=== PATIENT | male | born 1990 | race Caucasian/White ===

== ENCOUNTER 2020-10-14 09:31 | Emergency (ER) | payer MEDICAID, SELFPAY ==
--- NOTE | ~2020-10-14 | XR_ITS ---
EXAMINATION: XR FOREARM, RIGHT CLINICAL INFORMATION: Question foreign body COMPARISON: Right hand x-ray December 2018 TECHNIQUE: AP and lateral views of the right forearm were obtained. FINDINGS: There is a radiopaque soft tissue foreign body suggestive of a needle adjacent to the volar medial proximal shaft of the radius. Soft tissues are otherwise normal. There is an old ununited fracture of the scaphoid bone. No other fracture is seen. XR/XR forearm RT 2V IMPRESSION: Foreign body in the proximal arm adjacent to the radial shaft suggestive of a broken needle. 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
[2020-10-14 09:52] VITALS: BP 150/92; PULSE 90; RESP 16; TEMP 37.1; O2SAT 96; BMI 22.3
--- NOTE | 2020-10-14 10:04 | ED.GENADULT ---
HPI - General Adult General Chief complaint: Skin/Abscess/Foreign Body Stated complaint: cyst Time Seen by Provider: 10/14/20 09:59 Source: patient Limitations: no limitations History of Present Illness HPI narrative: Patient presents with a right forearm abscess. Patient has a longstanding history of IVDA. Patient is also on methadone. Patient unsure if he broke a needle in his arm. Positive swelling erythema and redness over the past 24-48 hours. No discharge at this time similar episodes in the past. Pain 8/10. Currently no nausea vomiting Related Data Previous Rx's Medication Instructions Recorded cephalexin 500 mg capsule 500 mg PO Q8H 10 Days #30 cap 10/14/20 doxycycline hyclate 100 mg capsule 100 mg PO BID #20 cap 10/14/20 Allergies Allergy/AdvReac Type Severity Reaction Status Date / Time No Known Allergies Allergy Unverified 10/31/19 16:56 [No Known Allergies*] Review of Systems Constitutional: Constitutional: Denies chills, Denies fatigue, Denies fever(s) and Denies headache(s) ENT: Reports as per HPI, Denies headache(s) and Denies nasal congestion Cardiovascular: Cardiovascular: Denies chest pain and Denies dyspnea Respiratory: Respiratory: Denies cough and Denies dyspnea Gastrointestinal: Gastrointestinal: Denies nausea and Denies vomiting Musculoskeletal: Musculoskeletal: Reports other (Right forearm pain) Neurologic: Denies headache(s) Endocrine: Endocrine: Denies fatigue Hematologic/Lymphatic: Hematologic/Lymphatic: Denies easy bleeding PMFSH Past Medical History Attestation statement: The following information was validated with the patient. Medical History Alcohol abuse IV drug abuse Surgical History History of tonsillectomy Social History Social History Advance Directives: No Advance Directives Information Provided: No Physical Exam Vital Signs: Vital Signs: Last Vital Signs Temp 98.7 F 10/14/20 09:52 Pulse 90 10/14/20 09:52 Resp 16 10/14/20 09:52 BP 150/92 H 10/14/20 09:52 Pulse Ox 96 10/14/20 09:52 Body Mass Index 22.3 vital signs have been reviewed as normal and appeared to be correct. Blood pressure normal. Heart rate normal. Respiration rate normal. Temperature normal. Oxygen saturation normal. Appearance: Alert. Oriented X3. No acute distress. Head: Normal external exam. Normocephalic. Atraumatic. Eyes: PERRLA. EOMI. Conjunctiva and sclera normal. Eyelids normal. ENT: Pharynx normal. Uvula midline. Moist mucous membranes. Neck: Soft full range of motion, no JVD CVS: Heart regular rate and rhythm no murmurs and rubs Respiratory: Breath sounds are clear to auscultation bilaterally. No accessory muscle use noted. Back: No CVA tenderness. Full range of motion noted. Skin: Right forearm mid positive erythematous indurated abscess present fluctuant Extremities: Positive tenderness right forearm distal pulses sensation intact. Neuro: Oriented X 3. No motor deficit. No sensory deficit. Reflexes normal. Course Course Course Narrative: Right forearm abscess Right forearm cellulitis Right forearm retained foreign body Symptoms consistent with IVDA abscess to the right forearm will get an x-ray at this time to rule out foreign body needle. Plan to do incision and drainage and placed on antibiotics Right forearm x-ray pending Positive foreign bodies seen on x-ray greater than 1 month case discussed with Dr. Rushing follow-up with surgery will be recommended Procedures Procedure Narrative Procedure Narrative: Right forearm incision drainage Right forearm cleaned with Betadine saline Sterile drape Anesthetized with 1% lidocaine Positive purulent discharge obtained with 11 blade no packing placed at this time. Wound dressed. Discharge Plan Discharge Clinical Impression: Abscess, Abscess of skin or subcutaneous tissue, Foreign body (FB) in soft tissue Patient Disposition: Home, Self-Care Instructions: Abscess (ED) Additional Instructions: Avoid IV drug use. Warm compresses 3 to 4 times a day Prescriptions: New doxycycline hyclate 100 mg capsule 100 mg PO BID Qty: 20 RF: 0 cephalexin 500 mg capsule 500 mg PO Q8H 10 Days Qty: 30 RF: 0 Referrals: Kayleigh Saini MD [Physician] - 2 days (Follow-up for right forearm foreign body)
[2020-10-14] MEDS: Lidocaine HCl 1 % 20 ML VIAL INFILTRATI (10:29)
== END 2020-10-14 10:44 | disposition home or self-care (01) ==
PROVIDERS: Emergency Provider Emergency Medicine; PCP Family Medicine
DX: L02.413 Cutaneous abscess of right upper limb (principal); M79.5 Residual foreign body in soft tissue; F19.10 Other psychoactive substance abuse, uncomplicated; F11.20 Opioid dependence, uncomplicated
CPT/HCPCS: 10060; 73090; 99283; 99284

== ENCOUNTER → 2020-10-15 11:21 | Outpatient (BNVA) | payer MEDICAID, SELFPAY | PROVIDERS: PCP Family Medicine; Visit Provider Surgery | DX: M79.5 Residual foreign body in soft tissue (principal) | CPT/HCPCS: 99202 ==

== ENCOUNTER 2020-10-28 09:01 | Day surgery (SDC) | payer MEDICAID, SELFPAY ==
[2020-10-23 13:44] VITALS: BMI 19.6
[2020-10-23 13:47] VITALS: BMI 19.6
--- NOTE | 2020-10-27 09:36 | HO.ANESPROP2 ---
Documented by User: Denise Camargo NP 10/27/20 09:36 HPI - Anesthesia Eval Consult details Narrative: 30yo M for Right Forearm Foreign Body Removal IVDA/Methadone daily PMFSH Active Problems Active Problems: All Active Problems (Updated 10/15/20 @ 11:48 by Aric Timmons MD) Foreign body (FB) in soft tissue (Acute) Past Medical History Medical History Alcohol abuse COVID-19 vaccine series completed IV drug abuse Surgical History Surgical History (Updated 10/28/20 @ 10:53 by Karina Brand MD) History of tonsillectomy Hx of tooth extraction Social History Social History (Updated 10/28/20 @ 11:11 by Karina Brand MD) Household Members Other:: mother Are you a primary critical care unit manager to a significant other at home: No Do you presently have visiting nurse or other home services: No Alcohol intake: current Patient Tobacco Use Status: Current everyday Tobacco user Tobacco use type: Cigarette Cigarettes Per Day: 10 Years Smoked: 13 Smoked in Last 30 Days: Yes Use of substances other than those prescribed or required for medical reasons: Yes Substance Use Type Other:: currently taking methadone Are you DNR?: No Advance Directives: No Advance Directives Information Provided: No Advance Directives on File: No Recently lost weight without trying: No Eating poorly because of decreased appetite: No Nutrition Risks: No Nutritional Risk Meds Allergies Allergy/AdvReac Type Severity Reaction Status Date / Time No Known Allergies Allergy Unverified 10/31/19 16:56 [No Known Allergies*] Exam Exam Date and Time: October 27, 2020 0936 Height,Weight and Vital Signs: Height 5 ft 11 in Weight 64 kg Assessment and Plan Assessment Anesthesia Assessment: Chart Reviewed Documented by User: Karina Brand MD 10/28/20 11:12 PMFSH Past Medical History Medical History Alcohol abuse COVID-19 vaccine series completed IV drug abuse Family History Family history of problems with anesthesia: No Surgical History Surgical History (Updated 10/28/20 @ 10:53 by Karina Brand MD) History of tonsillectomy Hx of tooth extraction History of Problems with Anesthesia: No Social History Social History (Updated 10/28/20 @ 11:11 by Karina Brand MD) Household Members Other:: mother Are you a primary critical care unit manager to a significant other at home: No Do you presently have visiting nurse or other home services: No Alcohol intake: current Patient Tobacco Use Status: Current everyday Tobacco user Tobacco use type: Cigarette Cigarettes Per Day: 10 Years Smoked: 13 Smoked in Last 30 Days: Yes Use of substances other than those prescribed or required for medical reasons: Yes Substance Use Type Other:: currently taking methadone Are you DNR?: No Advance Directives: No Advance Directives Information Provided: No Advance Directives on File: No Recently lost weight without trying: No Eating poorly because of decreased appetite: No Nutrition Risks: No Nutritional Risk Meds Allergies Allergy/AdvReac Type Severity Reaction Status Date / Time No Known Allergies Allergy Unverified 10/31/19 16:56 [No Known Allergies*] Exam Height,Weight and Vital Signs: Height 5 ft 11 in Weight 64 kg Vital Signs Temp Pulse Resp BP Pulse Ox 10/28/20 09:29 97.0 F 77 18 123/86 95 Airway Mallampati Class: II TM Dist: >3cm Neck ROM: Full Loose/Missing/Broken Teeth: Yes (Edentulous) Heart: RRR Lungs: Occasional wheezes bilaterally Assessment and Plan Assessment Anesthesia Assessment: Anesthesia Plan Discussed Final Anesthetic Review Family History of Problems with Anesthesia: No History of Problems with Anesthesia: No NPO: Yes ASA Class: II Final Preanesthetic Review: No Changes in Pt Med Stat, Meds/Allgs Chart Reviewed, Consent Obtained/Reviewed and Anes Risks/Benef Reviewed Patient Risk: Intermediate Procedure Risk: Low Assessment/Block/Sedation in SS: Assess/Block/Sedation-SS Anesthetic Plan Anesthetic Plan: GA Disposition: Standard PACU
--- NOTE | ~2020-10-28 | FL_ITS ---
EXAMINATION: XR FLUOROSCOPY WITH IMAGES CLINICAL INFORMATION: Foreign body removal. COMPARISON: Right forearm x-ray 10/14/2020. TECHNIQUE: Fluoroscopy performed by Dr. Timmons. Fluoroscopy time: 88 seconds DAP: [id number] Images: 4 FINDINGS: 2 views demonstrate a broken needle on surgical sponge. 2 views of the right forearm demonstrate a superficial soft tissue foreign body. FL/FL guidance in OR IMPRESSION: Fluoroscopy guidance for foreign body removal.
[2020-10-28 09:29] VITALS: BP 123/86; PULSE 77; RESP 18; TEMP 36.1; O2SAT 95
[2020-10-28] MEDS: Lactated Ringers 1,000 ML 100 ML IVCONT (09:31)
--- NOTE | 2020-10-28 11:54 | W.PM.OPN ---
Operative Note Operative Note Date of Service: 10/28/20 Narrative: Preoperative diagnosis: Foreign body right forearm Postoperative diagnosis: Same Procedure: Removal of foreign body right forearm with fluoroscopy Surgeon: Aric Timmons MD Workers Compensation Consultant: No physician Anesthesia: General LMA Indications for procedure: 30-year-old male patient with history of IV drug abuse found to have a foreign body in the right forearm consistent with a tuberculin needle. He presents today for removal the foreign body using fluoroscopy guidance. Operative findings: Foreign body right forearm consistent with tuberculin needle. Specimen: Foreign body right forearm Estimated blood loss: 2 cc Complications: None Procedure details: Patient was brought to the OR and placed in a supine position. After administering general anesthesia the patient's right arm and draped in a sterile fashion. A surgical time-out was called the consent confirmed. Betadine boots were in place and preoperative antibiotics were provided. Local anesthesia consisting of 0.5% Sensorcaine was then infiltrated in the right forearm directly over the needle which was localized using fluoroscopy. A longitudinal incision was then made with a scalpel measuring approximately 2 cm. This carried out through subcutaneous tissue using electrocautery. A hemostat was then used to grasp the foreign body again directed by fluoroscopy. Tuberculin needle was then removed and sent to pathology for further examination. Repeat fluoroscopy of the arm revealed no further foreign body. Skin was then closed using interrupted 4-0 nylon sutures. Sterile dressings consisting of 2 x 2 gauze and Tegaderm were then applied. Patient tolerated the procedure well. He was transferred to PACU in stable condition.
--- NOTE | 2020-10-28 12:00 | MHC.SHP ---
Pre-Procedural Eval Section A Date of Service: 10/28/20 The patient is an INPATIENT: No Changes since office visit: Yes Patient answered all questions; No Cold of Flu in the past 2 weeks, No New Medical Problems and No Changes in Medication The History & Physical has been completed within 30 days and I have reviewed it.: Yes Section B Chief Complaint: Foreign body in soft tissue Allergies: Allergies Allergy/AdvReac Type Severity Reaction Status Date / Time No Known Allergies Allergy Unverified 10/31/19 16:56 [No Known Allergies*] Plan Diagnosis/Plan: Unchanged I have reviewed the history and physical and performed a pertinent physical examination on my patient. No changes have occurred unless specified.
[2020-10-28 12:03] VITALS: BP 119/69; PULSE 50; RESP 10; TEMP 36.8; O2SAT 98
[2020-10-28 12:08] VITALS: BP 119/67; PULSE 47; RESP 17; O2SAT 97
[2020-10-28 12:20] VITALS: BP 117/71; PULSE 47; RESP 20; O2SAT 97
[2020-10-28 12:33] VITALS: BP 123/76; PULSE 60; RESP 16; TEMP 36.8; O2SAT 96
== END 2020-10-28 13:45 | disposition home or self-care (01) ==
PROVIDERS: PCP Family Medicine; Visit Provider Surgery
PROC: (CPT 10120; principal; 2020-10-28 10:50)
DX: M79.5 Residual foreign body in soft tissue (principal); Z18.10 Retained metal fragments, unspecified; F11.10 Opioid abuse, uncomplicated; F10.10 Alcohol abuse, uncomplicated; F17.210 Nicotine dependence, cigarettes, uncomplicated
CPT/HCPCS: 10120; 88300; J0690; J1885; J2250; J2405; J3010

== ENCOUNTER → 2020-11-06 11:05 | Outpatient (BNVA) | payer MEDICAID, SELFPAY | PROVIDERS: PCP Family Medicine; Referring Provider Family Medicine; Visit Provider Surgery | DX: Z48.817 Encounter for surgical aftercare following surgery on the skin and subcutaneous tissue (principal); F19.10 Other psychoactive substance abuse, uncomplicated; Z87.2 Personal history of diseases of the skin and subcutaneous tissue | CPT/HCPCS: 99212 ==

== ENCOUNTER 2020-11-15 10:21 | Emergency (ER) | payer MEDICAID, SELFPAY ==
--- NOTE | ~2020-11-15 | CT_ITS ---
EXAMINATION: CT HEAD WITHOUT CONTRAST CLINICAL INFORMATION: New onset seizure. COMPARISON: None TECHNIQUE: Contiguous axial imaging was performed from the skull base to vertex without intravenous administration of contrast. Coronal and sagittal reformatted images were obtained. This CT examination was performed using dose optimization techniques as appropriate, variously including the following: *Automated exposure control *Adjustment of mA and/or kV according to patient size (this includes techniques or standardized protocols for targeted exams where dose is matched to indication/reason for exam; i.e. extremities or head) *Use of iterative reconstruction technique DLP: 929 mGy-cm FINDINGS: There is no evidence of acute intracranial hemorrhage or territorial infarction. No abnormal mass effect or midline shift is seen. Gaitan to white matter differentiation is well preserved. No extra-axial fluid collections are identified. The ventricles are normal in size. There is no abnormal attenuation within the brain parenchyma. The osseous structures and soft tissues are normal. The mastoid air cells and visualized portions of the paranasal sinuses are well aerated. CT/CT head/brain wo con IMPRESSION: No acute intracranial pathology.
[2020-11-15 10:39] VITALS: BP 100/60; BP 130/87; PULSE 106; PULSE 120; RESP 16; TEMP 35.9; O2SAT 96; O2SAT 97; BMI 22.3
[2020-11-15 11:36] LABS: MANUAL DIFF FLAG NO
[2020-11-15 11:37] LABS: Basophils Percent Auto 0.4 % (0-2); Eosinophils Percent Auto 0.2 % (0-4); Hematocrit 41.8 % (42-52); Hemoglobin 14.3 g/dl (14.0-18.0); Imm Gran Abs Auto 0.01 X10*3/uL (0.00-0.03); Imm Gran Pct Auto 0.2 % (0.0-0.4); Lymphocytes Absolute Auto 0.8 X10*3/uL (1.2-4.9); Lymphocytes Percent Auto 15.4 % (20-40); Mean Corpuscular HGB Conc 34.2 g/dl (31.0-36.0); Mean Corpuscular Hemoglobin 30.8 pg (27.0-33.0); Mean Corpuscular Volume 89.9 fL (80-98); Mean Platelet Volume 10.7 fL (9.4-12.4); Monocytes Absolute Auto 0.4 X10*3/uL (0.1-1.2); Monocytes Percent Auto 6.8 % (2-11); Neutrophils Absolute Auto 4.1 X10*3/uL (2.0-8.3); Platelet Count 169 X10*3/uL (160-400); Red Blood Count 4.65 X10*6/uL (4.60-5.80); Red Cell Distribution Width 11.6 % (11.0-16.0); White Blood Count 5.3 X10*3/uL (4.8-10.8)
--- NOTE | 2020-11-15 11:40 | ED_ITS ---
HPI - Seizure General Chief Complaint: Seizure Stated Complaint: seizure Time Seen by Provider: 11/15/20 10:47 Source: patient Mode of arrival: EMS Limitations: no limitations History of Present Illness HPI Narrative: Patient history of substance abuse clean for some time on methadone 95 mg daily drinks alcohol and use marijuana last drink was 16:00 went to methadone clinic to get his methadone dose , in the clinic waiting area patient had a generalized tonic-clonic seizure lasted for few minutes patient had the last dose about that on on 11/13 has not used any drugs last 3 - 4 days was not able to sleep last night not on any Wellbutrin or tramadol no head injury no other injuries no recent head trauma or headache no fever or chills. Patient never had any seizures in the past Related Data Previous Rx's Medication Instructions Recorded cephalexin 500 mg capsule 500 mg PO Q8H 10 Days #30 cap 10/14/20 doxycycline hyclate 100 mg capsule 100 mg PO BID #20 cap 10/14/20 Allergies Allergy/AdvReac Type Severity Reaction Status Date / Time No Known Allergies Allergy Unverified 10/31/19 16:56 [No Known Allergies*] Review of Systems Review of Systems: Yes all other systems are reviewed and are negative PMFSH Past Medical History Medical History Alcohol abuse COVID-19 vaccine series completed IV drug abuse Surgical History History of tonsillectomy Hx of tooth extraction Social History Social History Household Members Other:: mother Are you a primary director of health care marketing to a significant other at home: No Do you presently have visiting nurse or other home services: No Alcohol intake: current Patient Tobacco Use Status: Current everyday Tobacco user Tobacco use type: Cigarette Cigarettes Per Day: 10 Years Smoked: 13 Advance Directives: No Advance Directives Information Provided: No Physical Exam Vital Signs: Vital Signs: Last Vital Signs Temp 96.7 F L 11/15/20 10:39 Pulse 106 H 11/15/20 10:39 Resp 16 11/15/20 10:39 BP 130/87 11/15/20 10:39 Pulse Ox 96 11/15/20 10:39 Body Mass Index 22.3 Appearance: Alert. Oriented X3. No acute distress. Eyes: PERRLA, No Nystagmus ENT: Pharynx normal. Oral Mucosa moist edentulous Neck: Normal inspection. Neck supple. CVS: Normal heart rate and rhythm. Pulses normal. Respiratory: No respiratory distress. Equal air entry bilateral, no wheezing/rales/rhonchi Abdomen: Soft and nontender. Bowel sounds are present, no mass palpable, no CVA tenderness Skin: Skin warm and dry. Normal skin color. Normal skin turgor. IVDA arias Extremities: No lower extremity edema. No calf tenderness Neuro: Oriented X 3. No motor deficit. No sensory deficit.No cerebellar signs , cranial nerves II-XII intact MDM - Seizure Medical Records Attestation: I reviewed the patient's medical records. Medical records narrative: Patient new onset seizure etiology not very clear possible substance abuse patient denies any history of alcohol withdrawal seizures. At this time patient workup is negative CT scan is negative advised to follow with neurologist patient eloped from the ER without discharge papers Lab Data Attestation: I reviewed the patient's lab results. Result diagrams: 11/15/20 11:30 11/15/20 11:30 Labs: Lab Results 11/15/20 11/15/20 11/15/20 Range/Units 11:30 11:30 11:30 WBC 5.3 (4.8-10.8) X10*3/uL RBC 4.65 (4.60-5.80) X10*6/uL Hgb 14.3 (14.0-18.0) g/dl Hct 41.8 L (42-52) % MCV 89.9 (80-98) fL MCH 30.8 (27.0-33.0) pg MCHC 34.2 (31.0-36.0) g/dl RDW 11.6 (11.0-16.0) % Plt Count 169 (160-400) X10*3/uL MPV 10.7 (9.4-12.4) fL Immature Gran % (Auto) 0.2 (0.0-0.4) % Neut % (Auto) 77.0 H (45-73) % Lymph % (Auto) 15.4 L (20-40) % [place] % (Auto) 6.8 (2-11) % Eos % (Auto) 0.2 (0-4) % Baso % (Auto) 0.4 (0-2) % Lymph # (Auto) 0.8 L (1.2-4.9) X10*3/uL [place] # (Auto) 0.4 (0.1-1.2) X10*3/uL Eos # (Auto) 0.0 (0.0-0.4) X10*3/uL Baso # (Auto) 0.0 (0.0-0.2) X10*3/uL Abs Immat Gran (auto) 0.01 (0.00-0.03) X10*3/uL Absolute Neuts (auto) 4.1 (2.0-8.3) X10*3/uL Absolute Nucleated RBC 0.000 (0.0-0.012) X10*3/uL Nucleated RBC % (auto) 0.0 (0.0-0.2) /100WBC Sodium 138 (135-145) mmol/L Potassium 4.0 (3.3-5.1) mmol/L Chloride 102 (96-108) mmol/L Carbon Dioxide 22 (22-29) mmol/L Anion Gap 18 (12-20) BUN 15 (9-16) mg/dL Creatinine 0.74 (0.5-1.4) mg/dL Estim Creat Clear Calc 148.4 Estimated GFR > 60 Random Glucose 129 H (60-115) mg/dL Calcium 10.1 (8.4-10.2) mg/dL Magnesium 2.1 (1.6-2.6) mg/dL Total Bilirubin 1.2 H (0.0-1.0) mg/dL AST 155 H (5-37) U/L ALT 176 H (0-40) U/L Alkaline Phosphatase 102 (39-117) U/L Total Protein 8.1 H (6.5-8.0) g/dL Albumin 4.8 (3.5-5.0) g/dL Urine Opiates Screen (Not Detect) Urine Fentanyl Screen (Not Detect) Ur Barbiturates Screen (Not Detect) Ur Phencyclidine Scrn (Not Detect) Ur Amphetamines Screen (Not Detect) U Benzodiazepines Scrn (Not Detect) Urine Cocaine Screen (Not Detect) U Marijuana (THC) Screen (Not Detect) Ethyl Alcohol < 10 mg/dL COVID-19 (ESA) (Negative) COVID-19 Clin Com 11/15/20 11/15/20 Range/Units 11:30 11:31 WBC (4.8-10.8) X10*3/uL RBC (4.60-5.80) X10*6/uL Hgb (14.0-18.0) g/dl Hct (42-52) % MCV (80-98) fL MCH (27.0-33.0) pg MCHC (31.0-36.0) g/dl RDW (11.0-16.0) % Plt Count (160-400) X10*3/uL MPV (9.4-12.4) fL Immature Gran % (Auto) (0.0-0.4) % Neut % (Auto) (45-73) % Lymph % (Auto) (20-40) % [place] % (Auto) (2-11) % Eos % (Auto) (0-4) % Baso % (Auto) (0-2) % Lymph # (Auto) (1.2-4.9) X10*3/uL [place] # (Auto) (0.1-1.2) X10*3/uL Eos # (Auto) (0.0-0.4) X10*3/uL Baso # (Auto) (0.0-0.2) X10*3/uL Abs Immat Gran (auto) (0.00-0.03) X10*3/uL Absolute Neuts (auto) (2.0-8.3) X10*3/uL Absolute Nucleated RBC (0.0-0.012) X10*3/uL Nucleated RBC % (auto) (0.0-0.2) /100WBC Sodium (135-145) mmol/L Potassium (3.3-5.1) mmol/L Chloride (96-108) mmol/L Carbon Dioxide (22-29) mmol/L Anion Gap (12-20) BUN (9-16) mg/dL Creatinine (0.5-1.4) mg/dL Estim Creat Clear Calc Estimated GFR Random Glucose (60-115) mg/dL Calcium (8.4-10.2) mg/dL Magnesium (1.6-2.6) mg/dL Total Bilirubin (0.0-1.0) mg/dL AST (5-37) U/L ALT (0-40) U/L Alkaline Phosphatase (39-117) U/L Total Protein (6.5-8.0) g/dL Albumin (3.5-5.0) g/dL Urine Opiates Screen Not Detected (Not Detect) Urine Fentanyl Screen POSITIVE H (Not Detect) Ur Barbiturates Screen Not Detected (Not Detect) Ur Phencyclidine Scrn Not Detected (Not Detect) Ur Amphetamines Screen Not Detected (Not Detect) U Benzodiazepines Scrn Not Detected (Not Detect) Urine Cocaine Screen POSITIVE H (Not Detect) U Marijuana (THC) Screen Not Detected (Not Detect) Ethyl Alcohol mg/dL COVID-19 (SEA) Negative (Negative) COVID-19 Clin Com See Note Discharge Plan Discharge Clinical Impression: Generalized seizure Patient Disposition: Home, Self-Care Instructions: New-Onset Seizure in Adults (ED) Additional Instructions: Stop using alcohol Follow-up with neurologist for further evaluation Prescriptions: No Action doxycycline hyclate 100 mg capsule 100 mg PO BID Qty: 20 RF: 0 cephalexin 500 mg capsule 500 mg PO Q8H 10 Days Qty: 30 RF: 0 Referrals: Jaimee Allred MD [Physician] - 1 week Discharge Date/Time: 11/15/20 13:37
[2020-11-15 11:52] LABS: Amphetamine Screen Urine Not Detected (Not Detect); Barbiturates, Urine Not Detected (Not Detect); Benzodiazepines Screen Urine Not Detected (Not Detect); Cannabinoid Screen Urine Not Detected (Not Detect); Cocaine Screen Urine POSITIVE (Not Detect); Fentanyl, urine POSITIVE (Not Detect); Opiate Screen Urine Not Detected (Not Detect); Phencyclidine Screen Urine Not Detected (Not Detect)
[2020-11-15 11:53] LABS: COVID-19 Test Negative (Negative); IDNOW Serial# 9DD0AD1C
[2020-11-15 11:56] LABS: Ethanol < 10 mg/dL
[2020-11-15 12:02] LABS: Alanine Aminotransferase 176 U/L (0-40); Albumin Level 4.8 g/dL (3.5-5.0); Alkaline Phosphatase 102 U/L (39-117); Anion Gap 18 (12-20); Aspartate Amino Transferase 155 U/L (5-37); Bilirubin Total 1.2 mg/dL (0.0-1.0); Blood Urea Nitrogen 15 mg/dL (9-16); Calcium 10.1 mg/dL (8.4-10.2); Carbon Dioxide 22 mmol/L (22-29); Chloride 102 mmol/L (96-108); Creatinine Clr Calc Pharmacy 148.4; Estimated Glomerular Filt Rate > 60; Glucose Random 129 mg/dL (60-115); Magnesium 2.1 mg/dL (1.6-2.6); Sodium 138 mmol/L (135-145); Total Protein 8.1 g/dL (6.5-8.0)
--- NOTE | 2020-11-15 13:00 | PC.NURSE ---
pt is not at bedside, md aware..
== END 2020-11-15 13:37 | disposition home or self-care (01) ==
PROVIDERS: Emergency Provider Internal Medicine
DX: R56.9 Unspecified convulsions (principal); F17.210 Nicotine dependence, cigarettes, uncomplicated; Z20.822 Contact with and (suspected) exposure to COVID-19; Z79.899 Other long term (current) drug therapy; Z71.6 Tobacco abuse counseling
CPT/HCPCS: 36415; 70450; 80053; 80307; 82077; 83735; 85025; 87635; 99283; 99284

== ENCOUNTER 2021-03-13 16:39 | Emergency (ER) | payer MEDICAID, SELFPAY ==
[2021-03-13 16:49] VITALS: BMI 23.8
[2021-03-13 16:52] VITALS: BP 139/98; PULSE 100; RESP 18; O2SAT 98
[2021-03-13 17:04] VITALS: BP 134/89; PULSE 97; RESP 22; O2SAT 96
[2021-03-13 17:33] LABS: Basophils Percent Auto 0.5 % (0-2); Eosinophils Absolute Auto 0.2 X10*3/uL (0.0-0.4); Eosinophils Percent Auto 3.8 % (0-4); Hematocrit 42.4 % (42.0-52.0); Hemoglobin 13.4 g/dl (14.0-18.0); Imm Gran Abs Auto 0.02 X10*3/uL (0.00-0.03); Imm Gran Pct Auto 0.3 % (0.0-0.4); Lymphocytes Absolute Auto 2.7 X10*3/uL (1.2-4.9); Lymphocytes Percent Auto 45.8 % (20-40); MANUAL DIFF FLAG NO; Mean Corpuscular HGB Conc 31.6 g/dl (31.0-36.0); Mean Corpuscular Hemoglobin 28.1 pg (27.0-33.0); Mean Corpuscular Volume 88.9 fL (80.0-98.0); Mean Platelet Volume 11.2 fL (9.4-12.4); Monocytes Absolute Auto 0.5 X10*3/uL (0.1-1.2); Monocytes Percent Auto 8.5 % (2-11); Neutrophils Absolute Auto 2.4 x10*3/uL (2.0-8.3); Neutrophils Percent Auto 41.1 % (45-73); Platelet Count 160 X10*3/uL (160-400); Red Blood Count 4.77 X10*6/uL (4.60-5.80); Red Cell Distribution Width 12.8 % (11.0-16.0); White Blood Count 5.8 X10*3/uL (4.8-10.8)
[2021-03-13] MEDS: Lidocaine HCl 2% PF/Epi 1:200 20 ML VIAL INFILTRATI (17:36)
[2021-03-13 17:39] LABS: Prothrombin Time 11.2 SEC (9.9-13.0)
--- NOTE | 2021-03-13 17:41 | PC.NURSE ---
Pt had stitches placed by PA with this RN present, pt tolerated well. Pt remains calm and cooperative with staff. 2 IVs remain intact. Pt blood drawn by lab due to being difficult stick. Pt seen by PD. Pt vitals remain stable.
[2021-03-13 17:42] LABS: Partial Thromboplastin Time 31.6 SEC (24.1-38.0)
[2021-03-13 17:52] VITALS: BP 120/80; PULSE 85; RESP 18; TEMP 36.9; O2SAT 96
[2021-03-13 17:52] LABS: Alanine Aminotransferase 62 U/L (0-40); Albumin Level 3.9 g/dL (3.5-5.0); Alkaline Phosphatase 112 U/L (39-117); Anion Gap 16 (12-20); Aspartate Amino Transferase 59 U/L (5-37); Bilirubin Total 0.3 mg/dL (0.0-1.0); Blood Urea Nitrogen 12 mg/dL (9-16); Calcium 9.3 mg/dL (8.4-10.2); Carbon Dioxide 23 mmol/L (22-29); Chloride 107 mmol/L (96-108); Creatinine Clr Calc Pharmacy 155.6; Estimated Glomerular Filt Rate > 60; Glucose Random 100 mg/dL (60-115); Potassium 3.8 mmol/L (3.3-5.1); Sodium 142 mmol/L (135-145); Total Protein 6.7 g/dL (6.5-8.0)
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
[2021-03-13] MEDS: Diphth,Pertus(ACell),Tet Adult 0.5 ML SYRINGE IM (18:18)
== END 2021-03-13 18:58 | disposition home or self-care (01) ==
PROVIDERS: Emergency Provider Emergency Medicine Emergency Medical Services
DX: S71.111A Laceration without foreign body, right thigh, initial encounter (principal); X99.1XXA Assault by knife, initial encounter; F19.10 Other psychoactive substance abuse, uncomplicated; F17.200 Nicotine dependence, unspecified, uncomplicated; Y93.9 Activity, unspecified; Y92.9 Unspecified place or not applicable; Y99.9 Unspecified external cause status
CPT/HCPCS: 12032; 36415; 80053; 85025; 85610; 85730; 90471; 90715; 99283; 99284

== ENCOUNTER 2021-03-29 16:21 | Emergency (ER) | payer MEDICAID, SELFPAY ==
[2021-03-29 16:41] VITALS: BP 155/98; PULSE 93; RESP 18; TEMP 36.7; O2SAT 99; BMI 21.5
--- NOTE | 2021-03-29 18:56 | ED.PSYCH ---
HPI - Psych General Chief Complaint: Psychiatric Symptoms Stated Complaint: crisis and seizures vomiting Time Seen by Provider: 03/29/21 18:56 Source: patient Mode of arrival: ambulatory Limitations: no limitations History of Present Illness HPI Narrative: Patient alcoholic with history of substance abuse been to detox last year,for last 2 months been drinking heavy, stress at home his father in December. Drinks vodka unable to eat anything for last 2-3 days been vomiting multiple times requesting to go to detox denies any significant abdominal pain also feel depressed Related Data Allergies Allergy/AdvReac Type Severity Reaction Status Date / Time No Known Allergies Allergy Verified 03/29/21 19:01 [No Known Allergies*] Review of Systems Review of Systems: Yes all other systems are reviewed and are negative [facility] Past Medical History Medical History Alcohol abuse COVID-19 vaccine series completed IV drug abuse Surgical History History of tonsillectomy Hx of tooth extraction Social History Social History Household Members Other:: mother Are you a primary foster care social worker to a significant other at home: No Do you presently have visiting nurse or other home services: No Alcohol intake: current Alcohol intake frequency: 3 or more drinks per day Alcohol type: hard liquor Patient Tobacco Use Status: Never used Tobacco Tobacco use type: Cigarette Cigarettes Per Day: 10 Years Smoked: 13 Use of substances other than those prescribed or required for medical reasons: Yes Substance Use Type: Heroin Substance Use Frequency: Chronic Longstanding Last Used Substance: Unknown Advance Directives: No Advance Directives Information Provided: Yes Physical Exam Vital Signs: Vital Signs: Last Vital Signs Temp 98.7 F 03/30/21 00:45 Pulse 85 03/30/21 00:45 Resp 12 03/30/21 00:45 BP 121/69 03/30/21 00:45 Pulse Ox 93 03/30/21 00:45 BMI result Body Mass Index 21.5 Appearance: Alert. Oriented X3. No acute distress. Anxious ETOH+ Eyes: No pallor/ icterus ENT: Pharynx normal. Oral Mucosa moist Neck: Normal inspection. Neck supple. CVS: Normal heart rate and rhythm. Pulses normal. Respiratory: No respiratory distress. Equal air entry bilateral, no wheezing/rales/rhonchi Abdomen: Soft and nontender. Bowel sounds are present, no mass palpable, no CVA tenderness Skin: Skin warm and dry. Normal skin color. Normal skin turgor. Extremities: No lower extremity edema. No calf tenderness, infected abrasion left calf area Neuro: Oriented X 3. No motor deficit. No sensory deficit.No cerebellar signs , cranial nerves II-XII intact MDM - Psych MDM Narrative Medical decision making narrative: Patient's history of depression alcohol use no suicidal ideation at this time patient will get crisis evaluation as pt significant depression with alcoholism Lab Data Attestation: I reviewed the patient's lab results. Result diagrams: 03/29/21 19:21 03/29/21 19:21 Labs: Lab Results 03/29/21 03/29/21 03/29/21 Range/Units 19:21 19:21 19:21 WBC 5.3 (4.8-10.8) X10*3/uL RBC 4.73 (4.60-5.80) X10*6/uL Hgb 13.0 L (14.0-18.0) g/dl Hct 40.9 L (42.0-52.0) % MCV 86.5 (80.0-98.0) fL MCH 27.5 (27.0-33.0) pg MCHC 31.8 (31.0-36.0) g/dl RDW 13.2 (11.0-16.0) % Plt Count 167 (160-400) X10*3/uL MPV 10.0 (9.4-12.4) fL Immature Gran % (Auto) 0.2 (0.0-0.4) % Neut % (Auto) 56.1 (45-73) % Lymph % (Auto) 34.1 (20-40) % [place] % (Auto) 9.0 (2-11) % Eos % (Auto) 0.2 (0-4) % Baso % (Auto) 0.4 (0-2) % Lymph # (Auto) 1.8 (1.2-4.9) X10*3/uL [place] # (Auto) 0.5 (0.1-1.2) X10*3/uL Eos # (Auto) 0.0 (0.0-0.4) X10*3/uL Baso # (Auto) 0.0 (0.0-0.2) X10*3/uL Abs Immat Gran (auto) 0.01 (0.00-0.03) X10*3/uL Absolute Neuts (auto) 3.0 (2.0-8.3) x10*3/uL Absolute Nucleated RBC 0.000 (0.0-0.012) X10*3/uL Nucleated RBC % (auto) 0.0 (0.0-0.2) /100WBC Sodium 143 (135-145) mmol/L Potassium 4.1 (3.3-5.1) mmol/L Chloride 99 (96-108) mmol/L Carbon Dioxide 32 H (22-29) mmol/L Anion Gap 16 (12-20) BUN 7 L (9-16) mg/dL Creatinine 0.67 (0.5-1.4) mg/dL Estim Creat Clear Calc 153.7 Estimated GFR > 60 Random Glucose 102 (60-115) mg/dL Calcium 10.4 H D (8.4-10.2) mg/dL Magnesium 2.3 (1.6-2.6) mg/dL Total Bilirubin 0.6 (0.0-1.0) mg/dL AST 73 H (5-37) U/L ALT 49 H (0-40) U/L Alkaline Phosphatase 152 H D (39-117) U/L Total Protein 8.5 H D (6.5-8.0) g/dL Albumin 4.9 D (3.5-5.0) g/dL Lipase 27 (8-78) U/L Urine Color Urine Appearance Urine pH (5.0-8.0) Ur Specific [place] (1.005-1.025) Urine Protein (NEG-TRACE) MG/DL Urine Glucose (UA) (NEG) MG/DL Urine Ketones (NEG) MG/DL Urine Blood (NEG) Urine Nitrite (NEG) Ur Leukocyte Esterase (NEG) Ethyl Alcohol mg/dL COVID-19 (ESA) Negative (Negative) COVID-19 Clin Com See Note 03/29/21 03/29/21 Range/Units 19:21 21:09 WBC (4.8-10.8) X10*3/uL RBC (4.60-5.80) X10*6/uL Hgb (14.0-18.0) g/dl Hct (42.0-52.0) % MCV (80.0-98.0) fL MCH (27.0-33.0) pg MCHC (31.0-36.0) g/dl RDW (11.0-16.0) % Plt Count (160-400) X10*3/uL MPV (9.4-12.4) fL Immature Gran % (Auto) (0.0-0.4) % Neut % (Auto) (45-73) % Lymph % (Auto) (20-40) % [place] % (Auto) (2-11) % Eos % (Auto) (0-4) % Baso % (Auto) (0-2) % Lymph # (Auto) (1.2-4.9) X10*3/uL [place] # (Auto) (0.1-1.2) X10*3/uL Eos # (Auto) (0.0-0.4) X10*3/uL Baso # (Auto) (0.0-0.2) X10*3/uL Abs Immat Gran (auto) (0.00-0.03) X10*3/uL Absolute Neuts (auto) (2.0-8.3) x10*3/uL Absolute Nucleated RBC (0.0-0.012) X10*3/uL Nucleated RBC % (auto) (0.0-0.2) /100WBC Sodium (135-145) mmol/L Potassium (3.3-5.1) mmol/L Chloride (96-108) mmol/L Carbon Dioxide (22-29) mmol/L Anion Gap (12-20) BUN (9-16) mg/dL Creatinine (0.5-1.4) mg/dL Estim Creat Clear Calc Estimated GFR Random Glucose (60-115) mg/dL Calcium (8.4-10.2) mg/dL Magnesium (1.6-2.6) mg/dL Total Bilirubin (0.0-1.0) mg/dL AST (5-37) U/L ALT (0-40) U/L Alkaline Phosphatase (39-117) U/L Total Protein (6.5-8.0) g/dL Albumin (3.5-5.0) g/dL Lipase (8-78) U/L Urine Color YELLOW Urine Appearance CLEAR Urine pH 6.5 (5.0-8.0) Ur Specific [place] 1.010 (1.005-1.025) Urine Protein NEG (NEG-TRACE) MG/DL Urine Glucose (UA) NEG (NEG) MG/DL Urine Ketones NEG (NEG) MG/DL Urine Blood NEG (NEG) Urine Nitrite NEG (NEG) Ur Leukocyte Esterase NEG (NEG) Ethyl Alcohol 405 H* mg/dL COVID-19 (ESA) (Negative) COVID-19 Clin Com Discharge Plan Discharge Clinical Impression: Depression, Alcohol abuse
[2021-03-29 19:03] VITALS: BP 155/98; PULSE 93; RESP 15; TEMP 36.7; O2SAT 99
[2021-03-29] MEDS: 0.9 % Sodium Chloride 1,000 ML 999 ML IV ×2 (19:24→21:04)
[2021-03-29] MEDS: LORazepam 2 MG/ML VIAL 1 MG IVPUSH (19:33)
[2021-03-29] MEDS: Famotidine/PF 20 MG/2 ML VIAL IVPUSH (19:34)
[2021-03-29] MEDS: ondansetron HCL 4 MG/2 ML VIAL IVPUSH (19:34)
[2021-03-29] MEDS: Folic Acid 1 MG TABLET PO (19:34)
[2021-03-29] MEDS: Thiamine HCL 100 MG TABLET PO (19:34)
[2021-03-29 19:37] LABS: MANUAL DIFF FLAG NO
[2021-03-29 19:39] LABS: Basophils Percent Auto 0.4 % (0-2); Eosinophils Percent Auto 0.2 % (0-4); Hematocrit 40.9 % (42.0-52.0); Imm Gran Abs Auto 0.01 X10*3/uL (0.00-0.03); Imm Gran Pct Auto 0.2 % (0.0-0.4); Lymphocytes Absolute Auto 1.8 X10*3/uL (1.2-4.9); Lymphocytes Percent Auto 34.1 % (20-40); Mean Corpuscular HGB Conc 31.8 g/dl (31.0-36.0); Mean Corpuscular Hemoglobin 27.5 pg (27.0-33.0); Mean Corpuscular Volume 86.5 fL (80.0-98.0); Monocytes Absolute Auto 0.5 X10*3/uL (0.1-1.2); Neutrophils Percent Auto 56.1 % (45-73); Platelet Count 167 X10*3/uL (160-400); Red Blood Count 4.73 X10*6/uL (4.60-5.80); Red Cell Distribution Width 13.2 % (11.0-16.0); White Blood Count 5.3 X10*3/uL (4.8-10.8)
[2021-03-29 19:52] LABS: Ethanol 405 mg/dL
[2021-03-29 19:55] LABS: Alanine Aminotransferase 49 U/L (0-40); Albumin Level 4.9 g/dL (3.5-5.0); Alkaline Phosphatase 152 U/L (39-117); Anion Gap 16 (12-20); Aspartate Amino Transferase 73 U/L (5-37); Bilirubin Total 0.6 mg/dL (0.0-1.0); Blood Urea Nitrogen 7 mg/dL (9-16); Calcium 10.4 mg/dL (8.4-10.2); Carbon Dioxide 32 mmol/L (22-29); Chloride 99 mmol/L (96-108); Creatinine Clr Calc Pharmacy 153.7; Estimated Glomerular Filt Rate > 60; Glucose Random 102 mg/dL (60-115); Lipase 27 U/L (8-78); Magnesium 2.3 mg/dL (1.6-2.6); Potassium 4.1 mmol/L (3.3-5.1); Sodium 143 mmol/L (135-145); Total Protein 8.5 g/dL (6.5-8.0)
[2021-03-29 20:00] VITALS: BP 114/72; PULSE 82; RESP 15; TEMP 36.7; O2SAT 92
[2021-03-29 20:10] LABS: COVID-19 Test Negative (Negative); IDNOW Serial# 9DD0AD1C
[2021-03-29] MEDS: cephALEXin 500 MG CAPSULE PO (20:33)
--- NOTE | 2021-03-29 20:54 | MHC.RECOVSUP ---
? Reason for consult:Recovery Support o Current location:[facility] o Identified substance use concern:Heroin,ETOH - Withdrawal - Seeking ATS (detox) - Support ? Intervention: o ATS bed search started/completed/in process o MAT started or to be started o Community resources provided o Harm reduction discussion ? Plan: o Bed search in progress to o Follow up tomorrow o Patient awaiting crisis evaluation o Patient to follow up with [facility] after discharge ? Additional information:Pt. seeking detox. Referred patient to [facility].
[2021-03-29 21:20] LABS: Appearance Urine CLEAR; Color Urine YELLOW; Glucose Urine UA NEG (NEG); Leukocyte Esterase Urine NEG (NEG); Nitrite Urine NEG (NEG); PH 6.5 (5.0-8.0); Urine Blood NEG (NEG); Urine Ketones NEG (NEG); Urine Protein NEG (NEG-TRACE)
[2021-03-29 22:00] VITALS: RESP 15; O2SAT 92
[2021-03-30 00:45] VITALS: BP 121/69; PULSE 85; RESP 12; TEMP 37.1; O2SAT 93
[2021-03-30 02:10] VITALS: BP 119/83; PULSE 87; RESP 14; TEMP 36.9; O2SAT 92
[2021-03-30 04:21] VITALS: BP 128/70; PULSE 74; RESP 12; TEMP 36.9; O2SAT 92
[2021-03-30 06:45] VITALS: BP 137/82; PULSE 77; RESP 12; TEMP 36.9; O2SAT 94
--- NOTE | 2021-03-30 06:50 | PC.NURSE ---
Patient slept all night without issues. No signs of withdrawel as of yet
--- NOTE | 2021-03-30 07:28 | MHC.CARE ---
Smart sheet submitted at [id number]
--- NOTE | 2021-03-30 07:35 | PC.NURSE ---
pt is refusing etox bed/placement, dr. fernandez at bedside, pt awar of plan of care.
[2021-03-30] MEDS: Acetaminophen 325 MG TABLET 650 MG PO (08:33)
[2021-03-30] MEDS: LORazepam 1 MG TABLET 2 MG PO (08:33)
[2021-03-30] MEDS: cephALEXin 500 MG CAPSULE PO (08:34)
== END 2021-03-30 08:53 | disposition home or self-care (01) ==
PROVIDERS: Emergency Provider Internal Medicine
DX: F10.20 Alcohol dependence, uncomplicated (principal); Y90.8 Blood alcohol level of 240 mg/100 ml or more; F32.A Depression, unspecified; Z20.822 Contact with and (suspected) exposure to COVID-19; S80.812A Abrasion, left lower leg, initial encounter; X58.XXXA Exposure to other specified factors, initial encounter; F41.9 Anxiety disorder, unspecified; F19.10 Other psychoactive substance abuse, uncomplicated; F17.200 Nicotine dependence, unspecified, uncomplicated; Y93.9 Activity, unspecified; Y92.9 Unspecified place or not applicable; Y99.9 Unspecified external cause status
CPT/HCPCS: 36415; 80053; 81003; 82077; 83690; 83735; 85025; 87635; 96361; 96374; 96375; 96376; 99285; J2060; J2405

== ENCOUNTER 2021-03-30 19:11 | Emergency (ER) | payer MEDICAID, SELFPAY ==
--- NOTE | ~2021-03-30 | CT_ITS ---
EXAMINATION: NONCONTRAST HEAD CT NONCONTRAST MAXILLOFACIAL CT INDICATION INFORMATION: Facial injury. COMPARISON: CT head dated from 11/15/2020. TECHNIQUE: Separate noncontrast CT examinations of the head and maxillofacial bones were performed. Coronal and sagittal images were created for each examination at the technologist workstation. This CT examination was performed using dose optimization techniques as appropriate, variously including the following: *Automated exposure control *Adjustment of mA and/or kV according to patient size (this includes techniques or standardized protocols for targeted exams where dose is matched to indication/reason for exam; i.e. extremities or head) *Use of iterative reconstruction technique DLP: 317 mGy-cm FINDINGS: Head: Comminuted and depressed by approximately 1 cm right frontoparietal skull fracture. There is no evidence of acute territorial infarction or intracranial hemorrhage. No abnormal mass effect or midline shift is seen. Gaitan to white matter differentiation is well preserved. No extra-axial collections. No hydrocephalus. No significant volume loss. There is no abnormal attenuation within the brain parenchyma. No acute soft tissue abnormality. The mastoid air cells are well aerated. Maxillofacial: No acute maxillofacial fractures are seen. The frontal, maxillary, ethmoid, and sphenoid sinuses are well aerated. The nasal septum is deviated to the right. The mandibular heads are well-seated in the condylar fossa. The orbits demonstrate a normal appearance bilaterally. The globes are intact, and there are no suspicious findings to suggest retrobulbar hemorrhage. There is an odontoid fracture with approximately [address]/CT facial bones wo con IMPRESSION: Age indeterminate comminuted and depressed right frontoparietal skull fracture. This is however new since 11/15/2020. Also age indeterminate odontoid fracture. No priors are available for comparison. No acute intracranial hemorrhage or edematous territorial infarction. No acute maxillofacial fractures. This critical result was discussed with Dr. Nila Roman at 03/30/2021 8:57 PM and it was ascertained that the content and urgency of the report was understood at the time of direct communication.
--- NOTE | ~2021-03-30 | XR_ITS ---
EXAMINATION: XR HAND, RIGHT CLINICAL INFORMATION: Injury. COMPARISON: Radiograph of the right hand dated from 12/18/2018. TECHNIQUE: PA, lateral, and oblique views of the right hand. FINDINGS: Postsurgical changes in the scaphoid with an obliquely oriented cannulated screw traversing a fracture that demonstrates nonunion. There is subtle lucency surrounding the screw in the proximal pole of the scaphoid. No acute fractures or malalignment. No unexpected radiopaque foreign bodies or subcutaneous air. XR/XR hand RT 2V IMPRESSION: Nonspecific subtle lucency surrounding the proximal aspect of the scaphoid screw which could be related with hardware loosening/malfunction. Chronic scaphoid fracture with nonunion. No new fractures.
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
[2021-03-30 19:29] VITALS: BP 140/96; PULSE 94; O2SAT 100
[2021-03-30 19:33] VITALS: BP 148/102; PULSE 74; RESP 18; TEMP 36.6; O2SAT 95; BMI 22.4
[2021-03-30 20:31] LABS: COVID-19 Test Negative (Negative)
[2021-03-30 20:41] LABS: Ethanol 357 mg/dL
[2021-03-30] MEDS: LORazepam 1 MG TABLET 2 MG PO (21:26)
[2021-03-30 23:22] LABS: Amphetamine Screen Urine Not Detected (Not Detect); Barbiturates, Urine Not Detected (Not Detect); Benzodiazepines Screen Urine Not Detected (Not Detect); Cannabinoid Screen Urine Not Detected (Not Detect); Cocaine Screen Urine Not Detected (Not Detect); Fentanyl, urine POSITIVE (Not Detect); Opiate Screen Urine POSITIVE (Not Detect); Phencyclidine Screen Urine Not Detected (Not Detect)
[2021-03-31 00:43] VITALS: BP 113/75; PULSE 89; RESP 17; TEMP 37.2; O2SAT 95
--- NOTE | 2021-03-31 05:52 | PC.NURSE ---
Patient slept through the night , no distress observed/reported, asymptomatic of withdrawal at this time, behavior appropriate, patient will be evaluated by manager recovery to find detox bed as requested by the patient, VSS, will continue to monitor.
--- NOTE | 2021-03-31 07:32 | PC.NURSE ---
patient appears to remain asleep at present, respirations are even and unlabored patient appears in no distress
--- NOTE | 2021-03-31 07:33 | PC.NURSE ---
late entry: mother had called in and inquired to patient status. patient mom states hes at risk to hurt himself mother informed that client will be offered swervices when interviewed this am.
--- NOTE | 2021-03-31 10:22 | MHC.RECOVSUP ---
? Reason for consult:Recovery Support o Current location: [facility] o Identified substance use concern:heroin - Withdrawal - Seeking ATS (detox) - Support ? Intervention: o ATS bed search started/completed/in process o Community resources provided o Harm reduction discussion ? Plan: o Patient to follow up with [facility] after discharge ? Additional information: Patient refuses detox, patient has a plan to go to [facility] and receive his methadone dose.
== END 2021-03-31 11:08 | disposition home or self-care (01) ==
PROVIDERS: Emergency Provider Emergency Medicine
DX: F10.129 Alcohol abuse with intoxication, unspecified (principal); S69.91XA Unspecified injury of right wrist, hand and finger(s), initial encounter; G44.309 Post-traumatic headache, unspecified, not intractable; F17.210 Nicotine dependence, cigarettes, uncomplicated; M54.2 Cervicalgia; Y90.8 Blood alcohol level of 240 mg/100 ml or more; W01.0XXA Fall on same level from slipping, tripping and stumbling without subsequent striking against object, initial encounter; Y93.9 Activity, unspecified; Y92.9 Unspecified place or not applicable; Y99.9 Unspecified external cause status; Z20.822 Contact with and (suspected) exposure to COVID-19; Z71.6 Tobacco abuse counseling; Z79.899 Other long term (current) drug therapy
CPT/HCPCS: 36415; 70450; 70486; 73120; 80307; 82077; 87635; 99284

== ENCOUNTER 2022-03-17 09:52 | Emergency (ER) | payer OTHER, SELFPAY ==
[2022-03-17 10:57] VITALS: BP 143/89; PULSE 85; RESP 18; TEMP 36.6; O2SAT 97; BMI 27.8
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
== END 2022-03-17 11:20 | disposition home or self-care (01) ==
PROVIDERS: Emergency Provider Emergency Medicine; PCP Family Medicine
DX: L03.113 Cellulitis of right upper limb (principal); M79.601 Pain in right arm; F11.20 Opioid dependence, uncomplicated; F10.10 Alcohol abuse, uncomplicated; F19.10 Other psychoactive substance abuse, uncomplicated; F17.210 Nicotine dependence, cigarettes, uncomplicated
CPT/HCPCS: 99282; 99283

== ENCOUNTER 2023-04-17 08:49 | Emergency (ER) | payer OTHER, SELFPAY ==
[2023-04-17 09:10] VITALS: BP 146/92; PULSE 77; RESP 19; TEMP 36.6; O2SAT 98; BMI 27.3
[2023-04-17 09:48] LABS: MANUAL DIFF FLAG NO
[2023-04-17 09:51] LABS: Basophils Percent Auto 0.1 % (0-2); Hematocrit 45.2 % (42.0-52.0); Hemoglobin 14.5 g/dl (14.0-18.0); Imm Gran Abs Auto 0.03 X10*3/uL (0.00-0.03); Imm Gran Pct Auto 0.4 % (0.0-0.4); Lymphocytes Absolute Auto 2.3 X10*3/uL (1.2-4.9); Lymphocytes Percent Auto 27.6 % (20-40); Mean Corpuscular HGB Conc 32.1 g/dl (31.0-36.0); Mean Corpuscular Hemoglobin 27.7 pg (27.0-33.0); Mean Corpuscular Volume 86.3 fL (80.0-98.0); Mean Platelet Volume 10.3 fL (9.4-12.4); Monocytes Absolute Auto 0.5 X10*3/uL (0.1-1.2); Monocytes Percent Auto 6.3 % (2-11); Neutrophils Absolute Auto 5.5 x10*3/uL (2.0-8.3); Neutrophils Percent Auto 65.6 % (45-73); Platelet Count 222 X10*3/uL (160-400); Red Blood Count 5.24 X10*6/uL (4.60-5.80); Red Cell Distribution Width 12.4 % (11.0-16.0); White Blood Count 8.3 X10*3/uL (4.8-10.8)
[2023-04-17 10:04] LABS: Anion Gap 11 (12-20); Blood Urea Nitrogen 11 mg/dL (9-16); Calcium 10.4 mg/dL (8.4-10.2); Carbon Dioxide 30 mmol/L (22-29); Chloride 104 mmol/L (96-108); Creatinine Clr Calc Pharmacy 132.3; Estimated Glomerular Filt Rate > 60; Glucose Random 103 mg/dL (60-115); Potassium 4.6 mmol/L (3.3-5.1); Sodium 140 mmol/L (135-145)
[2023-04-17 10:14] LABS: Appearance Urine Clear; Color Urine Yellow; Glucose Urine UA Negative (Negative); Leukocyte Esterase Urine Negative (Negative); Nitrite Urine Negative (Negative); PH 6.5 (5.0-9.0); Urine Blood Negative (Negative); Urine Ketones Trace mg/dL (Negative); Urine Protein Negative (Neg-Trace)
[2023-04-17 10:19] LABS: Bacteria Urine None Seen (None Seen); Hyaline Casts Urine 0-2 /LPF (0-2); RBC Urine 0-2 /HPF (0-2); Squamous Epithelial Cell Urine 0-2 /HPF (0-2); WBC Urine 0-5 /HPF (0-5)
--- NOTE | 2023-04-17 10:30 | ED_ITS ---
HPI - Wound/Laceration General Chief Complaint: Wound/Laceration Stated Complaint: Swollen hands Time Seen by Provider: 04/17/23 09:35 Source: patient and family Mode of arrival: ambulatory Limitations: no limitations History of Present Illness HPI narrative: 32-year-old male with a past medical history of IV drug abuse presents to the emergency department, mother, for concerns for nonhealing wounds and swelling of bilateral hands. He reports he injected fentanyl and cocaine into his right forearm and left hand roughly 1 week ago. He denies any noted fevers, chills, lymphangitis. Related Data Home Medications Medication Instructions Recorded Confirmed albuterol sulfate 90 mcg/actuation 2 puff inhalation QID PRN wheezing 06/07/22 06/07/22 aerosol inhaler (Ventolin HFA) clonidine HCl 0.1 mg tablet 0.1 mg PO TID 06/07/22 06/07/22 hydroxyzine HCl 50 mg tablet 50 mg PO BID PRN anxiety 06/07/22 06/07/22 mirtazapine 30 mg tablet 30 mg PO BEDTIME 06/07/22 06/07/22 omeprazole 20 mg tablet,delayed 20 mg PO DAILY 06/07/22 06/07/22 release prazosin 1 mg capsule 1 mg PO BEDTIME 06/07/22 06/07/22 Previous Rx's Medication Instructions Recorded cephalexin 500 mg capsule 500 mg PO BID #20 caps 06/07/22 cephalexin 500 mg tablet 500 mg PO QID 7 days #28 tabs 04/17/23 Allergies Allergy/AdvReac Type Severity Reaction Status Date / Time No Known Allergies Allergy Verified 04/17/23 09:10 [No Known Allergies*] Review of Systems 2 Review of Systems: Yes all other systems are reviewed and are negative [facility] Past Medical History Medical History Alcohol abuse COVID-19 vaccine series completed IV drug abuse Surgical History History of tonsillectomy Hx of tooth extraction Social History Social History Household Members Other:: mother Are you a primary farm or ranch animal caretaker to a significant other at home: No Do you presently have visiting nurse or other home services: No Alcohol intake: current Alcohol intake frequency: 3 or more drinks per day Alcohol type: hard liquor Patient Tobacco Use Status: Never used Tobacco Tobacco use type: Cigarette Cigarettes Per Day: 10 Years Smoked: 13 Substance Use Type: Heroin Advance Directives: No Physical Exam 2 Vital Signs: Vital Signs: Last Vital Signs Temp 98 F 04/17/23 09:10 Pulse 77 04/17/23 09:10 Resp 19 04/17/23 09:10 BP 146/92 H 04/17/23 09:10 Pulse Ox 98 04/17/23 09:10 O2 Del Method Room Air 04/17/23 09:10 BMI result Body Mass Index 27.3 Nursing notes and vital signs reviewed. GENERAL APPEARANCE: A&0 x 4, generally well appearing, no acute distress HENMT: Normal to inspection, atraumatic, face symmetrical. Normal external ears, nose, and oropharynx clear. EYE: PERRLA, EOM intact, structures appear normal NECK: Supple without stiffness or restricted ROM. HEART: Normal rate and regular rhythm, normal S1/S2, no M/R/G LUNGS: LS CTA, moving air well. Able to speak in complete sentences. No crackles, wheezes, or rhonchi auscultated BACK: No CVAT, no obvious deformity EXTREMITIES: Moving all extremities without difficulty. Edema bilateral lower arms. 1.5 cm erythema with swelling and centrally located 8 mm wound. NEUROLOGICAL: Alert and oriented, moving all 4 extremities with equal strength. CN not formally tested but appearing grossly intact. Observed to ambulate with normal gait. Cognition normal SKIN: Warm and dry without any lesions, rash, or visible sores Medications Administered Discontinued Medications Generic Name Dose Route Start Last Admin Trade Name Freq PRN Reason Stop Dose Admin Cephalexin HCl 500 mg 04/17/23 10:15 04/17/23 10:48 Cephalexin 500 Mg Capsule PO 04/17/23 10:16 500 mg ONCE ONE Administration Medical Decision Making Medical Decision Making MDM Narrative: Old records reviewed for previous imaging, lab studies, ECGs, and notes. Patient was assessed the emergency department with no acute distress or toxicity noted. Blood work showing no evidence of leukocytosis, anemia, organ dysfunction, or electrolyte imbalance. Urinalysis unremarkable with no signs of urinary tract infection. Plan for 7 day course of cephalexin, 4 times a day, with 1st dose given here in the emergency department. Patient reports that he is on the list at to detox facilities including [facility] in [place] and plans to continue searching for a detox bed. He declined speaking with substance abuse counselor here [facility]. Patient is safe for discharge at this time with plan for [id number] Tylenol and/or NSAID such as ibuprofen or naproxen for fever/discomfort with dosing as per packaging. HPI, PE, diagnostics, and plan discussed with patient and family with no unanswered questions at this time. Strict return precautions given to return to the emergency department with new, worsening, or concerning emergent symptoms. Recommended to follow-up with there primary care provider in 24-48 hours for further treatment and management. Differential Diagnosis Differential Diagnoses: The differential diagnosis associated with the presentation includes But not limited to abscess, ulcer, cellulitis, sepsis, malignancy Lab Data MDM Lab Attestation statement: I reviewed the patient's lab results. 04/17/23 09:38 04/17/23 09:38 Labs: Lab Results 04/17/23 04/17/23 Range/Units 09:38 10:01 WBC 8.3 (4.8-10.8) X10*3/uL RBC 5.24 (4.60-5.80) X10*6/uL Hgb 14.5 (14.0-18.0) g/dl Hct 45.2 (42.0-52.0) % MCV 86.3 (80.0-98.0) fL MCH 27.7 (27.0-33.0) pg MCHC 32.1 (31.0-36.0) g/dl RDW 12.4 (11.0-16.0) % Plt Count 222 D (160-400) X10*3/uL MPV 10.3 (9.4-12.4) fL Immature Gran % (Auto) 0.4 (0.0-0.4) % Neut % (Auto) 65.6 (45-73) % Lymph % (Auto) 27.6 (20-40) % [place] % (Auto) 6.3 (2-11) % Eos % (Auto) 0.0 (0-4) % Baso % (Auto) 0.1 (0-2) % Lymph # (Auto) 2.3 (1.2-4.9) X10*3/uL [place] # (Auto) 0.5 (0.1-1.2) X10*3/uL Eos # (Auto) 0.0 (0.0-0.4) X10*3/uL Baso # (Auto) 0.0 (0.0-0.2) X10*3/uL Abs Immat Gran (auto) 0.03 (0.00-0.03) X10*3/uL Absolute Neuts (auto) 5.5 (2.0-8.3) x10*3/uL Absolute Nucleated RBC 0.000 (0.0-0.012) X10*3/uL Nucleated RBC % (auto) 0.0 (0.0-0.2) /100WBC Sodium 140 (135-145) mmol/L Potassium 4.6 (3.3-5.1) mmol/L Chloride 104 (96-108) mmol/L Carbon Dioxide 30 H (22-29) mmol/L Anion Gap 11 L (12-20) BUN 11 (9-16) mg/dL Creatinine 0.82 (0.5-1.4) mg/dL Estim Creat Clear Calc 132.3 Estimated GFR > 60 Random Glucose 103 (60-115) mg/dL Calcium 10.4 H (8.4-10.2) mg/dL Urine Color Yellow Urine Appearance Clear Urine pH 6.5 (5.0-9.0) Ur Specific [place] 1.020 (1.005-1.025) Urine Protein Negative (Neg-Trace) mg/dL Urine Glucose (UA) Negative (Negative) mg/dL Urine Ketones Trace (Negative) mg/dL Urine Blood Negative (Negative) Urine Nitrite Negative (Negative) Ur Leukocyte Esterase Negative (Negative) Urine RBC 0-2 (0-2) /HPF Urine WBC 0-5 (0-5) /HPF Ur Squamous Epith Cells 0-2 (0-2) /HPF Urine Bacteria None Seen (None Seen) Hyaline Casts 0-2 (0-2) /LPF Independent Historian Clinical information obtained from an independent historian. History obtained from or confirmed by: Parent External Record Review External record reviewed: Inpatient record, Outpatient record and Prior outpatient labs Discharge Plan Discharge Clinical Impression: IV drug abuse, Cellulitis Patient Disposition: Home, Self-Care Instructions: Cellulitis (ED), Polysubstance Abuse (ED), Warm Compress or Soak (ED) Prescriptions: New cephalexin 500 mg tablet 500 mg PO QID 7 Days Qty: 28 0RF No Action omeprazole 20 mg tablet,delayed release (DR/EC) 20 mg PO DAILY mirtazapine 30 mg tablet 30 mg PO BEDTIME clonidine HCl 0.1 mg tablet 0.1 mg PO TID hydroxyzine HCl 50 mg tablet 50 mg PO BID PRN (Reason: anxiety) prazosin 1 mg capsule 1 mg PO BEDTIME albuterol sulfate [Ventolin HFA] 90 mcg/actuation HFA aerosol inhaler 2 puff inhalation QID PRN (Reason: wheezing) cephalexin 500 mg capsule 500 mg PO BID Qty: 20 0RF Referrals: Arturo Jon MD [Primary Care Provider] - Print Language: Comoran
[2023-04-17] MEDS: cephALEXin 500 MG CAPSULE PO (10:48)
== END 2023-04-17 11:29 | disposition home or self-care (01) ==
PROVIDERS: Nurse Practitioner Family; Physician Assistant Medical; Emergency Provider Emergency Medicine; PCP Family Medicine
DX: L03.114 Cellulitis of left upper limb (principal); L03.113 Cellulitis of right upper limb; F11.10 Opioid abuse, uncomplicated; F14.10 Cocaine abuse, uncomplicated
CPT/HCPCS: 36415; 80048; 81001; 85025; 99282; 99283

== ENCOUNTER 2023-07-14 23:14 | Emergency (ER) | payer OTHER, SELFPAY ==
--- NOTE | ~2023-07-14 | XR_ITS ---
EXAMINATION: XR FINGER, LEFT CLINICAL INFORMATION: Fifth digit deformity. COMPARISON: None available. TECHNIQUE: 3 radiographs of the left fifth digit. FINDINGS: There is dislocation of the middle phalanx of the fifth digit in relation to the proximal phalanx. There is no convincing associated fracture. Remaining osseous structures are normal in appearance. XR/XR finger LT min 2V IMPRESSION: There is dislocation of the middle phalanx of the fifth digit in relation to the proximal phalanx. There is no convincing associated fracture.
[2023-07-14 23:29] VITALS: BP 135/87; PULSE 98; RESP 18; TEMP 36.8; O2SAT 95; BMI 26.3
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
[2023-07-15 01:11] VITALS: BP 132/80; PULSE 96; RESP 17; TEMP 36.8; O2SAT 98
--- NOTE | 2023-07-15 01:12 | PC.NURSE ---
left fifth digit manually reduced per Dr. Mcmullen and joao taped per EDTA.
== END 2023-07-15 01:12 | disposition home or self-care (01) ==
PROVIDERS: Emergency Provider Emergency Medicine Emergency Medical Services; PCP Family Medicine
DX: S63.287A Dislocation of proximal interphalangeal joint of left little finger, initial encounter (principal); Y04.8XXA Assault by other bodily force, initial encounter; Y93.9 Activity, unspecified; Y92.9 Unspecified place or not applicable; Y99.9 Unspecified external cause status
CPT/HCPCS: 26770; 73140; 99284

== ENCOUNTER 2023-07-21 09:49 | Inpatient (IN) | payer OTHER, SELFPAY ==
--- NOTE | ~2023-07-21 | XR_ITS ---
EXAMINATION: XR WRIST, RIGHT CLINICAL INFORMATION: Pain and swelling. Fall COMPARISON: Previous x-ray June 2023 TECHNIQUE: PA, lateral, and oblique views of the right wrist. FINDINGS: No acute fracture or dislocation. There is screw fixation of scaphoid fracture. This appears unchanged with question of partial nonunion and lucency surrounding the proximal portion of the screw. There are degenerative changes at the scapholunate and radiocarpal joint. Joint spaces are otherwise normal. Soft tissues are normal. XR/XR wrist RT min 3V IMPRESSION: No acute fracture or dislocation. Screw fixation of the scaphoid bone with question of partial nonunion of the fracture and lucency surrounding the proximal portion of the screw questionable for loosening..
[2023-07-21 10:24] VITALS: BP 118/69; PULSE 68; RESP 18; TEMP 36.5; O2SAT 98; BMI 27.2
[2023-07-21 11:56] VITALS: BP 115/80; PULSE 70; TEMP 36.5; O2SAT 98
--- NOTE | 2023-07-21 12:09 | ED.EXTPRO ---
HPI - Extremity Problem General Chief complaint: Extremity Problem Stated complaint: wrist inj Time Seen by Provider: 07/21/23 12:20 Source: patient, RN notes reviewed and old records reviewed Mode of arrival: ambulatory Limitations: no limitations History of Present Illness ED Provider: ANIKET OSPINA PA-C HPI Narrative: 32-year-old [id number] male with past medical history significant for IV drug use, ETOH abuse presents to the ED today for evaluation of right hand/wrist pain/swelling x24 hours. Admits pain is worsening and has noticed redness to his hand that is now extending up his right arm. He reports decreased range of motion of the wrist. He does admit to injecting fentanyl and cocaine into the right hand 2 days ago. Denies drug use or etoh consumption today. Admits to drinking alcohol yesterday and can not recall if he fell onto his right hand. Reports taking 2 doses of an old amoxicillin prescription prior to arrival in ED. Denies fever, chills, nausea or vomiting. Related Data Home Medications ?Medication ?Instructions ?Recorded ?Confirmed clonidine HCl 0.1 mg tablet 0.1 mg PO TID 06/07/22 07/21/23 hydroxyzine HCl 50 mg tablet 50 mg PO BID anxiety 06/07/22 07/21/23 omeprazole 20 mg tablet,delayed 20 mg PO DAILY PRN Heartburn 06/07/22 07/21/23 release prazosin 1 mg capsule 1 mg PO BEDTIME 06/07/22 07/21/23 mirtazapine 45 mg tablet 45 mg PO BEDTIME 07/21/23 07/21/23 Allergies Allergy/AdvReac Type Severity Reaction Status Date / Time No Known Allergies Allergy Verified 07/21/23 10:26 [No Known Allergies*] Review of Systems Review of Systems: Constitutional: No fever, chills, fatigue, night sweats, weight changes ENT/Mouth: No ear pain, hearing loss, nasal congestion, sinus pain, rhinorrhea, sore throat Eyes: No eye pain, swelling, redness, vision changes, discharge Cardio: No chest pain, palpitations, ROJO, orthopnea, peripheral edema Pulm: No SOB, cough, sputum, wheezing, dyspnea, hemoptysis GI: No nausea, vomiting, hematemesis, abdominal pain, diarrhea, constipation, hematochezia, melena : No irregular bleeding, dysuria, frequency, urgency, hesitancy, hematuria, flank pain, urinary flow changes, urinary incontinence or retention MSK: No back pain, neck pain, joint pain, myalgias, +right hand/wrist pain/swelling Skin: No lesions, rashes Neuro: No weakness, numbness, paresthesias, LOC, dizziness, headache Psych: No anxiety/panic, depression, SI/HI, AH/VH All other systems reviewed and are negative. [facility] Past Medical History Attestation statement: The following information was validated with the patient. Source: old records reviewed and nursing notes reviewed Medical History COVID-19 vaccine series completed IV drug abuse Alcohol abuse Surgical History Hx of tooth extraction History of tonsillectomy Social History Social History Household Members Other:: mother Are you a primary human services care specialist to a significant other at home: No Do you presently have visiting nurse or other home services: No Alcohol intake: current Alcohol intake frequency: 3 or more drinks per day Alcohol type: hard liquor Patient Tobacco Use Status: Never used Tobacco Tobacco use type: Cigarette Cigarettes Per Day: 10 Years Smoked: 13 Substance Use Type: Heroin Advance Directives: No Physical Exam Vital Signs: Vital Signs: Last Vital Signs Temp 97.3 F 07/21/23 16:00 Pulse 58 07/21/23 16:00 Resp 18 07/21/23 10:24 BP 120/65 07/21/23 16:00 Pulse Ox 96 07/21/23 16:00 O2 Del Method Room Air 07/21/23 16:00 BMI result Body Mass Index 27.2 Vital signs stable, afebrile Const: General: cooperative, comfortable and no acute distress Orientation/consciousness: patient oriented x3 Limitations: no limitations HEENT: Head: Yes normal to inspection, Yes No palpable skull fracture present, Yes normocephalic and Yes atraumatic Eyes: General: appearance normal, both eyes and all related structures Neck: Neck: Yes normal visual inspection, Yes full ROM, Yes no lymphadenopathy and Yes no meningeal signs Resp: Effort & Inspection: normal respiratory effort and able to speak in complete sentences Auscultation: clear to auscultation bilaterally Cardio: Rate: regular rate Rhythm: regular rhythm GI: Inspection: Yes normal to inspection Palpation (GI): Soft to palpation and nontender Back/Spine/Pelvis: Other: No midline spinous tenderness or step off deformity. No paraspinal muscle tenderness. Skin: Other: + see below Neuro: General: patient oriented x3, gait normal and no meningeal signs Extrem: Other: + refer to photos below + noted erythema and swelling to right hand/wrist, predominantly along tendon sheaths. Slight streaking noted to radial aspect of wrist extending into forearm. Diffusely tender to palpation without palpable deformity. Able to move all digits however unable to form a closed fist. Limited ROM noted to right wrist. 2+ radial and ulnar pulse intact. Course Course Course Narrative: 1315-- Discussed xray findings with ortho RUDY Chandra who states there is no acute orthopedic intervention warranted at this time. I do feel patient meets admission criteria for tenosynovitis requiring IV antibiotic therapy. I reached out to hospitalist RUDY Reza who will consider patient for admission pending lab work. > IV vanco and zosyn ordered 1443-- labs without leukocytosis or left shift. Slightly anemic with H&H 13.8/40.5. Chemistry without acute electrolyte abnormality requiring intervention. Elevated AST/ALT, chronic when compared to priors. Likely secondary to chronic alcohol abuse. CRP elevated to 7.29. ESR WNL. lactic wnl. No concern for sepsis at this time. > I was informed by RN that patient may be in alcohol withdrawal. CIWA noted to be 8. Patient reports that he is a daily drinker. He last consumed alcohol at 2:00 a.m. yesterday morning. He reports history of alcohol withdrawal seizures. Phenobarbital protocol ordered. > patient to be admitted to medicine. Lamar Reza to put in admission orders. Medications Administered Generic Name Dose Route Start Last Admin Trade Name Freq PRN Reason Stop Dose Admin Enoxaparin Sodium 40 mg 07/21/23 14:45 07/21/23 15:12 Enoxaparin Sodium 40 Mg/0.4 Ml Syringe SUBCUT Not Given Q24H [facility] Morphine Sulfate 2 mg 07/21/23 14:42 07/21/23 16:18 Morphine Sulfate 4 Mg/Ml Cartridge IVPUSH 2 mg Q3H PRN Administration Pain, Severe (Pain Scale 7-10) Protocol Sodium Chloride 3 ml 07/21/23 16:00 07/21/23 17:56 0.9 % Sodium Chloride Flush 3 Ml Syringe IVFLUSH Not Given QSHIFT ROSIE Discontinued Medications Generic Name Dose Route Start Last Admin Trade Name Ezio PRN Reason Stop Dose Admin Vancomycin HCl 2,000 mg in 500 mls @ 250 mls/hr 07/21/23 12:43 07/21/23 14:55 Vancomycin/Ns IV 07/21/23 14:42 250 mls/hr ONCE ONE Administration Piperacillin Sod/Tazobactam 50 mls @ 100 mls/hr 07/21/23 12:43 07/21/23 14:55 Sod 3.375 gm/ Sodium Chloride IV 07/21/23 13:12 Infused ONCE ONE Infusion Ondansetron HCl 4 mg 07/21/23 12:33 07/21/23 14:00 Ondansetron Hcl 4 Mg/2 Ml Vial IVPUSH 07/21/23 12:34 4 mg ONCE ONE Administration Phenobarbital Sodium 345 mg 07/21/23 15:00 07/21/23 15:31 Phenobarbital Sodium 130 Mg/Ml Im Once IM 07/21/23 15:01 345 mg ONCE ONE Administration Protocol Medical Decision Making Medical Decision Making MDM Narrative: 32-year-old [id number]-juinpwyc male with past medical history significant for IV drug use, ETOH abuse presents to the ED today for evaluation of right hand/wrist pain/swelling x24 hours. Vital signs stable. Afebrile. He is nontoxic-appearing and in no acute distress. On exam, noted erythema and swelling to right hand/wrist, predominantly along tendon sheaths. Slight streaking noted to radial aspect of wrist extending into forearm. Diffusely tender to palpation without palpable deformity. Able to move all digits however unable to form a closed fist. Limited ROM noted to right wrist. 2+ radial and ulnar pulse intact. Differential diagnosis includes fracture, dislocation, cellulitis, tenosynovitis, osteomyelitis. Unlikely neurovascular compromise, threat to limb, compartment syndrome. Plan for imaging, pain control, labs, re-evaluation. Differential Diagnosis Differential Diagnoses: The differential diagnosis associated with the presentation includes as above. Admission/Observation Consideration of admission/observation: Escalation of care including admission/observation considered Patient to be admitted to medicine for IV antibiotics. Consult Healthcare Provider Management of the patient was discussed with: Hospitalist (RUDY Alfredo) and Raw Stock Machine Feeder (Palma Chandra) Lab Data MDM Lab Attestation statement: I reviewed the patient's lab results. as above. 07/21/23 13:42 07/21/23 13:42 Labs: Lab Results 07/21/23 Range/Units 13:42 WBC 6.0 (4.8-10.8) X10*3/uL RBC 4.86 (4.60-5.80) X10*6/uL Hgb 13.8 L (14.0-18.0) g/dl Hct 41.5 L (42.0-52.0) % MCV 85.4 (80.0-98.0) fL MCH 28.4 (27.0-33.0) pg MCHC 33.3 (31.0-36.0) g/dl RDW 12.7 (11.0-16.0) % Plt Count 145 L D (160-400) X10*3/uL MPV 10.7 (9.4-12.4) fL Immature Gran % (Auto) 0.3 (0.0-0.4) % Neut % (Auto) 53.7 (45-73) % Lymph % (Auto) 32.6 (20-40) % [place] % (Auto) 11.6 H (2-11) % Eos % (Auto) 1.3 (0-4) % Baso % (Auto) 0.5 (0-2) % Lymph # (Auto) 2.0 (1.2-4.9) X10*3/uL [place] # (Auto) 0.7 (0.1-1.2) X10*3/uL Eos # (Auto) 0.1 (0.0-0.4) X10*3/uL Baso # (Auto) 0.0 (0.0-0.2) X10*3/uL Abs Immat Gran (auto) 0.02 (0.00-0.03) X10*3/uL Absolute Neuts (auto) 3.2 (2.0-8.3) x10*3/uL Absolute Nucleated RBC 0.000 (0.0-0.012) X10*3/uL Nucleated RBC % (auto) 0.0 (0.0-0.2) /100WBC Smear Tech's Comments VERIFIED ESR 14 (0-15) MM/HR Sodium 140 (135-145) mmol/L Potassium 4.0 (3.3-5.1) mmol/L Chloride 102 (96-108) mmol/L Carbon Dioxide 31 H (22-29) mmol/L Anion Gap 11 L (12-20) BUN 9 (9-16) mg/dL Creatinine 0.65 (0.5-1.4) mg/dL Estim Creat Clear Calc 166.9 Estimated GFR > 60 Random Glucose 88 (60-115) mg/dL Lactic Acid 0.9 (0.5-2.0) mmol/L Calcium 9.9 (8.4-10.2) mg/dL Magnesium 1.8 (1.6-2.6) mg/dL Total Bilirubin 0.5 (0.0-1.0) mg/dL AST 57 H (5-37) U/L ALT 86 H (0-40) U/L Alkaline Phosphatase 78 (39-117) U/L C-Reactive Protein 7.29 H (< or = 0.50) mg/dL Total Protein 7.3 (6.5-8.0) g/dL Albumin 4.2 (3.5-5.0) g/dL Lipase 15 (8-78) U/L Independent Interpretation I performed an independent interpretation of an: Plain X-Ray Interpretation: XR right wrist without acute fracture, agree with radiologist's interpretation. Radiology Impression Discussion of test interpretation with radiology: I have reviewed the radiologist's reading. Radiologist Impression: EXAMINATION: XR WRIST, RIGHT CLINICAL INFORMATION: Pain and swelling. Fall COMPARISON: Previous x-ray June 2023 TECHNIQUE: PA, lateral, and oblique views of the right wrist. FINDINGS: No acute fracture or dislocation. There is screw fixation of scaphoid fracture. This appears unchanged with question of partial nonunion and lucency surrounding the proximal portion of the screw. There are degenerative changes at the scapholunate and radiocarpal joint. Joint spaces are otherwise normal. Soft tissues are normal. XR/XR wrist RT min 3V IMPRESSION: No acute fracture or dislocation. Screw fixation of the scaphoid bone with question of partial nonunion of the fracture and lucency surrounding the proximal portion of the screw questionable for loosening.. External Record Review External record reviewed: Inpatient record, Office record, Outpatient record, Prior outpatient labs, Prior outpatient radiology, Primary care record and Outside ED record Prescription Management I considered prescription management with: Pain Medication and Antibiotic Chronic Conditions Patient?s care impacted by: Other (IVDU, etoh abuse) Social Determinants Patient?s care significantly limited by Social Determinants of Health including: Alcoholism and drug addiction in family and Other Social Determinant of Health Critical Care Time Critical Care Time Critical Care Time: Yes Total Critical Care Time: 40 Attestation: phenobarb protocol with frequent re-eval, IV vanc/zosyn, consultation with hospitalist Discharge Plan Discharge Clinical Impression: Tenosynovitis, IV drug abuse, Alcohol abuse, Alcohol withdrawal Patient Disposition: Admitted As Inpatient
[2023-07-21 13:56] LABS: Basophils Percent Auto 0.5 % (0-2); Eosinophils Absolute Auto 0.1 X10*3/uL (0.0-0.4); Eosinophils Percent Auto 1.3 % (0-4); Hematocrit 41.5 % (42.0-52.0); Hemoglobin 13.8 g/dl (14.0-18.0); Imm Gran Abs Auto 0.02 X10*3/uL (0.00-0.03); Imm Gran Pct Auto 0.3 % (0.0-0.4); Lymphocytes Percent Auto 32.6 % (20-40); MANUAL DIFF FLAG SCAN; Mean Corpuscular HGB Conc 33.3 g/dl (31.0-36.0); Mean Corpuscular Hemoglobin 28.4 pg (27.0-33.0); Mean Corpuscular Volume 85.4 fL (80.0-98.0); Monocytes Absolute Auto 0.7 X10*3/uL (0.1-1.2); Monocytes Percent Auto 11.6 % (2-11); Neutrophils Absolute Auto 3.2 x10*3/uL (2.0-8.3); Neutrophils Percent Auto 53.7 % (45-73); Red Blood Count 4.86 X10*6/uL (4.60-5.80); Red Cell Distribution Width 12.7 % (11.0-16.0); SCAN SMEAR FLAG 1
[2023-07-21 14:00] VITALS: BP 110/72; PULSE 67; TEMP 36.8; O2SAT 95
[2023-07-21] MEDS: ondansetron HCL 4 MG/2 ML VIAL IVPUSH (14:00)
[2023-07-21] MEDS: Piperacillin Sodium/Tazobactam 3.375 GM in 0.9 % Sodium Chloride 50 ML IV ×2 (14:03→20:49)
[2023-07-21 14:06] LABS: Lactic Acid 0.9 mmol/L (0.5-2.0)
[2023-07-21 14:10] LABS: Alanine Aminotransferase 86 U/L (0-40); Albumin Level 4.2 g/dL (3.5-5.0); Alkaline Phosphatase 78 U/L (39-117); Anion Gap 11 (12-20); Aspartate Amino Transferase 57 U/L (5-37); Bilirubin Total 0.5 mg/dL (0.0-1.0); Blood Urea Nitrogen 9 mg/dL (9-16); C Reactive Protein 7.29 mg/dL (< or = 0.50); Calcium 9.9 mg/dL (8.4-10.2); Carbon Dioxide 31 mmol/L (22-29); Chloride 102 mmol/L (96-108); Creatinine Clr Calc Pharmacy 166.9; Estimated Glomerular Filt Rate > 60; Glucose Random 88 mg/dL (60-115); Lipase 15 U/L (8-78); Magnesium 1.8 mg/dL (1.6-2.6); Sodium 140 mmol/L (135-145); Total Protein 7.3 g/dL (6.5-8.0)
[2023-07-21 14:23] LABS: Mean Platelet Volume 10.7 fL (9.4-12.4); Platelet Count 145 X10*3/uL (160-400); SLIDE REVIEW VERIFIED
[2023-07-21 14:42] LABS: Erythrocyte Sedimentation Rate 14 MM/HR (0-15)
--- NOTE | 2023-07-21 14:53 | PM.IMHP ---
History of Present Illness Date of Service: 07/21/23 Attending physician on admission: Leon Luu Chief Complaint: right hand pain and swelling This is a 32-year-old male with history of IV drug abuse who presents to the emergency department with pain, redness, swelling of his right hand. He states that this began Monday evening and has progressively worsened since onset. He denies any associated fever or chills. The symptoms started after injecting cocaine and heroin into his right hand. In the emergency department he was afebrile, with no leukocytosis. X-ray showed screw fixation of the scaphoid bone with question of partial nonunion of the fracture and lucency surrounding the proximal portion of the screw questionable for loosening. He was treated with broad-spectrum antibiotics for cellulitis in the setting of IV drug use. He will be admitted for further management of right hand cellulitis. Review of Systems Review of Systems: Yes all other systems are reviewed and are negative Constitutional: Constitutional: Denies chills and Denies fever(s) [facility] Medical History COVID-19 vaccine series completed IV drug abuse Alcohol abuse Surgical History Hx of tooth extraction History of tonsillectomy Social History Household Members Other:: mother Are you a primary home care and home health aides teacher to a significant other at home: No Do you presently have visiting nurse or other home services: No Alcohol intake: current Alcohol intake frequency: 3 or more drinks per day Alcohol type: hard liquor Patient Tobacco Use Status: Never used Tobacco Tobacco use type: Cigarette Cigarettes Per Day: 10 Years Smoked: 13 Substance Use Type: Heroin Advance Directives: No Meds Allergies Allergy/AdvReac Type Severity Reaction Status Date / Time No Known Allergies Allergy Verified 07/21/23 10:26 [No Known Allergies*] Active Medications: Current Medications Pharmacy Consult (Consult Rx Etoh Phenob Im/Po) 1 each MISCELLANE ONCE PRN; Protocol PRN Reason: Consult order Home Medications ?Medication ?Instructions ?Recorded ?Confirmed ?Last Taken ?Type clonidine HCl 0.1 mg tablet 0.1 mg PO TID 06/07/22 07/21/23 07/21/23 History hydroxyzine HCl 50 mg tablet 50 mg PO BID anxiety 06/07/22 07/21/23 07/21/23 History omeprazole 20 mg tablet,delayed 20 mg PO DAILY PRN Heartburn 06/07/22 07/21/23 Unknown History release prazosin 1 mg capsule 1 mg PO BEDTIME 06/07/22 07/21/23 Unknown History mirtazapine 45 mg tablet 45 mg PO BEDTIME 07/21/23 07/21/23 Unknown History Physical Exam Vital Signs and Narrative: Vital Signs: Last Vital Signs Temp 98.3 F 07/21/23 14:00 Pulse 67 07/21/23 14:00 Resp 18 07/21/23 10:24 BP 110/72 07/21/23 14:00 Pulse Ox 95 07/21/23 14:00 O2 Del Method Room Air 07/21/23 14:00 BMI result Body Mass Index 27.2 Const: General: comfortable, alert and awake Nutritional Appearance: average body habitus Orientation/consciousness: patient oriented x3 Resp: Effort & Inspection: normal respiratory effort, able to speak in complete sentences, no respiratory distress and no use of accessory muscles Cardio: Rate: regular rate GI: Inspection: No distended Palpation (GI): Soft to palpation Skin: Other: Right hand/forearm, swelling, tender, with erythema, track arias. No area of fluctuance to suggest abscess. Decreased range of motion at wrist. Able to extend fingers, unable to flex fully Neuro: General: patient oriented x3 Extrem: General: Yes no pedal edema Results Labs 07/21/23 13:42 07/21/23 13:42 Labs: Laboratory Results - last 24 hr 07/21/23 13:42 MCV 85.4 MCH 28.4 MCHC 33.3 RDW 12.7 Plt Count 145 L D MPV 10.7 Immature Gran % (Auto) 0.3 Neut % (Auto) 53.7 Lymph % (Auto) 32.6 [place] % (Auto) 11.6 H Eos % (Auto) 1.3 Baso % (Auto) 0.5 Lymph # (Auto) 2.0 [place] # (Auto) 0.7 Eos # (Auto) 0.1 Baso # (Auto) 0.0 Abs Immat Gran (auto) 0.02 Absolute Neuts (auto) 3.2 Absolute Nucleated RBC 0.000 Nucleated RBC % (auto) 0.0 Smear Tech's Comments VERIFIED ESR 14 Anion Gap 11 L Estim Creat Clear Calc 166.9 Estimated GFR > 60 Random Glucose 88 Lactic Acid 0.9 Calcium 9.9 Magnesium 1.8 Total Bilirubin 0.5 AST 57 H ALT 86 H Alkaline Phosphatase 78 C-Reactive Protein 7.29 H Total Protein 7.3 Albumin 4.2 Lipase 15 Imaging Radiologist's Impressions: Impressions Wrist X-Ray 07/21/23 10:43 IMPRESSION: No acute fracture or dislocation. Screw fixation of the scaphoid bone with question of partial nonunion of the fracture and lucency surrounding the proximal portion of the screw questionable for loosening.. Assessment and Plan (1) Cellulitis of hand, right: Status: Acute Plan This is a 32-year-old male with history of alcohol abuse, polysubstance abuse who presents to the emergency department with 2 day history of increasing redness, pain, swelling of his right hand in the setting of injecting IV drugs Right hand/arm cellulitis Related to underlying IVDU No evidence of sepsis Orthopedic consult given decreased range of motion and previous surgery with hardware in place IV vancomycin, Zosyn Blood cultures pending Symptomatic support for pain Alcohol dependence with high risk for withdrawal Phenobarbital protocol started in the emergency department supplementation with thiamine, folic acid Addiction medicine consultation Polysubstance use Addiction medicine consultation as above will screen for hepatitis, HIV Tobacco dependence smoking cessation advised NRT Anxiety, depression, PTSD Continue baseline medications Thrombocytopenia Possibly due to underlying alcohol use versus acute infection Follow CBC Elevated LFTs Appears chronic May be due to chronic alcohol use Screening for hepatitis as above DVT prophylaxis Lovenox Code status-full code Patient requires 2 midnight stay in the hospital for management of cellulitis involving the right hand and forearm requiring IV antibiotics and specialist consultation Quality Stroke Does the patient have a stroke diagnosis?: No VTE Prior VTE?: No VTE Risk Level:: Medical - moderate - high VTE Device Contraindication: N/A - Device Ordered VTE Drug Contraindication: N/A - Med Ordered
[2023-07-21] MEDS: vancomycin/NS 2,000 MG/500 ML PLAST..BAG 250 MG IV (14:55)
--- NOTE | 2023-07-21 15:09 | PHA.MEDREC ---
Pharmacy Consult ? Medication Reconciliation Pharmacy has completed the medication reconciliation. spoke with patient to confirm medications, he was a good historian and knew all of his medications. Took clonidine and hydroxyzine morning doses today.
--- NOTE | 2023-07-21 15:10 | P.CONOP_ITS ---
History of Present Illness HPI Consult date: 07/21/23 Chief complaint: left hand cellulitis, IVDU Narrative: Mr. Rascon is a 32 yo male who is [id number]. He has a past medical history significant for IV drug use, ETOH abuse presents to the ED today for evaluation of right hand/wrist pain/swelling x24 hours. Admits pain is worsening and has noticed redness to his hand that is now extending up his right arm. He reports decreased range of motion of the wrist. He does admit to injecting fentanyl and cocaine into the right hand 2 days ago. He was admitted to the medicine service for IV abx. Orthopedics was consulted after x-rays were obtained and the paient was found to have orthopedic hardware in the scaphoid. He reports this was done roughly 4-5 years ago in [place]. There is evidence of hardware loosening but the patient reports that he has not had any pain in the area since surgery and hispain is located from the proximal forearm distally currently. Review of Systems 2 Review of Systems: Yes all other systems are reviewed and are negative [facility] Past Medical History Medical History COVID-19 vaccine series completed IV drug abuse Alcohol abuse Surgical History Surgical History Hx of tooth extraction History of tonsillectomy Social History Social History Household Members Other:: mother Are you a primary managed care provider to a significant other at home: No Do you presently have visiting nurse or other home services: No Alcohol intake: current Alcohol intake frequency: 3 or more drinks per day Alcohol type: hard liquor Patient Tobacco Use Status: Never used Tobacco Tobacco use type: Cigarette Cigarettes Per Day: 10 Years Smoked: 13 Substance Use Type: Heroin Advance Directives: No Meds Allergies Allergy/AdvReac Type Severity Reaction Status Date / Time No Known Allergies Allergy Verified 07/21/23 10:26 [No Known Allergies*] Active Medications: Current Medications Acetaminophen (Acetaminophen 325 Mg Tablet) 650 mg PO Q6H PRN PRN Reason: Pain, Mild (Pain Scale 1-3) Docusate Sodium (Docusate Sodium 100 Mg Capsule) 100 mg PO BID [facility] Enoxaparin Sodium (Enoxaparin Sodium 40 Mg/0.4 Ml Syringe) 40 mg SUBCUT Q24H [facility] Piperacillin Sod/Tazobactam (Sod 3.375 gm/ Sodium Chloride) 50 mls @ 100 mls/hr IV Q6H [facility] Melatonin (Melatonin 3 Mg Tablet) 6 mg PO BEDTIME PRN PRN Reason: Insomnia Morphine Sulfate (Morphine Sulfate 4 Mg/Ml Cartridge) 2 mg IVPUSH Q3H PRN; Protocol PRN Reason: Pain, Severe (Pain Scale 7-10) Oxycodone HCl (Oxycodone Hcl Immed Release 5 Mg Tablet) 5 mg PO Q6H PRN PRN Reason: Pain, Moderate(Pain Scale 4-6) Pharmacy Consult (Consult Rx Etoh Phenob Im/Po) 1 each MISCELLANE ONCE PRN; Protocol PRN Reason: Consult order Pharmacy Consult (Consult Rx Vancomycin Dosing) 1 each MISCELLANE DAILY PRN PRN Reason: Consult order Phenobarbital (Phenobarbital 30 Mg Tablet) 60 mg PO BID [facility]; Protocol Stop: 07/23/23 21:01 Phenobarbital (Phenobarbital 30 Mg Tablet) 30 mg PO BID [facility]; Protocol Stop: 07/25/23 21:01 Phenobarbital (Phenobarbital 30 Mg Tablet) 30 mg PO DAILY [facility]; Protocol Stop: 07/27/23 09:01 Phenobarbital Sodium (Phenobarbital Sodium 130 Mg/Ml Vial Im Q3hx2) 255 mg IM Q3H [facility]; Protocol Stop: 07/21/23 21:01 Senna (Sennosides 8.6 Mg Tablet) 17.2 mg PO BEDTIME PRN PRN Reason: Constipation Sodium Chloride (0.9 % Sodium Chloride Flush 3 Ml Syringe) 3 ml IVFLUSH QSHIFT [facility] Home Medications ?Medication ?Instructions ?Recorded ?Confirmed ?Last Taken ?Type clonidine HCl 0.1 mg tablet 0.1 mg PO TID 06/07/22 07/21/23 07/21/23 History hydroxyzine HCl 50 mg tablet 50 mg PO BID anxiety 06/07/22 07/21/23 07/21/23 History omeprazole 20 mg tablet,delayed 20 mg PO DAILY PRN Heartburn 06/07/22 07/21/23 Unknown History release prazosin 1 mg capsule 1 mg PO BEDTIME 06/07/22 07/21/23 Unknown History mirtazapine 45 mg tablet 45 mg PO BEDTIME 07/21/23 07/21/23 Unknown History Physical Exam 2 Vital Signs: Vital Signs: Last Vital Signs Temp 98.3 F 07/21/23 14:00 Pulse 67 07/21/23 14:00 Resp 18 07/21/23 10:24 BP 110/72 07/21/23 14:00 Pulse Ox 95 07/21/23 14:00 O2 Del Method Room Air 07/21/23 14:00 BMI result Body Mass Index 27.2 Const: General: cooperative, healthy appearing and no acute distress Resp: Effort & Inspection: normal respiratory effort and able to speak in complete sentences Cardio: Rate: regular rate Peripheral pulses: Peripheral pulses 2+ throughout GI: Palpation (GI): Soft to palpation Skin: Lesions: no lesions Rashes: no rashes Extrem: Other: Right upper extremity has visible arias from IVDA. There is diffuse erythema and extreme tenderness to palpation over these areas. Able to flex and extend all digits. He is lacking about 4cm from making a closed fist. No tenderness over the flexor tendons. No areas of fluctuation or abscess formation. Sensation intact. Capillary refill is brisk. Results Labs 07/21/23 13:42 07/21/23 13:42 Labs: Abnormal lab results 07/21/23 Range/Units 13:42 Hgb 13.8 L (14.0-18.0) g/dl Hct 41.5 L (42.0-52.0) % Plt Count 145 L D (160-400) X10*3/uL [place] % (Auto) 11.6 H (2-11) % Carbon Dioxide 31 H (22-29) mmol/L Anion Gap 11 L (12-20) AST 57 H (5-37) U/L ALT 86 H (0-40) U/L C-Reactive Protein 7.29 H (< or = 0.50) mg/dL H & H 07/21/23 Range/Units 13:42 Hgb 13.8 L (14.0-18.0) g/dl Hct 41.5 L (42.0-52.0) % All other labs normal. Assessment and Plan (1) IV drug abuse: Status: Acute (2) Cellulitis of hand, right: Status: Acute X-rays obtained in the ED reveal no acute fracture or dislocation. There is scaphoid orthopedic hardware lucency suspicious for loosening. However, patient reports no pain prior to this admission and his current pain is diffuse. No evidence of flexor tenosynovitis Continue IV abx, it is unclear how long the patient is willing to stay for treatment No evidence of abscess formation at this time No acute orthopedic intervention is needed at this time Procedures Date of Service Date of Service: 07/21/23
[2023-07-21] MEDS: PHENobarbitaL sodium 130 MG/ML IM ONCE 345 MG IM (15:31)
[2023-07-21 16:00] VITALS: BP 120/65; PULSE 58; TEMP 36.3; O2SAT 96
[2023-07-21] MEDS: Morphine Sulfate 4 MG/ML CARTRIDGE 2 MG IVPUSH (16:18)
--- NOTE | 2023-07-21 16:56 | PHA.PROG ---
Admission Date/Time: July 21, 2023 14:42 Indication: skin Weight in k kg Adjusted body weight in K.2 kg Serum Creatinine - Last 168 Hours 07/21/23 13:42 Creatinine 0.65 Estimated CrCl and GFR - Last 168 Hours 07/21/23 13:42 Estim Creat Clear Calc 166.9 Estimated GFR > 60 Vancomycin Loading Dose: 2,000 mg Current Vancomycin Dosing Regimen: 1,250 mg Q12H Vancomycin Monitoring using AUC goal of 400 - 600 range with trough as surrogate marker: 463 mg/L and predicted trough 13.6 mg/L Date and Time for next Vancomycin Level to be drawn: 07/22 @ 1300 Pharmacist Comments on Vancomycin Plan: Vancomycin dosing will take advantage of [employer] as a clinical decision support tool that uses Bayesian modeling to calculate individual patient's pharmacokinetic parameters and forecast the patient's drug concentration time course with the target goal AUC 24 range of 400 - 600 mg/L/hr.
[2023-07-21] MEDS: cloNIDine HCL 0.1 MG TABLET PO (18:53)
[2023-07-21] MEDS: oxyCODONE HCl Immed Release 5 MG TABLET PO (18:54)
[2023-07-21] MEDS: Acetaminophen 325 MG TABLET 650 MG PO (18:54)
[2023-07-21] MEDS: PHENobarbitaL sodium 130 MG/ML VIAL IM Q3Hx2 215 MG IM ×2 (18:56→20:49)
[2023-07-21] MEDS: Nicotine 21 MG PATCH.TD24 TRANSDERMA (19:01)
[2023-07-21 20:00] VITALS: BP 100/64; PULSE 59; TEMP 36.3; O2SAT 96
[2023-07-21] MEDS: hydrOXYzine HCL 50 MG TABLET PO (20:48)
[2023-07-21] MEDS: Mirtazapine 15 MG TABLET 45 MG PO (20:48)
[2023-07-21] MEDS: Docusate Sodium 100 MG CAPSULE PO (20:49)
[2023-07-21] MEDS: Prazosin HCL 1 MG CAPSULE PO (20:49)
[2023-07-21 20:54] LABS: Amphetamine Screen Urine Not Detected (Not Detect); Barbiturates, Urine Not Detected (Not Detect); Benzodiazepines Screen Urine POSITIVE (Not Detect); Buprenorphine Scr Not Detected (Not Detect); Cannabinoid Screen Urine POSITIVE (Not Detect); Cocaine Screen Urine POSITIVE (Not Detect); Methadone Screen, Urine Positive (Not Detect); Opiate Screen Urine POSITIVE (Not Detect); Oxycodone Screen Urine Not Detected (Not Detect); Phencyclidine Screen Urine Not Detected (Not Detect)
[2023-07-21 21:04] LABS: Fentanyl, urine POSITIVE (Not Detect)
[2023-07-21 22:12] VITALS: BP 118/69; PULSE 59; TEMP 36.2; O2SAT 92
[2023-07-22] VITALS (14 sets, daily range): BP systolic 108–131; BP diastolic 54–82; PULSE 56–70; RESP 16–20; TEMP 35.9–36.9; O2SAT 94–98; BMI 28.4
[2023-07-22] MEDS: Piperacillin Sodium/Tazobactam 3.375 GM in 0.9 % Sodium Chloride 50 ML IV ×4 (02:29→19:56)
[2023-07-22] MEDS: 0.9 % Sodium Chloride Flush 3 ML SYRINGE IVFLUSH ×3 (02:30→15:50)
[2023-07-22] MEDS: vancomycin HCL 1,250 MG in 0.9 % Sodium Chloride 250 ML 166.67 MG IV ×2 (03:09→15:41)
--- NOTE | 2023-07-22 03:21 | PC.NURSE ---
pt is sleeping at this time, no sign of distress.
[2023-07-22 03:40] LABS: HBc Num1 0.17 S/CO (0.00-0.79); HBsAGNum1 0.29 S/CO (0.00-0.99); HIV Num 1 10.97 S/CO (0.00-0.99); Hepatitis B Core Antibody Nonreactive (Nonreactive); Hepatitis B Surface Antigen Negative (Negative); ~Hepatitis B Surface Antibody REACTIVE (Nonreactive); ~Hepatitis C Antibody Reactive (Nonreactive)
[2023-07-22 04:59] LABS: HIV AB/AG Nonreactive (Nonreactive); HIV Num 2 0.04 S/CO; HIV Num 3 0.05 S/CO
[2023-07-22] MEDS: Morphine Sulfate 4 MG/ML CARTRIDGE 2 MG IVPUSH ×5 (05:20→22:54)
[2023-07-22 06:30] LABS: Basophils Percent Auto 0.2 % (0-2); Eosinophils Absolute Auto 0.1 X10*3/uL (0.0-0.4); Eosinophils Percent Auto 1.1 % (0-4); Hematocrit 38.4 % (42.0-52.0); Hemoglobin 12.7 g/dl (14.0-18.0); Imm Gran Abs Auto 0.01 X10*3/uL (0.00-0.03); Imm Gran Pct Auto 0.2 % (0.0-0.4); Lymphocytes Percent Auto 41.5 % (20-40); MANUAL DIFF FLAG SCAN; Mean Corpuscular HGB Conc 33.1 g/dl (31.0-36.0); Mean Corpuscular Hemoglobin 28.3 pg (27.0-33.0); Mean Corpuscular Volume 85.7 fL (80.0-98.0); Mean Platelet Volume 11.5 fL (9.4-12.4); Monocytes Absolute Auto 0.4 X10*3/uL (0.1-1.2); Monocytes Percent Auto 8.3 % (2-11); Neutrophils Absolute Auto 2.3 x10*3/uL (2.0-8.3); Neutrophils Percent Auto 48.7 % (45-73); Platelet Count 115 X10*3/uL (160-400); Red Blood Count 4.48 X10*6/uL (4.60-5.80); Red Cell Distribution Width 12.5 % (11.0-16.0); SCAN SMEAR FLAG 1; White Blood Count 4.7 X10*3/uL (4.8-10.8)
[2023-07-22 06:48] LABS: Anion Gap 13 (12-20); Blood Urea Nitrogen 6 mg/dL (9-16); Calcium 9.3 mg/dL (8.4-10.2); Carbon Dioxide 24 mmol/L (22-29); Chloride 105 mmol/L (96-108); Creatinine Clr Calc Pharmacy 157.2; Estimated Glomerular Filt Rate > 60; Glucose Random 153 mg/dL (60-115); Potassium 3.5 mmol/L (3.3-5.1); Sodium 138 mmol/L (135-145)
[2023-07-22 07:22] LABS: SLIDE REVIEW VERIFIED
--- NOTE | 2023-07-22 07:28 | HE.PHANOTE ---
RE VANCO RENAL INDICES WNL, CONTINUE CURRENT DOSE. NEXT TROUGH SCHEDULED FOR 07/22 @1300 BLAKE
--- NOTE | 2023-07-22 09:25 | HO.PM.IMPN ---
Subjective Subjective Date of Service: 07/22/23 Interval History: seen and examined this AM reports on going hand pain reports minor improvement in his ROM Physical Exam Vital Signs: Vital Signs: Last Vital Signs Temp 98.5 F 07/22/23 06:34 Pulse 64 07/22/23 06:34 Resp 16 07/22/23 06:34 BP 108/54 L 07/22/23 06:34 Pulse Ox 95 07/22/23 06:34 O2 Del Method Room Air 07/22/23 06:34 BMI result Body Mass Index 28.4 Const: Other: General - no acute distress, appears comfortable Cardiovascular - regular rate and rhythm, S1-S2 Lungs - normal respiratory effort, clear to auscultation bilaterally, no wheezing Abdomen - soft, nontender, no rebound or guarding Extremities - R with tenderness and swelling, improving ROM at wrist and hand Neuro - awake and alert, no focal deficits Objective Data Active Medications Acetaminophen (Acetaminophen 325 Mg Tablet) 650 mg PO Q6H PRN PRN Reason: Pain, Mild (Pain Scale 1-3) Last Admin: 07/21/23 18:54 Dose: 650 mg Documented By: ZOË Clonidine HCl (Clonidine Hcl 0.1 Mg Tablet) 0.1 mg PO TID [facility]; Protocol Last Admin: 07/21/23 18:53 Dose: 0.1 mg Documented By: ZOË Docusate Sodium (Docusate Sodium 100 Mg Capsule) 100 mg PO BID [facility] Last Admin: 07/21/23 20:49 Dose: 100 mg Documented By: BREE Enoxaparin Sodium (Enoxaparin Sodium 40 Mg/0.4 Ml Syringe) 40 mg SUBCUT Q24H [facility] Last Admin: 07/21/23 15:12 Dose: Not Given Documented By: ZOË Non-Admin Reason: Patient Condition Contraindication Folic Acid (Folic Acid 1 Mg Tablet) 1 mg PO DAILY [facility] Hydroxyzine HCl (Hydroxyzine Hcl 50 Mg Tablet) 50 mg PO BID [facility] Last Admin: 07/21/23 20:48 Dose: 50 mg Documented By: BREE Piperacillin Sod/Tazobactam (Sod 3.375 gm/ Sodium Chloride) 50 mls @ 100 mls/hr IV Q6H [facility] Last Infusion: 07/22/23 03:10 Dose: Infused Documented By: RAMILA Vancomycin HCl 1,250 mg/ (Sodium Chloride) 250 mls @ 166.667 mls/hr IV Q12H [facility]IE Last Infusion: 07/22/23 05:20 Dose: Infused Documented By: SELENE Melatonin (Melatonin 3 Mg Tablet) 6 mg PO BEDTIME PRN PRN Reason: Insomnia Mirtazapine (Mirtazapine 15 Mg Tablet) 45 mg PO BEDTIME [facility] Last Admin: 07/21/23 20:48 Dose: 45 mg Documented By: BREE Morphine Sulfate (Morphine Sulfate 4 Mg/Ml Cartridge) 2 mg IVPUSH Q3H PRN; Protocol PRN Reason: Pain, Severe (Pain Scale 7-10) Last Admin: 07/22/23 05:20 Dose: 2 mg Documented By: SELENE Nicotine (Nicotine 21 Mg Patch.Td24) 21 mg TRANSDERMA DAILY [facility] Last Admin: 07/21/23 19:01 Dose: 21 mg Documented By: ZOË Omeprazole (Omeprazole 20 Mg Capsule.Dr) 20 mg PO DAILY PRN PRN Reason: Heartburn Oxycodone HCl (Oxycodone Hcl Immed Release 5 Mg Tablet) 5 mg PO Q6H PRN PRN Reason: Pain, Moderate(Pain Scale 4-6) Last Admin: 07/21/23 18:54 Dose: 5 mg Documented By: ZOË Pharmacy Consult (Consult Rx Etoh Phenob Im/Po) 1 each MISCELLANE ONCE PRN; Protocol PRN Reason: Consult order Pharmacy Consult (Consult Rx Vancomycin Dosing) 1 each MISCELLANE DAILY PRN PRN Reason: Consult order Phenobarbital (Phenobarbital 30 Mg Tablet) 60 mg PO BID [facility]; Protocol Stop: 07/23/23 21:01 Phenobarbital (Phenobarbital 30 Mg Tablet) 30 mg PO BID [facility]; Protocol Stop: 07/25/23 21:01 Phenobarbital (Phenobarbital 30 Mg Tablet) 30 mg PO DAILY [facility]; Protocol Stop: 07/27/23 09:01 Prazosin HCl (Prazosin Hcl 1 Mg Capsule) 1 mg PO BEDTIME [facility]; Protocol Last Admin: 07/21/23 20:49 Dose: 1 mg Documented By: BREE Senna (Sennosides 8.6 Mg Tablet) 17.2 mg PO BEDTIME PRN PRN Reason: Constipation Sodium Chloride (0.9 % Sodium Chloride Flush 3 Ml Syringe) 3 ml IVFLUSH QSHIFT [facility] Last Admin: 07/22/23 02:30 Dose: 3 ml Documented By: MAGGIE Thiamine HCl (Thiamine Hcl 100 Mg Tablet) 100 mg PO DAILY [facility] Labs 07/22/23 05:39 07/22/23 05:39 Labs: Laboratory Results - last 24 hr 07/21/23 07/21/23 07/21/23 13:42 17:35 20:13 MCV 85.4 MCH 28.4 MCHC 33.3 RDW 12.7 Plt Count 145 L D MPV 10.7 Immature Gran % (Auto) 0.3 Neut % (Auto) 53.7 Lymph % (Auto) 32.6 [place] % (Auto) 11.6 H Eos % (Auto) 1.3 Baso % (Auto) 0.5 Lymph # (Auto) 2.0 Richardson # (Auto) 0.7 Eos # (Auto) 0.1 Baso # (Auto) 0.0 Abs Immat Gran (auto) 0.02 Absolute Neuts (auto) 3.2 Absolute Nucleated RBC 0.000 Nucleated RBC % (auto) 0.0 Smear Tech's Comments VERIFIED ESR 14 Anion Gap 11 L Estim Creat Clear Calc 166.9 Estimated GFR > 60 Random Glucose 88 Lactic Acid 0.9 Calcium 9.9 Magnesium 1.8 Total Bilirubin 0.5 AST 57 H ALT 86 H Alkaline Phosphatase 78 C-Reactive Protein 7.29 H Total Protein 7.3 Albumin 4.2 Lipase 15 Urine Opiates Screen POSITIVE H Ur Buprenorphine Scrn Not Detected Ur Oxycodone Screen Not Detected Urine Methadone Screen Positive H Urine Fentanyl Screen POSITIVE H Ur Barbiturates Screen Not Detected Ur Phencyclidine Scrn Not Detected Ur Amphetamines Screen Not Detected U Benzodiazepines Scrn POSITIVE H Urine Cocaine Screen POSITIVE H U Marijuana (THC) Screen POSITIVE H Hep Bs Antigen Negative Hep Bs Antibody REACTIVE Hep B Core Total Ab Nonreactive Hepatitis C Ab (EIA) Reactive H HIV 1&2 Ab/P24 Ag 4thGn Nonreactive 07/22/23 05:39 MCV 85.7 MCH 28.3 MCHC 33.1 RDW 12.5 Plt Count 115 L MPV 11.5 Immature Gran % (Auto) 0.2 Neut % (Auto) 48.7 Lymph % (Auto) 41.5 H Richardson % (Auto) 8.3 Eos % (Auto) 1.1 Baso % (Auto) 0.2 Lymph # (Auto) 2.0 [place] # (Auto) 0.4 Eos # (Auto) 0.1 Baso # (Auto) 0.0 Abs Immat Gran (auto) 0.01 Absolute Neuts (auto) 2.3 Absolute Nucleated RBC 0.000 Nucleated RBC % (auto) 0.0 Smear Tech's Comments VERIFIED ESR Anion Gap 13 Estim Creat Clear Calc 157.2 Estimated GFR > 60 Random Glucose 153 H Lactic Acid Calcium 9.3 D Magnesium Total Bilirubin AST ALT Alkaline Phosphatase C-Reactive Protein Total Protein Albumin Lipase Urine Opiates Screen Ur Buprenorphine Scrn Ur Oxycodone Screen Urine Methadone Screen Urine Fentanyl Screen Ur Barbiturates Screen Ur Phencyclidine Scrn Ur Amphetamines Screen U Benzodiazepines Scrn Urine Cocaine Screen U Marijuana (THC) Screen Hep Bs Antigen Hep Bs Antibody Hep B Core Total Ab Hepatitis C Ab (EIA) HIV 1&2 Ab/P24 Ag 4thGn Assessment and Plan (1) Cellulitis of hand, right: Status: Acute (2) Alcohol withdrawal: Status: Acute Plan This is a 32-year-old male with history of alcohol abuse, polysubstance abuse who presents to the emergency department with 2 day history of increasing redness, pain, swelling of his right hand in the setting of injecting IV drugs Right hand/arm cellulitis Related to underlying IVDU No evidence of sepsis seen by ortho -- no indication for intervention IV vancomycin, Zosyn Blood cultures pending Symptomatic support for pain Alcohol dependence with high risk for withdrawal phenobarb per protocol supplementation with thiamine, folic acid Addiction medicine consultation Polysubstance use Addiction medicine consultation as above methadone once dose verified Tobacco dependence smoking cessation advised NRT Anxiety, depression, PTSD Continue baseline medications Thrombocytopenia Possibly due to underlying alcohol use versus acute infection Follow CBC Elevated LFTs hep C positive, will need outpatient f/u DVT prophylaxis Lovenox Code status-full code Quality Stroke Does the patient have a stroke diagnosis?: No VTE Prior VTE?: No VTE Risk Level:: Medical - moderate - high VTE Device Contraindication: N/A - Device Ordered VTE Drug Contraindication: N/A - Med Ordered
[2023-07-22] MEDS: PHENobarbitaL 30 MG TABLET 60 MG PO ×2 (09:48→20:35)
[2023-07-22] MEDS: Folic Acid 1 MG TABLET PO (09:49)
[2023-07-22] MEDS: cloNIDine HCL 0.1 MG TABLET PO ×3 (09:50→20:33)
[2023-07-22] MEDS: Docusate Sodium 100 MG CAPSULE PO ×2 (09:50→20:35)
[2023-07-22] MEDS: Thiamine HCL 100 MG TABLET PO (09:51)
[2023-07-22] MEDS: Nicotine 21 MG PATCH.TD24 TRANSDERMA (09:52)
[2023-07-22] MEDS: hydrOXYzine HCL 50 MG TABLET PO ×2 (09:52→20:35)
--- NOTE | 2023-07-22 11:01 | HE.PHANOTE ---
RE METHADONE PT GETTING 210 MG METHADONE FROM [facility] IN [place], LAST DOSE 07/21/23
[2023-07-22] MEDS: methADONE HCl 20 MG/2 ML ORAL.CONC 210 MG PO (12:04)
[2023-07-22] MEDS: Acetaminophen 325 MG TABLET 650 MG PO (12:05)
[2023-07-22] MEDS: Prazosin HCL 1 MG CAPSULE PO (20:34)
[2023-07-22] MEDS: Mirtazapine 15 MG TABLET 45 MG PO (20:34)
[2023-07-23] MEDS: oxyCODONE HCl Immed Release 5 MG TABLET PO ×2 (01:44→21:27)
[2023-07-23] MEDS: Piperacillin Sodium/Tazobactam 3.375 GM in 0.9 % Sodium Chloride 50 ML IV ×4 (01:44→22:20)
[2023-07-23] MEDS: vancomycin HCL 1,250 MG in 0.9 % Sodium Chloride 250 ML 166.67 MG IV (02:42)
[2023-07-23 02:47] VITALS: RESP 18
[2023-07-23] MEDS: Morphine Sulfate 4 MG/ML CARTRIDGE 2 MG IVPUSH ×5 (02:47→22:20)
[2023-07-23 03:31] VITALS: BP 116/75; PULSE 60; RESP 18; TEMP 36.6; O2SAT 96
[2023-07-23 07:19] VITALS: BP 118/71; PULSE 60; RESP 16; TEMP 36.4; O2SAT 96
[2023-07-23 07:42] LABS: Hemoglobin 13.9 g/dl (14.0-18.0); Mean Corpuscular HGB Conc 33.9 g/dl (31.0-36.0); Mean Corpuscular Hemoglobin 28.7 pg (27.0-33.0); Mean Corpuscular Volume 84.7 fL (80.0-98.0); Mean Platelet Volume 11.1 fL (9.4-12.4); Platelet Count 143 X10*3/uL (160-400); Red Blood Count 4.84 X10*6/uL (4.60-5.80); Red Cell Distribution Width 12.3 % (11.0-16.0); White Blood Count 5.9 X10*3/uL (4.8-10.8)
[2023-07-23] MEDS: 0.9 % Sodium Chloride Flush 3 ML SYRINGE IVFLUSH ×2 (07:51→15:48)
[2023-07-23] MEDS: PHENobarbitaL 30 MG TABLET 60 MG PO ×2 (07:52→20:07)
[2023-07-23] MEDS: cloNIDine HCL 0.1 MG TABLET PO ×3 (07:53→20:08)
[2023-07-23] MEDS: hydrOXYzine HCL 50 MG TABLET PO ×2 (07:53→20:08)
[2023-07-23] MEDS: Docusate Sodium 100 MG CAPSULE PO ×2 (07:54→20:08)
[2023-07-23 08:01] LABS: Anion Gap 10 (12-20); Blood Urea Nitrogen 6 mg/dL (9-16); Calcium 9.6 mg/dL (8.4-10.2); Carbon Dioxide 26 mmol/L (22-29); Chloride 104 mmol/L (96-108); Creatinine Clr Calc Pharmacy 182.2; Estimated Glomerular Filt Rate > 60; Glucose Random 113 mg/dL (60-115); Potassium 3.9 mmol/L (3.3-5.1); Sodium 136 mmol/L (135-145)
[2023-07-23] MEDS: Folic Acid 1 MG TABLET PO (08:39)
[2023-07-23] MEDS: Thiamine HCL 100 MG TABLET PO (08:39)
[2023-07-23] MEDS: methADONE HCl 20 MG/2 ML ORAL.CONC 210 MG PO (08:39)
[2023-07-23 10:31] VITALS: BP 110/58; PULSE 57; RESP 17; TEMP 36.3; O2SAT 94
--- NOTE | 2023-07-23 11:38 | MHC.CM.PN ---
PT REPORTS HE LIVES WITH HIS MOTHER AND IS INDEPENDENT WITH CARE HE HAS NO DME AND NO SERVICES PT DECLINES TO COMPLETE A HCP PCP: BOB SUAREZ DCP: HOME NO SERVICES VS HOME WITH SERVICE SECRETARY INTERVENTION/RESOURCES MOTHER WILL TRANSPORT
--- NOTE | 2023-07-23 11:51 | HO.PM.IMPN ---
Subjective Subjective Date of Service: 07/23/23 Interval History: seen and examined this AM improving hand ROM and pain Review of Systems Negative except HPI/interval history. Physical Exam Vital Signs: Vital Signs: Last Vital Signs Temp 97.3 F 07/23/23 10:31 Pulse 57 07/23/23 10:31 Resp 17 07/23/23 10:31 BP 110/58 L 07/23/23 10:31 Pulse Ox 94 07/23/23 10:31 O2 Del Method Room Air 07/23/23 10:31 BMI result Body Mass Index 28.4 Const: Other: General - no acute distress, appears comfortable Cardiovascular - regular rate and rhythm, S1-S2 Lungs - normal respiratory effort, clear to auscultation bilaterally, no wheezing Abdomen - soft, nontender, no rebound or guarding Extremities - R with tenderness and swelling, improving ROM at wrist and hand, nearly able to make a fist Neuro - awake and alert, no focal deficits Objective Data Active Medications Acetaminophen (Acetaminophen 325 Mg Tablet) 650 mg PO Q6H PRN PRN Reason: Pain, Mild (Pain Scale 1-3) Last Admin: 07/22/23 12:05 Dose: 650 mg Documented By: JAYLIN Clonidine HCl (Clonidine Hcl 0.1 Mg Tablet) 0.1 mg PO TID [facility]; Protocol Last Admin: 07/23/23 07:53 Dose: 0.1 mg Documented By: JAYLIN Docusate Sodium (Docusate Sodium 100 Mg Capsule) 100 mg PO BID [facility] Last Admin: 07/23/23 07:54 Dose: 100 mg Documented By: JAYLIN Enoxaparin Sodium (Enoxaparin Sodium 40 Mg/0.4 Ml Syringe) 40 mg SUBCUT Q24H [facility] Last Admin: 07/22/23 14:47 Dose: Not Given Documented By: JAYLIN Non-Admin Reason: Patient Refused Folic Acid (Folic Acid 1 Mg Tablet) 1 mg PO DAILY [facility] Last Admin: 07/23/23 08:39 Dose: 1 mg Documented By: JAYLIN Hydroxyzine HCl (Hydroxyzine Hcl 50 Mg Tablet) 50 mg PO BID [facility] Last Admin: 07/23/23 07:53 Dose: 50 mg Documented By: JAYLIN Piperacillin Sod/Tazobactam (Sod 3.375 gm/ Sodium Chloride) 50 mls @ 100 mls/hr IV Q6H [facility] Last Infusion: 07/23/23 08:39 Dose: Infused Documented By: JAYLIN Vancomycin HCl 1,250 mg/ (Sodium Chloride) 250 mls @ 166.667 mls/hr IV Q12H [facility] Last Infusion: 07/23/23 04:38 Dose: Infused Documented By: YING Melatonin (Melatonin 3 Mg Tablet) 6 mg PO BEDTIME PRN PRN Reason: Insomnia Methadone HCl (Methadone Hcl 20 Mg/2 Ml Oral.Conc) 210 mg PO DAILY [facility] Last Admin: 07/23/23 08:39 Dose: 210 mg Documented By: JAYLIN Mirtazapine (Mirtazapine 15 Mg Tablet) 45 mg PO BEDTIME [facility] Last Admin: 07/22/23 20:34 Dose: 45 mg Documented By: YING Morphine Sulfate (Morphine Sulfate 4 Mg/Ml Cartridge) 2 mg IVPUSH Q3H PRN; Protocol PRN Reason: Pain, Severe (Pain Scale 7-10) Last Admin: 07/23/23 02:47 Dose: 2 mg Documented By: YING Nicotine (Nicotine 21 Mg Patch.Td24) 21 mg TRANSDERMA DAILY [facility] Last Admin: 07/22/23 09:52 Dose: 21 mg Documented By: JAYLIN Omeprazole (Omeprazole 20 Mg Capsule.Dr) 20 mg PO DAILY PRN PRN Reason: Heartburn Oxycodone HCl (Oxycodone Hcl Immed Release 5 Mg Tablet) 5 mg PO Q6H PRN PRN Reason: Pain, Moderate(Pain Scale 4-6) Last Admin: 07/23/23 01:44 Dose: 5 mg Documented By: YING Pharmacy Consult (Consult Rx Etoh Phenob Im/Po) 1 each MISCELLANE ONCE PRN; Protocol PRN Reason: Consult order Pharmacy Consult (Consult Rx Vancomycin Dosing) 1 each MISCELLANE DAILY PRN PRN Reason: Consult order Phenobarbital (Phenobarbital 30 Mg Tablet) 60 mg PO BID [facility]; Protocol Stop: 07/23/23 21:01 Last Admin: 07/23/23 07:52 Dose: 60 mg Documented By: JAYLIN Phenobarbital (Phenobarbital 30 Mg Tablet) 30 mg PO BID [facility]; Protocol Stop: 07/25/23 21:01 Phenobarbital (Phenobarbital 30 Mg Tablet) 30 mg PO DAILY [facility]; Protocol Stop: 07/27/23 09:01 Prazosin HCl (Prazosin Hcl 1 Mg Capsule) 1 mg PO BEDTIME [facility]; Protocol Last Admin: 07/22/23 20:34 Dose: 1 mg Documented By: YING Senna (Sennosides 8.6 Mg Tablet) 17.2 mg PO BEDTIME PRN PRN Reason: Constipation Sodium Chloride (0.9 % Sodium Chloride Flush 3 Ml Syringe) 3 ml IVFLUSH QSHIFT [facility] Last Admin: 07/23/23 07:51 Dose: 3 ml Documented By: JAYLIN Thiamine HCl (Thiamine Hcl 100 Mg Tablet) 100 mg PO DAILY [facility] Last Admin: 07/23/23 08:39 Dose: 100 mg Documented By: JAYLIN Labs 07/23/23 07:29 07/23/23 07:29 Labs: Laboratory Results - last 24 hr 07/23/23 07:29 MCV 84.7 MCH 28.7 MCHC 33.9 RDW 12.3 Plt Count 143 L MPV 11.1 Absolute Nucleated RBC 0.000 Nucleated RBC % (auto) 0.0 Anion Gap 10 L Estim Creat Clear Calc 182.2 Estimated GFR > 60 Random Glucose 113 Calcium 9.6 Microbiology Microbiology Results: Microbiology 07/21/23 13:44 Blood Culture - Preliminary Blood - Venous No growth after 24 hours. 07/21/23 13:42 Blood Culture - Preliminary Blood - Venous No growth after 24 hours. Assessment and Plan (1) Cellulitis of hand, right: Status: Acute Plan This is a 32-year-old male with history of alcohol abuse, polysubstance abuse who presents to the emergency department with 2 day history of increasing redness, pain, swelling of his right hand in the setting of injecting IV drugs Right hand/arm cellulitis Related to underlying IVDU No evidence of sepsis seen by ortho -- no indication for intervention IV vancomycin, Zosyn continues to improve, will continue abx x 24 more hours and have ortho see him tomorrow to ensure no surgical intervention needed Alcohol dependence with high risk for withdrawal phenobarb per protocol supplementation with thiamine, folic acid Addiction medicine consultation Polysubstance use methadone Tobacco dependence smoking cessation advised NRT Anxiety, depression, PTSD Continue baseline medications Thrombocytopenia Possibly due to underlying alcohol use versus acute infection Follow CBC Elevated LFTs hep C positive, will need outpatient f/u DVT prophylaxis Lovenox Code status-full code Continued reason for hospitalization: Patient with hand infection, at risk for limb loss; has improved, however sub optimally for conversion to oral medications, therefore, will need at least 24 more hours of IV treatment. Quality Stroke Does the patient have a stroke diagnosis?: No VTE Prior VTE?: No VTE Risk Level:: Medical - moderate - high VTE Device Contraindication: N/A - Device Ordered VTE Drug Contraindication: N/A - Med Ordered
[2023-07-23] MEDS: Nicotine 21 MG PATCH.TD24 TRANSDERMA (11:57)
[2023-07-23] MEDS: Acetaminophen 325 MG TABLET 650 MG PO (12:06)
[2023-07-23 13:58] LABS: Vancomycin Random 6.7 mcg/mL (15-20)
[2023-07-23 15:36] VITALS: BP 132/81; PULSE 63; RESP 18; TEMP 36; O2SAT 98
[2023-07-23] MEDS: vancomycin HCL 1,500 MG in 0.9 % Sodium Chloride 500 ML 333.33 MG IV (15:46)
[2023-07-23 19:45] VITALS: BP 132/83; PULSE 70; RESP 18; TEMP 37.3; O2SAT 100
[2023-07-23] MEDS: Mirtazapine 15 MG TABLET 45 MG PO (20:07)
[2023-07-23] MEDS: Prazosin HCL 1 MG CAPSULE PO (20:08)
[2023-07-24] VITALS: BP 112/70; PULSE 99; RESP 19; TEMP 36.6; O2SAT 96
[2023-07-24] MEDS: Morphine Sulfate 4 MG/ML CARTRIDGE 2 MG IVPUSH ×3 (02:35→11:25)
[2023-07-24] MEDS: Piperacillin Sodium/Tazobactam 3.375 GM in 0.9 % Sodium Chloride 50 ML IV ×2 (03:23→08:02)
[2023-07-24 04:00] VITALS: BP 120/75; PULSE 67; RESP 19; TEMP 36.4; O2SAT 100
[2023-07-24] MEDS: vancomycin HCL 1,500 MG in 0.9 % Sodium Chloride 500 ML 333.3 MG IV (04:24)
[2023-07-24] MEDS: oxyCODONE HCl Immed Release 5 MG TABLET PO (04:24)
[2023-07-24 07:29] LABS: Creatinine Clr Calc Pharmacy 162.2; Estimated Glomerular Filt Rate > 60
[2023-07-24 08:00] VITALS: BP 158/88; PULSE 74; RESP 20; TEMP 36.4; O2SAT 99
[2023-07-24] MEDS: 0.9 % Sodium Chloride Flush 3 ML SYRINGE IVFLUSH (08:01)
[2023-07-24] MEDS: Folic Acid 1 MG TABLET PO (08:03)
[2023-07-24] MEDS: hydrOXYzine HCL 50 MG TABLET PO (08:03)
[2023-07-24] MEDS: Thiamine HCL 100 MG TABLET PO (08:03)
[2023-07-24] MEDS: cloNIDine HCL 0.1 MG TABLET PO ×2 (08:03→12:42)
[2023-07-24] MEDS: PHENobarbitaL 30 MG TABLET PO (08:04)
[2023-07-24] MEDS: methADONE HCl 20 MG/2 ML ORAL.CONC 210 MG PO (08:05)
[2023-07-24] MEDS: Nicotine 21 MG PATCH.TD24 TRANSDERMA (08:06)
--- NOTE | 2023-07-24 10:14 | HO.ADDICTCON ---
History of Present Illness Date of Service: 07/24/2023 Chief Complaint: left hand cellulitis, IVDU Reason for Consult: ETOH and JACQUELYN Sources of Information: patient interviewed and chart reviewed HPI Narrative: Patient is a 32 year old male medically admitted with cellulitis of the hand and alcohol withdrawal. Seen in room 450. He was laying bed, awake, appropriate, however minimally responsive to interview. He is engaged in treatment for OUD -methadone 210mg QD Discussed IVDU, patient reports that he has new needles and other injection supplies. Discussed importance of cleaning the area before injecting. Patient states he was drinking alot that evening and doesn't remember if he cleaned the area before injecting or not. Attempted to discuss alcohol use, patient verbalized that he was not interested in this and that he is connected to services. Review of Systems Constitutional: Reports as per HPI and Reports no additional constitutional complaints Diagnostics Vital Signs (24Hr): Vital Signs - 24 hr 07/23/23 10:31 07/23/23 15:36 07/23/23 19:45 Temperature 97.3 F 96.8 F 99.1 F Pulse Rate 57 63 70 Respiratory Rate 17 18 18 Blood Pressure 110/58 L 132/81 132/83 Pulse Oximetry 94 98 100 Oxygen Delivery Method Room Air Room Air Room Air 07/24/23 00:00 07/24/23 04:00 07/24/23 08:00 Temperature 98 F 97.6 F 97.6 F Pulse Rate 99 67 74 Respiratory Rate 19 19 20 Blood Pressure 112/70 120/75 158/88 H Pulse Oximetry 96 100 99 Oxygen Delivery Method Room Air Room Air Room Air BMI result Body Mass Index 28.4 Labs 07/23/23 07:29 07/24/23 06:35 Labs: Laboratory Results - last 48 hr 07/23/23 07/23/23 07/24/23 07:29 13:12 06:35 WBC 5.9 RBC 4.84 Hgb 13.9 L Hct 41.0 L MCV 84.7 MCH 28.7 MCHC 33.9 RDW 12.3 Plt Count 143 L MPV 11.1 Absolute Nucleated RBC 0.000 Nucleated RBC % (auto) 0.0 Sodium 136 Potassium 3.9 Chloride 104 Carbon Dioxide 26 Anion Gap 10 L BUN 6 L Creatinine 0.65 0.73 Estim Creat Clear Calc 182.2 162.2 Estimated GFR > 60 > 60 Random Glucose 113 Calcium 9.6 Random Vancomycin 6.7 L Imaging Radiology Impressions: ITS Impressions Wrist X-Ray 07/21/23 10:43 IMPRESSION: No acute fracture or dislocation. Screw fixation of the scaphoid bone with question of partial nonunion of the fracture and lucency surrounding the proximal portion of the screw questionable for loosening.. Mental Status Exam Mental Status Exam Patient Appearance: Appropriate Level of Consciousness: Awake and Appropriate Patient Behavior: Appropriate and Guarded Mood Description: Constricted Affect Description: Constricted Medications Medications Current Medications Acetaminophen (Acetaminophen 325 Mg Tablet) 650 mg PO Q6H PRN PRN Reason: Pain, Mild (Pain Scale 1-3) Last Admin: 07/23/23 12:06 Dose: 650 mg Clonidine HCl (Clonidine Hcl 0.1 Mg Tablet) 0.1 mg PO TID [facility]; Protocol Last Admin: 07/24/23 08:03 Dose: 0.1 mg Docusate Sodium (Docusate Sodium 100 Mg Capsule) 100 mg PO BID [facility] Last Admin: 07/24/23 08:22 Dose: Not Given Enoxaparin Sodium (Enoxaparin Sodium 40 Mg/0.4 Ml Syringe) 40 mg SUBCUT Q24H [facility] Last Admin: 07/23/23 14:51 Dose: Not Given Folic Acid (Folic Acid 1 Mg Tablet) 1 mg PO DAILY [facility] Last Admin: 07/24/23 08:03 Dose: 1 mg Hydroxyzine HCl (Hydroxyzine Hcl 50 Mg Tablet) 50 mg PO BID [facility] Last Admin: 07/24/23 08:03 Dose: 50 mg Piperacillin Sod/Tazobactam (Sod 3.375 gm/ Sodium Chloride) 50 mls @ 100 mls/hr IV Q6H [facility] Last Admin: 07/24/23 08:02 Dose: 100 mls/hr Vancomycin HCl 1,500 mg/ (Sodium Chloride) 500 mls @ 333.333 mls/hr IV Q12H [facility] Last Infusion: 07/24/23 06:17 Dose: Infused Melatonin (Melatonin 3 Mg Tablet) 6 mg PO BEDTIME PRN PRN Reason: Insomnia Methadone HCl (Methadone Hcl 20 Mg/2 Ml Oral.Conc) 210 mg PO DAILY [facility] Last Admin: 07/24/23 08:05 Dose: 210 mg Mirtazapine (Mirtazapine 15 Mg Tablet) 45 mg PO BEDTIME [facility] Last Admin: 07/23/23 20:07 Dose: 45 mg Morphine Sulfate (Morphine Sulfate 4 Mg/Ml Cartridge) 2 mg IVPUSH Q3H PRN; Protocol PRN Reason: Pain, Severe (Pain Scale 7-10) Last Admin: 07/24/23 06:45 Dose: 2 mg Nicotine (Nicotine 21 Mg Patch.Td24) 21 mg TRANSDERMA DAILY [facility] Last Admin: 07/24/23 08:06 Dose: 21 mg Omeprazole (Omeprazole 20 Mg Capsule.Dr) 20 mg PO DAILY PRN PRN Reason: Heartburn Oxycodone HCl (Oxycodone Hcl Immed Release 5 Mg Tablet) 5 mg PO Q6H PRN PRN Reason: Pain, Moderate(Pain Scale 4-6) Last Admin: 07/24/23 04:24 Dose: 5 mg Pharmacy Consult (Consult Rx Etoh Phenob Im/Po) 1 each MISCELLANE ONCE PRN; Protocol PRN Reason: Consult order Pharmacy Consult (Consult Rx Vancomycin Dosing) 1 each MISCELLANE DAILY PRN PRN Reason: Consult order Phenobarbital (Phenobarbital 30 Mg Tablet) 30 mg PO BID [facility]; Protocol Stop: 07/25/23 21:01 Last Admin: 07/24/23 08:04 Dose: 30 mg Phenobarbital (Phenobarbital 30 Mg Tablet) 30 mg PO DAILY [facility]; Protocol Stop: 07/27/23 09:01 Prazosin HCl (Prazosin Hcl 1 Mg Capsule) 1 mg PO BEDTIME [facility]; Protocol Last Admin: 07/23/23 20:08 Dose: 1 mg Senna (Sennosides 8.6 Mg Tablet) 17.2 mg PO BEDTIME PRN PRN Reason: Constipation Sodium Chloride (0.9 % Sodium Chloride Flush 3 Ml Syringe) 3 ml IVFLUSH QSHIFT [facility] Last Admin: 07/24/23 08:01 Dose: 3 ml Thiamine HCl (Thiamine Hcl 100 Mg Tablet) 100 mg PO DAILY [facility] Last Admin: 07/24/23 08:03 Dose: 100 mg Allergies Allergies Allergy/AdvReac Type Severity Reaction Status Date / Time No Known Allergies Allergy Verified 07/21/23 10:26 [No Known Allergies*] Assessment & Plan Assessment & Plan (1) Opioid use disorder: Status: Acute Code(s): F11.90 - Opioid use, unspecified, uncomplicated Assessment and Plan: currently engaged in treatment -methadone . feels stable on this dose discussed safer injection techniques no further follow up indicated Total time managing care of this patient today _20___ minutes. [facility] Past Medical History Medical History COVID-19 vaccine series completed IV drug abuse Alcohol abuse Surgical History Surgical History Hx of tooth extraction History of tonsillectomy Social History Social History Household Members: Family Household Members Other:: mother Housing: House Are you a primary care transitions nurse to a significant other at home: No Do you presently have visiting nurse or other home services: No Alcohol intake: current Alcohol intake frequency: 3 or more drinks per day Alcohol type: hard liquor Patient Tobacco Use Status: Current everyday Tobacco user Tobacco use type: Cigarette Cigarettes Per Day: 10 Years Smoked: 13 e-Cigarette/Vaping Use: Never Used Second Hand Smoke Exposure: No Substance Use Type: Crack/Cocaine and IV Drugs service: No
[2023-07-24 11:46] VITALS: BP 124/73; PULSE 65; RESP 19; TEMP 36.4; O2SAT 96
--- NOTE | 2023-07-24 12:06 | PM.DS ---
DS: Providers Provider Date of Service: 07/24/23 Date of admission: 07/21/23 14:42 Primary care physician: Arturo Jon MD Consults: 07/21/23 14:47 Consult to Orthopedics Routine Consulting Provider: [facility] Orthopedic Surgeons Reason for consultation: right hand infection; IVDU; h/o surgery with hardware Has provider been notified: No 07/21/23 14:54 Addiction Medicine Routine Consulting Provider: Addiction Covering Reason for consultation: ivdu, etoh Has provider been notified: No DS: Diagnosis Discharge Diagnosis (1) Opioid use disorder: Status: Acute DS: Summary Hospital Course Hospital Course: This is a 32-year-old male with history of IV drug abuse who presents to the emergency department with pain, redness, swelling of his right hand. He states that this began Monday evening and has progressively worsened since onset. He denies any associated fever or chills. The symptoms started after injecting cocaine and heroin into his right hand. In the emergency department he was afebrile, with no leukocytosis. X-ray showed screw fixation of the scaphoid bone with question of partial nonunion of the fracture and lucency surrounding the proximal portion of the screw questionable for loosening. He was treated with broad-spectrum antibiotics for cellulitis in the setting of IV drug use. He will be admitted for further management of right hand cellulitis. 32-year-old man with a history of IV drug use treated for right hand cellulitis. No evidence of sepsis. Seen by Orthopedic surgery with no indication for intervention. Treated with IV vancomycin and Zosyn. Edema and erythema continue to improve and discharged with doxycycline for 7 days to complete a total of 10 days treatment. Patient is in agreement with this. There is no open wound or drainage noted. He was also treated for alcohol dependence. He was given oral supplementation, seen evaluated by the Addiction Medicine team and treated phenobarbital. No withdrawal symptoms noted. Polysubstance abuse. Treated with methadone. Last dose 07/24/2023 Tobacco dependence. Discussed importance of smoking cessation. Treated with nicotine replacement therapy Mental health. Continue home medications Elevated LFTs. Hep C positive. Encouraged outpatient follow-up for treatment. Time Attestation Discharge Coordination Time (in mins): 36 Quality: Safe Use of Opioids Does Pt have an Active Cancer Diagnosis on the Problem List?: No Quality: Stroke Does the patient have a stroke diagnosis?: No Physical Exam Vital Signs: Vital Signs: Last Vital Signs Temp 97.5 F 07/24/23 11:46 Pulse 65 07/24/23 11:46 Resp 19 07/24/23 11:46 BP 124/73 07/24/23 11:46 Pulse Ox 96 07/24/23 11:46 O2 Del Method Room Air 07/24/23 11:46 BMI result Body Mass Index 28.4 Appearing in no acute distress head is normocephalic atraumatic eyes pupils are PERRLA sclera is anicteric mouth throat mucous membranes are intact and moist neck is supple no lymphadenopathy, no JVD noted lung sounds are clear to auscultation heart regular rate rhythm, clear S1, S2 positive bowel sounds, abdomen is soft, nontender neuro patient is alert x3, no focal deficits DS: Data Data Completed and Pending Labs on day of discharge: Laboratory Results - last 24 hr 07/23/23 07/24/23 13:12 06:35 Creatinine 0.73 Estim Creat Clear Calc 162.2 Estimated GFR > 60 Random Vancomycin 6.7 L Preliminary micro results at discharge 07/21/23 13:44 Blood Culture - Preliminary Blood - Venous No growth after 48 hours. 07/21/23 13:42 Blood Culture - Preliminary Blood - Venous No growth after 48 hours. Discharge Plan Discharge Anticipated Discharge Date/Time: 07/24/23 12:03 Patient Disposition: Home, Self-Care Discharge Diagnosis: Right hand cellulitis Referrals: Parker Uriostegui MD [Physician] - 1 Week Arturo Jon MD [Primary Care Provider] - 1 Week Discharge Medications: New doxycycline hyclate 100 mg tablet 100 mg PO BID Qty: 14 0RF Continued mirtazapine 45 mg tablet 45 mg PO BEDTIME methadone 10 mg/mL Concentrate 210 mg PO DAILY omeprazole 20 mg tablet,delayed release (DR/EC) 20 mg PO DAILY PRN (Reason: Heartburn) clonidine HCl 0.1 mg tablet 0.1 mg PO TID Rx Instructions: in the morning, noon, at bedtime hydroxyzine HCl 50 mg tablet 50 mg PO BID Rx Instructions: in the morning and at noon prazosin 1 mg capsule 1 mg PO BEDTIME Discharge Orders: Discharge Order (Routine); Ordered 07/24/23 Ordered By: Xi Robison Diet: Advance to usual diet Activity on Discharge: As tolerated Stand Alone Forms: Patient Portal Discharge page Print Language: Lithuanian Care Plan Goals: Complete course of antibiotics for hand cellulitis Health Concerns: Right hand cellulitis Alcohol dependence Polysubstance abuse Plan of Treatment: Follow-up with orthopedic surgery as needed Take all medications as prescribed Assessment: See discharge summary
--- NOTE | 2023-07-24 12:08 | MHC.CM.PN ---
Patient has been medically cleared for dc to home today, self care.
== END 2023-07-24 13:21 | disposition home or self-care (01) | DRG 383 ==
LOC: HO.ED 14:48 → HO.EDOVER 14:59 → HO.IMC 07-22 07:29
PROVIDERS: Family Medicine; Nurse Practitioner Psychiatric/Mental Health; Physician Assistant Medical; Admitting Provider Physician Assistant Medical; Emergency Provider Emergency Medicine Emergency Medical Services; PCP Family Medicine; Visit Provider Nurse Practitioner Acute Care
DX: L03.113 Cellulitis of right upper limb (principal); D69.59 Other secondary thrombocytopenia; B19.20 Unspecified viral hepatitis C without hepatic coma; F10.239 Alcohol dependence with withdrawal, unspecified; F19.10 Other psychoactive substance abuse, uncomplicated; F11.20 Opioid dependence, uncomplicated; F17.210 Nicotine dependence, cigarettes, uncomplicated; Z71.6 Tobacco abuse counseling; F41.9 Anxiety disorder, unspecified; F32.A Depression, unspecified; F43.10 Post-traumatic stress disorder, unspecified; Z79.899 Other long term (current) drug therapy
CPT/HCPCS: 36415; 73110; 80048; 80053; 80202; 80307; 82565; 83605; 83690; 83735; 85025; 85027; 85652; 86140; 86704; 86706; 86803; 87040; 87340; 87389; 99285; J2270; J2405; J2543; J2560; J3370; J3371

== ENCOUNTER → 2023-07-21 14:42 | Outpatient (BNV) | payer OTHER, SELFPAY | PROVIDERS: Admitting Provider Physician Assistant Medical; Emergency Provider Emergency Medicine Emergency Medical Services; PCP Family Medicine; Visit Provider Family Medicine | DX: L03.113 Cellulitis of right upper limb (principal); F11.90 Opioid use, unspecified, uncomplicated | CPT/HCPCS: 99223; 99232; 99233; 99239 ==

== ENCOUNTER → 2023-07-21 14:42 | Outpatient (BNV) | payer OTHER, SELFPAY | PROVIDERS: Admitting Provider Physician Assistant Medical; Emergency Provider Emergency Medicine Emergency Medical Services; PCP Family Medicine; Visit Provider Nurse Practitioner Psychiatric/Mental Health | DX: F11.90 Opioid use, unspecified, uncomplicated (principal) | CPT/HCPCS: 99231 ==

== ENCOUNTER → 2023-07-21 14:42 | Outpatient (BNV) | payer OTHER, SELFPAY | PROVIDERS: Admitting Provider Physician Assistant Medical; Emergency Provider Emergency Medicine Emergency Medical Services; PCP Family Medicine; Visit Provider Physician Assistant | DX: L03.113 Cellulitis of right upper limb (principal); F19.10 Other psychoactive substance abuse, uncomplicated | CPT/HCPCS: 99221 ==

== ENCOUNTER 2023-08-02 14:09 | Emergency (ER) | payer OTHER, SELFPAY ==
[2023-08-02 14:11] VITALS: BP 111/78; PULSE 83; RESP 18; TEMP 36.6; O2SAT 97; BMI 26.0
--- NOTE | 2023-08-02 14:13 | ED_ITS ---
HPI - General Adult General Chief complaint: ETOH/Substance Use Stated complaint: r wrist pain Time Seen by Provider: 08/02/23 14:24 Source: patient and old records reviewed Mode of arrival: ambulatory Limitations: no limitations History of Present Illness ED Provider: JANAK ASENCIO narrative: 32 yo male here with multiple complaints 1. wants R wrist recheck though looks better from recent cellulitis and no new complaints 2. wants methadone dose after blowing 167 at clinic on breathalyzer 3. ETOH detox he has no SI/HI and admits his wrist is much better MD complaint: see above multiple complaints Onset (ago): day(s) (1) Location: right and upper extremity Radiation: non-radiation Severity: mild Relieving factors: none Exacerbating factors: none Associated symptoms: denies other symptoms Treatments prior to arrival: none Related Data Home Medications ?Medication ?Instructions ?Recorded ?Confirmed clonidine HCl 0.1 mg tablet 0.1 mg PO TID 06/07/22 07/21/23 hydroxyzine HCl 50 mg tablet 50 mg PO BID anxiety 06/07/22 07/21/23 omeprazole 20 mg tablet,delayed 20 mg PO DAILY PRN Heartburn 06/07/22 07/21/23 release prazosin 1 mg capsule 1 mg PO BEDTIME 06/07/22 07/21/23 mirtazapine 45 mg tablet 45 mg PO BEDTIME 07/21/23 07/21/23 methadone 10 mg/mL oral concentrate 210 mg PO DAILY 07/22/23 07/22/23 Previous Rx's ?Medication ?Instructions ?Recorded doxycycline hyclate 100 mg tablet 100 mg PO BID #14 tabs 07/24/23 Allergies Allergy/AdvReac Type Severity Reaction Status Date / Time No Known Allergies Allergy Verified 08/02/23 14:15 [No Known Allergies*] Review of Systems 2 Review of Systems: Constitutional : No Fever, No Chills, No Fatigue ENT/Mouth : No sore throat, No Rhinorrhea Eyes: No Eye Pain, No Swelling, No Redness Cardiovascular : No Chest Pain, No SOB, No Dyspnea on Exertion Respiratory : No Cough, No Sputum Gastrointestinal : No Nausea, No Vomiting, No Diarrhea, No abdominal Pain Genitourinary : No Dysuria, No Urinary Frequency, No Hematuria, Musculoskeletal : No joint pain, No Myalgias, No Joint Swelling Skin : No Skin Lesions, No rash Neuro : No Weakness, No Numbness, No Dizziness, no Headache Psych : No Anxiety/Panic, No Depression All other systems reviewed and are negative [facility] Past Medical History Attestation statement: The following information was validated with the patient. Source: old records reviewed Medical History Opioid use disorder Alcohol withdrawal COVID-19 vaccine series completed IV drug abuse Alcohol abuse Surgical History Hx of tooth extraction History of tonsillectomy Social History Social History Household Members: Family Household Members Other:: mother Housing: House Are you a primary critical care nurse practitioner to a significant other at home: No Do you presently have visiting nurse or other home services: No Alcohol intake: current Alcohol intake frequency: 3 or more drinks per day Alcohol type: hard liquor Patient Tobacco Use Status: Current everyday Tobacco user Tobacco use type: Cigarette Cigarettes Per Day: 10 Years Smoked: 13 e-Cigarette/Vaping Use: Never Used Second Hand Smoke Exposure: No Substance Use Type: Crack/Cocaine and IV Drugs Advance Directives: No Advance Directives Information Provided: Yes service: No Physical Exam ED Vital Signs: Vital Signs - 24 hr 08/02/23 14:11 Temperature 97.9 F Pulse Rate 83 Respiratory Rate 18 Blood Pressure 111/78 Pulse Oximetry 97 Oxygen Delivery Method Room Air BMI result Body Mass Index 26.0 Appearance: Alert. Oriented X3. No acute distress. steady gait not toxic appears clinically sober Eyes: Pupils equal, round and reactive to light. ENT: Pharynx normal. Neck: Normal inspection. Neck supple. CVS: Normal heart rate and rhythm. Pulses normal. Respiratory: No respiratory distress. Breath sounds normal. Abdomen: Soft and non-tender. Skin: Skin warm and dry. Normal skin color. Normal skin turgor. Extremities: No lower extremity edema. R wrist no swelling normal ROM NV intact Neuro: Oriented X 3. No motor deficit. No sensory deficit. Course Course Course Narrative: This is an RME done by RUDY Wright: Additional HPI, ROS, PE not included below will be deferred to primary provider. 32 year old male hx of IV da, ethanol abuse, hx of recent r wrist cellulitis presents w/ r wrist pain for over a week, he was in the hospital discharged on Monday he states with p.o. antibiotics he ran out however despite this he continues to have right wrist pain. He reports pain started after he shot up in his right wrist. Reports he failed his Breathalyzer test today and was unable to receive methadone. Plan labs, patient will go directly to a room Medical Decision Making Medical Decision Making [facility] Narrative: 32 yo male with PMH of ETOH abuse and opiate use disorder here with c/o wanting his methadone dose after positive on breathalyzer test he also wants detox - his R wrist is much improved no signs of infection. No SI/HI. No head trauma. Looks clinically sober. Will ask addiction medicine to weigh in about giving dose and helping with detox. Plan to keep for detox bed. Differential Diagnosis Differential Diagnoses: The differential diagnosis associated with the presentation includes ETOH abuse, opiate use disorder Admission/Observation Consideration of admission/observation: Escalation of care including admission/observation considered refuses detox search once he found out we were not going to dose him with methadone due to intoxication Consult Healthcare Provider Management of the patient was discussed with: Investments Manager (addiction medicine) Lab Data [facility] Lab Attestation statement: I reviewed the patient's lab results. 08/02/23 14:29 08/02/23 14:29 Labs: Lab Results 08/02/23 Range/Units 14:29 WBC 7.0 (4.8-10.8) X10*3/uL RBC 4.73 (4.60-5.80) X10*6/uL Hgb 13.4 L (14.0-18.0) g/dl Hct 40.3 L (42.0-52.0) % MCV 85.2 (80.0-98.0) fL MCH 28.3 (27.0-33.0) pg MCHC 33.3 (31.0-36.0) g/dl RDW 12.6 (11.0-16.0) % Plt Count 271 D (160-400) X10*3/uL MPV 9.8 (9.4-12.4) fL Immature Gran % (Auto) 0.1 (0.0-0.4) % Neut % (Auto) 46.8 (45-73) % Lymph % (Auto) 43.6 H (20-40) % [place] % (Auto) 7.9 (2-11) % Eos % (Auto) 1.0 (0-4) % Baso % (Auto) 0.6 (0-2) % Lymph # (Auto) 3.1 (1.2-4.9) X10*3/uL [place] # (Auto) 0.6 (0.1-1.2) X10*3/uL Eos # (Auto) 0.1 (0.0-0.4) X10*3/uL Baso # (Auto) 0.0 (0.0-0.2) X10*3/uL Abs Immat Gran (auto) 0.01 (0.00-0.03) X10*3/uL Absolute Neuts (auto) 3.3 (2.0-8.3) x10*3/uL Absolute Nucleated RBC 0.000 (0.0-0.012) X10*3/uL Nucleated RBC % (auto) 0.0 (0.0-0.2) /100WBC Smear Tech's Comments VERIFIED Sodium 141 (135-145) mmol/L Potassium 3.7 (3.3-5.1) mmol/L Chloride 108 (96-108) mmol/L Carbon Dioxide 26 (22-29) mmol/L Anion Gap 11 L (12-20) BUN 13 (9-16) mg/dL Creatinine 0.69 (0.5-1.4) mg/dL Estim Creat Clear Calc 157.2 Estimated GFR > 60 Random Glucose 103 (60-115) mg/dL Calcium 9.4 (8.4-10.2) mg/dL Total Bilirubin 0.2 (0.0-1.0) mg/dL AST 34 (5-37) U/L ALT 30 (0-40) U/L Alkaline Phosphatase 86 (39-117) U/L C-Reactive Protein 2.98 H (< or = 0.50) mg/dL Total Protein 7.6 (6.5-8.0) g/dL Albumin 4.3 (3.5-5.0) g/dL Ethyl Alcohol 262 mg/dL External Record Review External record reviewed: Inpatient record Social Determinants Patient?s care significantly limited by Social Determinants of Health including: Problems related to primary support group Discharge Plan Discharge Clinical Impression: Alcohol abuse Patient Disposition: Home, Self-Care Instructions: Abuse of Alcohol (ED) Additional Instructions: you can return tomorrow for your methadone dose continue your detox search return for any other symptoms or concerns Prescriptions: No Action mirtazapine 45 mg tablet 45 mg PO BEDTIME methadone 10 mg/mL Concentrate 210 mg PO DAILY doxycycline hyclate 100 mg tablet 100 mg PO BID Qty: 14 0RF omeprazole 20 mg tablet,delayed release (DR/EC) 20 mg PO DAILY PRN (Reason: Heartburn) clonidine HCl 0.1 mg tablet 0.1 mg PO TID Rx Instructions: in the morning, noon, at bedtime hydroxyzine HCl 50 mg tablet 50 mg PO BID Rx Instructions: in the morning and at noon prazosin 1 mg capsule 1 mg PO BEDTIME Print Language: Maori
[2023-08-02 14:36] LABS: Basophils Percent Auto 0.6 % (0-2); Eosinophils Absolute Auto 0.1 X10*3/uL (0.0-0.4); Hematocrit 40.3 % (42.0-52.0); Hemoglobin 13.4 g/dl (14.0-18.0); Imm Gran Abs Auto 0.01 X10*3/uL (0.00-0.03); Imm Gran Pct Auto 0.1 % (0.0-0.4); Lymphocytes Absolute Auto 3.1 X10*3/uL (1.2-4.9); Lymphocytes Percent Auto 43.6 % (20-40); MANUAL DIFF FLAG SCAN; Mean Corpuscular HGB Conc 33.3 g/dl (31.0-36.0); Mean Corpuscular Hemoglobin 28.3 pg (27.0-33.0); Mean Corpuscular Volume 85.2 fL (80.0-98.0); Mean Platelet Volume 9.8 fL (9.4-12.4); Monocytes Absolute Auto 0.6 X10*3/uL (0.1-1.2); Monocytes Percent Auto 7.9 % (2-11); Neutrophils Absolute Auto 3.3 x10*3/uL (2.0-8.3); Neutrophils Percent Auto 46.8 % (45-73); Platelet Count 271 X10*3/uL (160-400); Red Blood Count 4.73 X10*6/uL (4.60-5.80); Red Cell Distribution Width 12.6 % (11.0-16.0); SCAN SMEAR FLAG 1
--- NOTE | 2023-08-02 14:42 | PC.NURSE ---
Pt grace/ox4, comes in for cellulitis in both hands. Once tech was in room, pt was reporting he missed his methadone dose. When he was breathalyzed he was told he wouldn't get his methadone dose unless went to ER. Call put out to [facility] Josephine [phone], awaiting a call back.
[2023-08-02 14:47] LABS: Ethanol 262 mg/dL
[2023-08-02 14:50] LABS: Alanine Aminotransferase 30 U/L (0-40); Albumin Level 4.3 g/dL (3.5-5.0); Alkaline Phosphatase 86 U/L (39-117); Anion Gap 11 (12-20); Aspartate Amino Transferase 34 U/L (5-37); Bilirubin Total 0.2 mg/dL (0.0-1.0); Blood Urea Nitrogen 13 mg/dL (9-16); C Reactive Protein 2.98 mg/dL (< or = 0.50); Calcium 9.4 mg/dL (8.4-10.2); Carbon Dioxide 26 mmol/L (22-29); Chloride 108 mmol/L (96-108); Creatinine Clr Calc Pharmacy 157.2; Estimated Glomerular Filt Rate > 60; Glucose Random 103 mg/dL (60-115); Potassium 3.7 mmol/L (3.3-5.1); Sodium 141 mmol/L (135-145); Total Protein 7.6 g/dL (6.5-8.0)
[2023-08-02 15:07] LABS: SLIDE REVIEW VERIFIED
[2023-08-02 15:23] LABS: Amphetamine Screen Urine Not Detected (Not Detect); Barbiturates, Urine POSITIVE (Not Detect); Benzodiazepines Screen Urine Not Detected (Not Detect); Buprenorphine Scr Not Detected (Not Detect); Cannabinoid Screen Urine POSITIVE (Not Detect); Cocaine Screen Urine POSITIVE (Not Detect); Fentanyl, urine POSITIVE (Not Detect); Methadone Screen, Urine Positive (Not Detect); Opiate Screen Urine POSITIVE (Not Detect); Oxycodone Screen Urine Not Detected (Not Detect); Phencyclidine Screen Urine Not Detected (Not Detect)
[2023-08-02 15:25] VITALS: BP 0/0; PULSE 0; RESP 0; TEMP -17.7; TEMP 0; O2SAT 0
[2023-08-02 15:44] LABS: Erythrocyte Sedimentation Rate 10 MM/HR (0-15)
--- NOTE | 2023-08-02 16:05 | MHC.RECOVRN ---
Met with pt in ED13 after consult placed to Addiction Medicine for failing breathalyzer/inability to receive methadone dose this morning as well as interest in ATS. Pts BAL at 1430 was 262. Pt sitting in bed, awake, alert, engages in conversation. Pt reports he went to the [facility] this morning ([facility]) and was unable to obtain dose due to failed breathalyzer. Pt also reports the [facility] did not give him a take home for tomorrow (t/w verified OTP is closed tomorrow due to heat). Pt informed he would not receive a dose now due to BAL, however, is welcome to return tomorrow to receive daily dose. Pt reports he had made calls to ATS facilities including [facility], [facility], and [facility]. Pt initially had reported interest in ATS, however, when he was informed he would not receive methadone dose pt voiced desire to discharge home. Pt denies questions or concerns for t/w. Discussed with ED provider.
== END 2023-08-02 15:59 | disposition home or self-care (01) ==
PROVIDERS: Physician Assistant; Emergency Provider Emergency Medicine; PCP Family Medicine
DX: F10.10 Alcohol abuse, uncomplicated (principal); M25.531 Pain in right wrist; Y90.8 Blood alcohol level of 240 mg/100 ml or more; Z79.899 Other long term (current) drug therapy; Z71.41 Alcohol abuse counseling and surveillance of alcoholic
CPT/HCPCS: 36415; 80053; 80307; 85025; 85652; 86140; 99284

== ENCOUNTER 2023-08-15 10:27 | Outpatient (REF) | payer OTHER, SELFPAY ==
--- NOTE | ~2023-08-15 | XR_ITS ---
EXAMINATION: XR HAND, LEFT CLINICAL INFORMATION: Small finger pain COMPARISON: Radiographs 07/14/2023 TECHNIQUE: PA, lateral, and oblique views of the left hand. FINDINGS: Soft tissue swelling surrounds the 5th PIP joint. Previous dislocation has been reduced with anatomic alignment. No finger fracture is evident. There is a transverse fracture of the scaphoid waist which is age indeterminate and may be chronic. XR/XR hand LT min 3V IMPRESSION: 1. Soft tissue swelling surrounds the realigned 5th PIP joint. No finger fracture. 2. Transverse fracture of the scaphoid waist which is age indeterminate and may be chronic.
== END 2023-08-15 10:28 | disposition home or self-care (01) ==
LOC: HO.HOSX 10:27
PROVIDERS: PCP Family Medicine; Visit Provider Orthopaedic Surgery
DX: M25.642 Stiffness of left hand, not elsewhere classified (principal); S63.287A Dislocation of proximal interphalangeal joint of left little finger, initial encounter; M25.531 Pain in right wrist
CPT/HCPCS: 73130; 99212

== ENCOUNTER 2023-08-15 10:27 | Outpatient (AMB) | payer OTHER, SELFPAY ==
--- NOTE | 2023-08-15 10:36 | A.OFFVIS_ITS ---
Vital Signs 08/15/23 10:44 Height 5 ft 11 in Weight 180 lb BMI 25.1 Handedness Right Intake Visit Reasons: FC - right scaphoid hardware failure/ fx Intake Note: Ced is a 32 year old right hand dominant male who presents today for right hand and wrist pain and swelling. He also has concerns for his left pinky today. Hx of right scaphoid fracture ORIF about 4 to 5 years ago in [place]. Patient reports he fell and went to [facility] on 07/15/23 due to dislocating his left pinky. States they pulled his pinky back in place and wrapped it up after but since he has been having on going pain. PIP of Left pinky appears swollen with redness. He express he was then seen in [facility] on 07/21/23 for his right wrist due to pain and swelling. He admits to injecting a substance into his right wrist on 07/21/23 and noticed the pain and swelling occur after. Says his pain is in the volar and dorsal aspect of his wrist but it all depends on certain movement. He states lifting and opening things is difficult due to the pain in his wrist. Hx of IVDU. Hx of broken left pinky s/p ED visit 07/15/23. Allergies No Known Allergies [No Known Allergies*] Allergy (Verified 08/15/23 10:53) HPI HPI FC - right scaphoid hardware failure/ fx: Details: Ced is a 32 year old right hand dominant man who presents with complaints of right wrist & left small finger pain. His chief complaint today is of his left small finger pain today. He reports falling on 07/14/23 and injuring his small finger. He was seen in the ED where he was found to have a left small finger PIP joint dislocation that was reduced in the emergency department. He says he continues to have some swelling pain and stiffness in that joint. He also complains of some pain in his right wrist. He has a Hx of a scaphoid ORIF done at [facility]. He was seen in the ED on 07/21/23 after injecting drugs into his right wrist & a fall. He was seen for wrist pain & cellulitis, which was managed with Abx. He was told his ORIF had loosening screws after his fall. He says his wrist is feeling better and not particularly bothersome. He has a Hx of IVDU, cocaine abuse, & ETOH abuse. On Methadone. Drinks 3+ drinks of hard liquor daily. He feels he is getting some control over his drug use. He has plans to attend a detox for his drinking. FOR[facility]LY [facility], [facility] Medical History Opioid use disorder Alcohol withdrawal COVID-19 vaccine series completed IV drug abuse Alcohol abuse Surgical History Hx of tooth extraction History of tonsillectomy Social History Household Members: Family Household Members Other:: mother Housing: House Are you a primary foster care therapist to a significant other at home: No Do you presently have visiting nurse or other home services: No Alcohol intake: current Alcohol intake frequency: 0-2 drinks per day Alcohol type: hard liquor Patient Tobacco Use Status: Current everyday Tobacco user Tobacco use type: Cigarette Cigarettes Per Day: 10 Years Smoked: 13 e-Cigarette/Vaping Use: Never Used Second Hand Smoke Exposure: No Substance Use Type: Crack/Cocaine and IV Drugs service: No Review of Systems Const All systems reviewed & are unremarkable except as noted in HPI and below Physical Exam Vital Signs: BMI result Body Mass Index 25.1 Const General: cooperative, healthy appearing and no acute distress Orientation/consciousness: patient oriented x3 HEENT Head: Yes normocephalic and Yes atraumatic Eyes EOM: EOMs intact bilaterally Resp Effort & Inspection: normal respiratory effort and able to speak in complete sentences Cardio Jugular venous distension: no JVD Skin General skin exam: turgor normal Rashes: no rashes Neuro General: patient oriented x3 Extrem Other: Evaluation of Left Upper Extremity: The patient is alert, oriented, and in no acute distress Neuro: Sensation of the tips of all digits. Vascular: Cap refill brisk ROM: He still has some swelling of the left small finger, particularly of the PIP joint Limited ROM of the small finger PIP joint. With encouragement I can get him to extend with an approximately 20 degree extension lag at the PIP joint. With encouragement I can then get him to actively bring his finger closed to a weak fist where the tip of the small finger actually touch the palm so that is pretty good. The PIP joint was stable on exam. Good range of motion in the other digits. We worked on ROM exercises today in clinic Skin: He has healing wounds on both hands, which may be related to his IVDU. General: No Ecchymosis. No Erythema or evidence of infection. Radiographs: 3 views of the left hand, with attention to the small finger, was taken, viewed, and compared to radiographs from 07/14/23. They show [ ]. Psych Appearance: grossly normal Affect: normal affect Attitude: cooperative Assessment & Plan Assessment & Plan (1) Stiffness of finger joint: Comment: L SF Code(s): M25.649 - Stiffness of unspecified hand, not elsewhere classified Category: Medical (2) Dislocation of proximal interphalangeal joint of left little finger: Code(s): S63.287A - Dislocation of proximal interphalangeal joint of left little finger, initial encounter Category: Medical (3) Right wrist pain: Code(s): M25.531 - Pain in right wrist Category: Medical Plan Assessment & Plan: 1. Left small finger stiffness & extensor lag Hx of PIP joint dislocation, S/P reduction DOI: 07/14/23, reduced in ED I educated him about this condition I discussed treatment option We worked on ROM exercises today in clinic I ordered OT hand therapy to work on ROM exercises & normalizing hand function If he continues to have difficulties with is ROM in the next 4 weeks, he may follow up with us 2. Right wrist pain S/P scaphoid ORIf at [facility] in ~[id number] Some loosening about the headless compression screw seen on Radiographs. He has healing across the fracture site, but I would order a CT scan if we were to see him for this. He is not particularly bothered by this today I recommend he return to follow-up with [facility] if he has any concerns about this. He says he was discussing with his original surgeon about a possible bone graft procedure. Scribed for Fide Wagoner MD by Shan Batista, medical technologist generalist, on 08/15/23 at 11:10 AM, EST. Orders: Orders XR hand LT min 3V Today M79.642 - Pain in left hand OT Evaluation and Treatment Today M25.649 - Stiffness of unspecified hand, not elsewhere classified, S63.287A - Dislocation of proximal interphalangeal joint of left little finger, initial encounter Coding Level of Care Code Est Pt Level 4 (65103) Diagnoses Stiffness of finger joint M25.649 Dislocation of proximal interphalangeal joint of left little finger S63.287A Right wrist pain M25.531
[2023-08-15 10:44] VITALS: BMI 25.1
== END 2023-08-15 11:42 | disposition home or self-care (01) ==
PROVIDERS: PCP Family Medicine; Visit Provider Orthopaedic Surgery
DX: M25.642 Stiffness of left hand, not elsewhere classified (principal); S63.287A Dislocation of proximal interphalangeal joint of left little finger, initial encounter; M25.531 Pain in right wrist
CPT/HCPCS: 99213

== ENCOUNTER 2024-01-03 08:51 | Inpatient (IN) | payer OTHER, SELFPAY ==
[2024-01-03] VITALS (12 sets, daily range): BP systolic 124–153; BP diastolic 73–111; PULSE 66–129; RESP 12–20; TEMP 36.1–36.9; O2SAT 89–99; BMI 23.8; BMI 25.0
--- NOTE | 2024-01-03 08:54 | ECG_ITS ---
Test Reason : SEIZURE Blood Pressure : / mmHG Vent. Rate : 098 BPM Atrial Rate : 098 BPM P-R Int : 134 ms QRS Dur : 090 ms QT Int : 386 ms P-R-T Axes : 076 091 061 degrees QTc Int : 492 ms Normal sinus rhythm Rightward axis Prolonged QT Abnormal ECG No previous ECGs available Referred By: Lisseth Rushing Electronically Signed By:TERRELL HAYS MD
[2024-01-03] MEDS: LORazepam 2 MG/ML VIAL IVPUSH ×2 (09:04→09:20)
[2024-01-03] MEDS: Thiamine HCL 200 MG in 0.9 % Sodium Chloride 100 ML 204 MG IV (09:16)
--- NOTE | 2024-01-03 09:19 | ED.SEIZURE ---
HPI - Seizure General Chief Complaint: Seizure Stated Complaint: SEIZURE PER EMS Source: patient, EMS and old records reviewed Mode of arrival: EMS Limitations: other (postictal ) History of Present Illness ED Provider: JANAK ASENCIO Narrative: 33 yo male with PMH of ETOH use disorder drinks about a half gallon of vodka a day last drink 2 days ago. Methadone use unclear last dose - he states he has never had a seizure before but mom noted 1 min grand mal seizure no head injury or fall reported. He is on arrival agitated and confused. He has no signs of head trauma MD complaint: seizure Onset (ago): minute(s) (OUTBOUND SALES AGENT) Description of Episode: loss of consciousness and tonic-clonic movement Duration of episode: 1 -: minutes(s) Witnessed: Yes - by Bystander (mom) Trauma: No Seizure History: No Place: Home Possible Precipitating Event: alcohol withdrawal Associated symptoms: denies other symptoms Treatments prior to arrival: none Related Data Home Medications ?Medication ?Instructions ?Recorded ?Confirmed clonidine HCl 0.1 mg tablet 0.1 mg PO TID 06/07/22 07/21/23 hydroxyzine HCl 50 mg tablet 50 mg PO BID anxiety 06/07/22 07/21/23 omeprazole 20 mg tablet,delayed 20 mg PO DAILY PRN Heartburn 06/07/22 07/21/23 release prazosin 1 mg capsule 1 mg PO BEDTIME 06/07/22 07/21/23 mirtazapine 45 mg tablet 45 mg PO BEDTIME 07/21/23 07/21/23 methadone 10 mg/mL oral concentrate 210 mg PO DAILY 07/22/23 07/22/23 Allergies Allergy/AdvReac Type Severity Reaction Status Date / Time No Known Allergies Allergy Verified 01/03/24 09:07 [No Known Allergies*] Review of Systems Review of Systems: Constitutional : No Fever, No Chills, No Fatigue ENT/Mouth : No sore throat, No Rhinorrhea Eyes: No Eye Pain, No Swelling, No Redness Cardiovascular : No Chest Pain, No SOB, No Dyspnea on Exertion Respiratory : No Cough, No Sputum Gastrointestinal : No Nausea, No Vomiting, No Diarrhea, No abdominal Pain Genitourinary : No Dysuria, No Urinary Frequency, No Hematuria, Musculoskeletal : No joint pain, No Myalgias, No Joint Swelling Skin : No Skin Lesions, No rash Neuro : No Weakness, No Numbness, No Dizziness, no Headache Psych :pos Anxiety/Panic, No Depression All other systems reviewed and are negative COUNTS INCLUDE 234 BEDS AT THE [facility] Past Medical History Attestation statement: The following information was validated with the patient. Source: old records reviewed Medical History Opioid use disorder Alcohol withdrawal COVID-19 vaccine series completed IV drug abuse Alcohol abuse Surgical History Hx of tooth extraction History of tonsillectomy Social History Social History Household Members: Family Household Members Other:: mother Housing: House Are you a primary med care manager to a significant other at home: No Do you presently have visiting nurse or other home services: No Alcohol intake: current Alcohol intake frequency: 3 or more drinks per day Alcohol type: hard liquor Patient Tobacco Use Status: Current everyday Tobacco user Tobacco use type: Cigarette Cigarettes Per Day: 10 Years Smoked: 13 Smoked in Last 30 Days: Yes e-Cigarette/Vaping Use: Never Used Second Hand Smoke Exposure: No Use of substances other than those prescribed or required for medical reasons: Yes Substance Use Type: Crack/Cocaine, Heroin and Prescription Drugs Substance Use Frequency: Daily Advance Directives: No Advance Directives Information Provided: No Do you have a plan to hurt others: No Plan service: No Physical Exam Vital Signs: Vital Signs: Last Vital Signs Temp 98.4 F 01/03/24 09:31 Pulse 99 01/03/24 09:32 Resp 13 01/03/24 09:32 BP 124/73 01/03/24 09:32 Pulse Ox 99 01/03/24 09:05 O2 Del Method Room Air 01/03/24 09:05 BMI result Body Mass Index 23.8 Appearance: Alert. Oriented X3. Mild acute distress. anxious sitting on edge of bed sig tremors of UE and tongue fasciculations Eyes: Pupils equal, round and reactive to light. ENT: Pharynx normal. Neck: Normal inspection. Neck supple. CVS: Normal heart rate and rhythm. Pulses normal. Respiratory: No respiratory distress. Breath sounds normal. Abdomen: Soft and nontender. Skin: Skin warm and dry. Normal skin color. Extremities: No lower extremity edema. Neuro: Oriented X 3. No motor deficit. No sensory deficit. Course Course Course Narrative: doing well after IV ativan 4mg phenobarb and methadone ordered Medications Administered Generic Name Dose Route Start Last Admin Trade Name Ezio PRN Reason Stop Dose Admin Magnesium Sulfate 2 gm in 50 mls @ 25 mls/hr 01/03/24 08:57 01/03/24 09:27 Magnesium Sulfate/H2o IV 01/03/24 10:56 25 mls/hr ONCE ONE Administration Discontinued Medications Generic Name Dose Route Start Last Admin Trade Name Ezio PRN Reason Stop Dose Admin Thiamine HCl 200 mg/ Sodium 102 mls @ 204 mls/hr 01/03/24 08:54 01/03/24 09:16 Chloride IV 01/03/24 09:23 204 mls/hr ONCE ONE Administration Lorazepam 2 mg 01/03/24 08:54 01/03/24 09:04 Lorazepam 2 Mg/Ml Vial IVPUSH 01/03/24 08:55 2 mg ONCE ONE Administration Lorazepam 2 mg 01/03/24 09:13 01/03/24 09:20 Lorazepam 2 Mg/Ml Vial IVPUSH 01/03/24 09:14 2 mg ONCE ONE Administration Medical Decision Making Medical Decision Making [facility] Narrative: 33 yo male with PMH of ETOH use disorder, opiate use disorder here with c/o lack of ETOH for 2 days now seized this AM without head trauma - at this time will need basic labs, IVF, IV ativan 4mg ordered as initial 2mg did not touch him he admits to abusing benzos as well unclear last time he took it. IV thiamine, ativan, phenobarb protocol, magnesium and anticipate admission for ETOH withdrawal seizure Differential Diagnosis Differential Diagnoses: The differential diagnosis associated with the presentation includes ETOH withdrawal syndrome, seizure, lyte abnormality Admission/Observation Consideration of admission/observation: Escalation of care including admission/observation considered admit for ETOH withdrawal Consult Healthcare Provider Management of the patient was discussed with: Hospitalist (will admit) Lab Data [facility] Lab Attestation statement: I reviewed the patient's lab results. 01/03/24 09:45 01/03/24 09:45 Labs: Lab Results 01/03/24 Range/Units 09:45 WBC 4.7 L (4.8-10.8) X10*3/uL RBC 4.51 L (4.60-5.80) X10*6/uL Hgb 13.0 L (14.0-18.0) g/dl Hct 39.0 L (42.0-52.0) % MCV 86.5 (80.0-98.0) fL MCH 28.8 (27.0-33.0) pg MCHC 33.3 (31.0-36.0) g/dl RDW 13.3 (11.0-16.0) % Plt Count 247 (160-400) X10*3/uL MPV 9.6 (9.4-12.4) fL Immature Gran % (Auto) 0.4 (0.0-0.4) % Neut % (Auto) 81.8 H (45-73) % Lymph % (Auto) 10.0 L (20-40) % [place] % (Auto) 6.8 (2-11) % Eos % (Auto) 0.4 (0-4) % Baso % (Auto) 0.6 (0-2) % Lymph # (Auto) 0.5 L (1.2-4.9) X10*3/uL [place] # (Auto) 0.3 (0.1-1.2) X10*3/uL Eos # (Auto) 0.0 (0.0-0.4) X10*3/uL Baso # (Auto) 0.0 (0.0-0.2) X10*3/uL Abs Immat Gran (auto) 0.02 (0.00-0.03) X10*3/uL Absolute Neuts (auto) 3.8 (2.0-8.3) x10*3/uL Absolute Nucleated RBC 0.000 (0.0-0.012) X10*3/uL Nucleated RBC % (auto) 0.0 (0.0-0.2) /100WBC Sodium 142 (135-145) mmol/L Potassium 3.5 (3.3-5.1) mmol/L Chloride 100 (96-108) mmol/L Carbon Dioxide 31 H (22-29) mmol/L Anion Gap 15 (12-20) BUN 7 L (9-16) mg/dL Creatinine 0.68 (0.5-1.4) mg/dL Estim Creat Clear Calc 158.0 Estimated GFR > 60 Random Glucose 160 H (60-115) mg/dL Calcium 9.5 (8.4-10.2) mg/dL Magnesium 2.5 (1.6-2.6) mg/dL Total Bilirubin 0.6 (0.0-1.0) mg/dL Direct Bilirubin 0.3 (0.0-0.5) mg/dL AST 149 H (5-37) U/L ALT 113 H (0-40) U/L Alkaline Phosphatase 116 (39-117) U/L Total Protein 6.9 (6.5-8.0) g/dL Albumin 3.9 (3.5-5.0) g/dL Lipase 38 (8-78) U/L Ethyl Alcohol < 10 mg/dL Independent Interpretation I performed an independent interpretation of an: EKG Interpretation: Rate: 98 Rhythm: NSR [place]: right Normal P waves. Normal VERONICA. Normal QRS complex. ST T wave : no DIANE, flat t waves aVL qTC: 492 prior studies: no STEMi, prolonged qtc The study has been interpreted contemporaneously by me. . Independent Historian Clinical information obtained from an independent historian. History obtained from or confirmed by: EMS External Record Review External record reviewed: Inpatient record and Outpatient record Discharge Plan Discharge Clinical Impression: Alcohol withdrawal seizure Qualifiers: Complication of substance-induced condition: uncomplicated Qualified Code(s): F10.930 - Alcohol use, unspecified with withdrawal, uncomplicated Patient Disposition: Admitted As Inpatient Print Language: Bulgarian
[2024-01-03] MEDS: Magnesium Sulfate/H2O 2 GM/50 ML PIGGYBACK IV (09:27)
--- NOTE | 2024-01-03 09:41 | PC.NURSE ---
Pt comes to ED via EMS from home. Per EMS, Pts mother witnessed a grand mal seizure x1 minute; no injuries. Pt is alert at time of arrival with confusion and agitation. Pt reports daily use of ETOH, Klonopin 2mg, cocaine, heroin and is on methadone 210 mg ([facility] [place] Pt is oriented to person only. He c/o severe diffused pain and restlessness. Pt presents with continuous agitation and anxiety. CIWA = 25, Dr. Rushing aware. Pt medicated with Ativan initially. Will verify Methadone.
[2024-01-03 09:50] LABS: MANUAL DIFF FLAG NO
[2024-01-03 09:52] LABS: Basophils Percent Auto 0.6 % (0-2); Eosinophils Percent Auto 0.4 % (0-4); Imm Gran Abs Auto 0.02 X10*3/uL (0.00-0.03); Imm Gran Pct Auto 0.4 % (0.0-0.4); Lymphocytes Absolute Auto 0.5 X10*3/uL (1.2-4.9); Mean Corpuscular HGB Conc 33.3 g/dl (31.0-36.0); Mean Corpuscular Hemoglobin 28.8 pg (27.0-33.0); Mean Corpuscular Volume 86.5 fL (80.0-98.0); Mean Platelet Volume 9.6 fL (9.4-12.4); Monocytes Absolute Auto 0.3 X10*3/uL (0.1-1.2); Monocytes Percent Auto 6.8 % (2-11); Neutrophils Absolute Auto 3.8 x10*3/uL (2.0-8.3); Neutrophils Percent Auto 81.8 % (45-73); Platelet Count 247 X10*3/uL (160-400); Red Blood Count 4.51 X10*6/uL (4.60-5.80); Red Cell Distribution Width 13.3 % (11.0-16.0); White Blood Count 4.7 X10*3/uL (4.8-10.8)
--- NOTE | 2024-01-03 10:07 | PC.NURSE ---
Call placed to [facility] in [place] @ [phone] to verify Pts Methadone dose. Per RN Cassi, Pt last received 210mg Methadone on 12/1723. Pt was denies dose on 01/01/24 d/t (+) breathalyzer. Methadone verification form completed and faxed to Pharmacy. Dr. Сергей banegas.
[2024-01-03 10:14] LABS: Alanine Aminotransferase 113 U/L (0-40); Albumin Level 3.9 g/dL (3.5-5.0); Alkaline Phosphatase 116 U/L (39-117); Anion Gap 15 (12-20); Aspartate Amino Transferase 149 U/L (5-37); Bilirubin Direct 0.3 mg/dL (0.0-0.5); Bilirubin Total 0.6 mg/dL (0.0-1.0); Blood Urea Nitrogen 7 mg/dL (9-16); Calcium 9.5 mg/dL (8.4-10.2); Carbon Dioxide 31 mmol/L (22-29); Chloride 100 mmol/L (96-108); Estimated Glomerular Filt Rate > 60; Ethanol < 10 mg/dL; Glucose Random 160 mg/dL (60-115); Lipase 38 U/L (8-78); Magnesium 2.5 mg/dL (1.6-2.6); Potassium 3.5 mmol/L (3.3-5.1); Sodium 142 mmol/L (135-145); Total Protein 6.9 g/dL (6.5-8.0)
[2024-01-03] MEDS: PHENobarbitaL sodium 130 MG/ML IM ONCE 350 MG IM (10:19)
--- NOTE | 2024-01-03 10:42 | PHA.MEDREC ---
Addendum entered by Amy Berg RPh 01/03/24 10:56: Med rec was reviewed by JOHANN. Patient takes clonidine and hydroxyzine prn anxiety. Original Note: Pharmacy Consult ? Medication Reconciliation Pharmacy has completed the medication reconciliation. Spoke to patients mother Inga over the phone to confirm med list. Mother was able to read off patients medications from patients bottles. Mother states patient is on Methadone 210mg daily from [facility] in [place]. Mother says patient was not able to get Monday and Monday dose because patient was Drinking alcohol. She states that the patient was in the process of trying to get into a Detox center before he came to [facility]. Last known dose of Methadone was 12/31/23.
--- NOTE | 2024-01-03 11:05 | PM.IMHP ---
History of Present Illness Date of Service: 01/03/24 Attending physician on admission: Mandeep Vizcaino Chief Complaint: seizure Pt is a 33 yo male with a pmhx significant for ?seizure disorder (focal per pt, not on seizure meds), polysubstance use on methadone, ?pre-diabetic and etoh abuse, who presented to the ED due to a witnessed grand mal seizure by his mother. The patient reports that he had not been drinking any alcohol for the past 2 days but usually drinks a half a gal of vodka per day. He was denied his methadone dose on the as he was intoxicated. His mother stated the seizure lasted about 1 minute. He arrived to the ED postictal and was given 2 mg Ativan with lack of response and history of benzo abuse, given an additional 2 mg. His nurse reports his CIWA score was 25 upon arrival. He was started on phenobarb protocol and has been anxious and agitated, threatening to leave AMA. The patient reports that he has a focal seizure disorder after an incident falling asleep on train tracks. He is not on any seizure medication. He complains of a moderate headache, anxiety and agitation but denies any visual or auditory hallucinations. He would like to go to detox. Review of Systems Constitutional: Constitutional: Denies chills, Denies fever(s) and Reports headache(s) Eyes: Eyes: Denies change in vision and Denies other visual disturbances ENT: Reports headache(s), Denies nasal congestion, Denies nasal discharge, Denies nasal obstruction and Denies sore throat Cardiovascular: Cardiovascular: Denies chest pain, Denies rapid heart rate, Denies leg edema and Denies dyspnea Respiratory: Respiratory: Denies chest congestion, Denies cough, Denies dyspnea and Denies wheezing Gastrointestinal: Gastrointestinal: Denies constipation, Denies diarrhea, Denies nausea and Denies vomiting Genitourinary: Genitourinary: Denies dysuria Musculoskeletal: Musculoskeletal: Reports myalgias Integumentary/Breasts: Skin/Breast: Denies rash Neurologic: Reports as per HPI, Reports confusion, Reports headache(s), Reports memory loss, Denies Other visual disturbances and Reports seizure-like activity Psychiatric: Psychiatric: Reports confusion and Reports memory loss Allergic/Immunologic: Allergic/Immunologic: Denies wheezing [facility] Medical History Opioid use disorder Alcohol withdrawal COVID-19 vaccine series completed IV drug abuse Alcohol abuse Functional capacity: independent ambulation Surgical History Hx of tooth extraction History of tonsillectomy Social History Household Members: Family Household Members Other:: mother Housing: House Are you a primary coronary care unit nurse to a significant other at home: No Do you presently have visiting nurse or other home services: No Alcohol intake: current Alcohol intake frequency: 3 or more drinks per day Alcohol type: hard liquor Patient Tobacco Use Status: Current everyday Tobacco user Tobacco use type: Cigarette Cigarettes Per Day: 10 Years Smoked: 13 Smoked in Last 30 Days: Yes e-Cigarette/Vaping Use: Never Used Second Hand Smoke Exposure: No Use of substances other than those prescribed or required for medical reasons: Yes Substance Use Type: Crack/Cocaine, Heroin and Prescription Drugs Substance Use Frequency: Daily Advance Directives: No Advance Directives Information Provided: No Do you have a plan to hurt others: No Plan service: No Meds Allergies Allergy/AdvReac Type Severity Reaction Status Date / Time No Known Allergies Allergy Verified 01/03/24 09:07 [No Known Allergies*] Active Medications: Current Medications Acetaminophen (Acetaminophen 325 Mg Tablet) 650 mg PO Q6H PRN PRN Reason: Pain, Mild (Pain Scale 1-3), fever or headache Calcium Carbonate (Calcium Carbonate 750 Mg Tab.Chew) 750 mg PO Q4H PRN PRN Reason: Heartburn Enoxaparin Sodium (Enoxaparin Sodium 40 Mg/0.4 Ml Syringe) 40 mg SUBCUT Q24H [facility] Lactated Ringer's (Lr) 1,000 mls @ 100 mls/hr IVCONT .Q10H ROSIE Stop: 01/04/24 06:59 Magnesium Hydroxide (Milk Of Magnesia 30 Ml Oral.Susp) 30 ml PO DAILY PRN PRN Reason: Constipation Melatonin (Melatonin 3 Mg Tablet) 6 mg PO BEDTIME PRN PRN Reason: Insomnia Methadone HCl (Methadone Hcl 20 Mg/2 Ml Oral.Conc) 210 mg PO ONCE ONE Stop: 01/03/24 10:17 Nicotine (Nicotine 14 Mg Patch.Td24) 14 mg TRANSDERMA DAILY ROSIE Ondansetron HCl (Ondansetron Hcl 4 Mg/2 Ml Vial) 4 mg IVPUSH Q8H PRN PRN Reason: Nausea and Vomiting Pharmacy Consult (Consult Rx Etoh Phenob Im/Po) 1 each MISCELLANE ONCE PRN; Protocol PRN Reason: Consult order Phenobarbital (Phenobarbital 30 Mg Tablet) 60 mg PO BID ROSIE Stop: 01/05/24 09:01 Phenobarbital (Phenobarbital 30 Mg Tablet) 30 mg PO BID ROSIE Stop: 01/07/24 09:01 Phenobarbital (Phenobarbital 30 Mg Tablet) 30 mg PO BEDTIME ROSIE Stop: 01/08/24 21:01 Phenobarbital Sodium (Phenobarbital Sodium 130 Mg/Ml Vial Im Q3hx2) 260 mg IM Q3H ROSIE Stop: 01/03/24 16:01 Sodium Chloride (0.9 % Sodium Chloride Flush 3 Ml Syringe) 3 ml IVFLUSH QSHIFT [facility] Home Medications ?Medication ?Instructions ?Recorded ?Confirmed ?Last Taken ?Type clonidine HCl 0.1 mg tablet 0.1 mg PO TID PRN Anxiety 06/07/22 01/03/24 07/21/23 History hydroxyzine HCl 50 mg tablet 50 mg PO BID PRN anxiety 06/07/22 01/03/24 07/21/23 History omeprazole 20 mg tablet,delayed 20 mg PO DAILY@0630 PRN Heartburn 06/07/22 01/03/24 Unknown History release prazosin 1 mg capsule 1 mg PO BEDTIME 06/07/22 01/03/24 Unknown History mirtazapine 45 mg tablet 45 mg PO BEDTIME 07/21/23 01/03/24 Unknown History methadone 10 mg/mL oral concentrate 210 mg PO DAILY 07/22/23 07/22/23 07/21/23 History albuterol sulfate 90 mcg/actuation 2 puff inhalation QID PRN wheezing 01/03/24 01/03/24 Unknown History aerosol inhaler (Ventolin HFA) Physical Exam Vital Signs and Narrative: Vital Signs: Last Vital Signs Temp 98.4 F 01/03/24 09:31 Pulse 99 01/03/24 09:32 Resp 13 01/03/24 09:32 BP 124/73 01/03/24 09:32 Pulse Ox 99 01/03/24 09:05 O2 Del Method Room Air 01/03/24 09:05 BMI result Body Mass Index 23.8 General: alert with some disorientation to place, no acute distress Resp: CTA bilaterally CVS: S1, S2, RRR GI: +BS, NT, no distention Skin: Warm, dry, no diaphoresis, abrasions throughout on body Neuro: PERRLA, motor intact, sensation intact Extremities: No edema Psych: Agitated Const: General: confusion Orientation/consciousness: confusion Neuro: General: confusion Results Labs 01/03/24 09:45 01/03/24 09:45 Labs: Laboratory Results - last 24 hr 01/03/24 09:45 MCV 86.5 MCH 28.8 MCHC 33.3 RDW 13.3 Plt Count 247 MPV 9.6 Immature Gran % (Auto) 0.4 Neut % (Auto) 81.8 H Lymph % (Auto) 10.0 L Weld % (Auto) 6.8 Eos % (Auto) 0.4 Baso % (Auto) 0.6 Lymph # (Auto) 0.5 L [place] # (Auto) 0.3 Eos # (Auto) 0.0 Baso # (Auto) 0.0 Abs Immat Gran (auto) 0.02 Absolute Neuts (auto) 3.8 Absolute Nucleated RBC 0.000 Nucleated RBC % (auto) 0.0 Anion Gap 15 Estim Creat Clear Calc 158.0 Estimated GFR > 60 Random Glucose 160 H Calcium 9.5 Magnesium 2.5 Total Bilirubin 0.6 Direct Bilirubin 0.3 AST 149 H ALT 113 H Alkaline Phosphatase 116 Total Protein 6.9 Albumin 3.9 Lipase 38 Ethyl Alcohol < 10 Assessment and Plan (1) Alcohol withdrawal seizure: Qualifiers: Complication of substance-induced condition: uncomplicated Qualified Code(s): F10.930 - Alcohol use, unspecified with withdrawal, uncomplicated; R56.9 - Unspecified convulsions Status: Acute (2) Polysubstance abuse: Status: Acute (3) Elevated LFTs: Status: Acute Plan Pt is a 33 yo male with a pmhx significant for ?seizure disorder (focal per pt, not on seizure meds), polysubstance use on methadone, ?pre-diabetic and etoh abuse, who presented to the ED due to a witnessed grand mal seizure by his mother. although pt has a possible seizure d/o (focal) and in the context this is most likely an etoh withdrawal seizure. He has been without etoh x2 days and has been drinking 1/2 gallon of vodka daily prior. etoh withdrawal with seizure - mild tremor, moderate headache and agitated, no hallucinations - given 4mg ativan in ED, on phenobarb now, will continue phenobarb - given IV thiamine and mag, recheck mag tomorrow - thiamine, folate and multivitamin daily - continue seizure precautions and CIWAs - IVF - LR 100ml/hr - admit to med tele - addiction med consult - monitor CBC, CMP and mag polysubstance abuse - continue methadone once dose confirmed - addiction med consult as above ?pre-diabetic - check A1C elevated LFTs - likely due to etoh abuse - monitor LFTs while here with CMP - hep C + in 08/06, obtain history regarding treatment when pt is more alert and oriented full code VTE prophy: lovenox Patient with alcohol withdrawal seizure requiring admission for at least 2 midnight stay for monitoring and medication withdrawal. Quality Stroke Does the patient have a stroke diagnosis?: No VTE Prior VTE?: No VTE Risk Level:: Medical - moderate - high VTE Device Contraindication: Treatment Not Indicated VTE Drug Contraindication: N/A - Med Ordered
[2024-01-03 11:08] LABS: Amphetamine Screen Urine Not Detected (Not Detect); Barbiturates, Urine POSITIVE (Not Detect); Benzodiazepines Screen Urine Not Detected (Not Detect); Buprenorphine Scr Not Detected (Not Detect); Cannabinoid Screen Urine Not Detected (Not Detect); Cocaine Screen Urine POSITIVE (Not Detect); Fentanyl, urine POSITIVE (Not Detect); Methadone Screen, Urine Positive (Not Detect); Opiate Screen Urine POSITIVE (Not Detect); Oxycodone Screen Urine Not Detected (Not Detect); Phencyclidine Screen Urine Not Detected (Not Detect)
[2024-01-03] MEDS: Nicotine 14 MG PATCH.TD24 TRANSDERMA (11:18)
[2024-01-03] MEDS: Lactated Ringers 1,000 ML 100 ML IVCONT ×2 (11:20→21:53)
[2024-01-03] MEDS: Enoxaparin Sodium 40 MG/0.4 ML SYRINGE SUBCUT (11:20)
[2024-01-03 11:24] LABS: Estimated Average Glucose 103 mg/dL; Hemoglobin A1C 116.6501 umol/L; Hemoglobin A1c % 5.2 % (<6.0); Total Hemoglobin (HGBA1C) 3446.4164 umol/L
--- NOTE | 2024-01-03 11:44 | HE.PHANOTE ---
Re Methadone Pt receives 210mg from [facility] . Last dose was given on 12/31/23.
[2024-01-03 12:01] LABS: Glucose, Whole Blood 105 mg/dL (60-115)
[2024-01-03] MEDS: methADONE HCl 20 MG/2 ML ORAL.CONC 210 MG PO (12:02)
[2024-01-03] MEDS: PHENobarbitaL sodium 130 MG/ML VIAL IM Q3Hx2 260 MG IM ×2 (13:26→15:52)
[2024-01-03] MEDS: Acetaminophen 325 MG TABLET 650 MG PO ×2 (15:53→22:03)
[2024-01-03] MEDS: hydrOXYzine HCL 50 MG TABLET PO (15:53)
--- NOTE | 2024-01-03 16:06 | PC.NURSE ---
Pts family at bedside at lunch time. Pt is alert but anxious and agitated. Pt eats about 20% of lunch but wishes to keep his tray so he can eat periodically. Pt rests comfortably with eye closed for most of the afternoon. Pt wakes easy around 4pm for medications and eats a pudding and drinks two juices. CIWA = 7 at this time. PRN given for CARVER and anxiety. Pt is now resting quietly.
--- NOTE | 2024-01-03 18:06 | PC.NURSE ---
Pt continues to rest comfortably in stretcher. O2 sats noted to drop to 89% on RA while sleeping. Pt wakes easily and O2 sat recovers to normal but once Pt falls back asleep O2 sat drops down again. 2L O2 applied via NC with good result. All other VSS at this time.
[2024-01-03] MEDS: Mirtazapine 15 MG TABLET 45 MG PO (21:49)
[2024-01-03] MEDS: PHENobarbitaL 30 MG TABLET 60 MG PO (21:49)
[2024-01-03] MEDS: Prazosin HCL 1 MG CAPSULE PO (21:49)
[2024-01-03] MEDS: cloNIDine HCL 0.1 MG TABLET PO (21:55)
--- NOTE | 2024-01-03 21:58 | PC.NURSE ---
pt medicated as per MAR. endorsing anxiety, and concerned about martinez assistance money being taken by family. card is at home. explained plan of care. pt enocuraged to call mom to bring card in, and to wait for addiction medicine to meet with him. Pt agreeable
[2024-01-04] MEDS: guaiFEN/Codeine SF 200/20/10ML 10 ML LIQUID PO (01:25)
[2024-01-04 03:54] VITALS: BP 125/82; PULSE 65; RESP 21; TEMP 36.3; O2SAT 94
[2024-01-04] MEDS: hydrOXYzine HCL 50 MG TABLET PO (04:16)
[2024-01-04 06:30] LABS: MANUAL DIFF FLAG NO
[2024-01-04 06:54] LABS: Basophils Percent Auto 0.7 % (0-2); Eosinophils Absolute Auto 0.2 X10*3/uL (0.0-0.4); Eosinophils Percent Auto 4.2 % (0-4); Hematocrit 39.9 % (42.0-52.0); Hemoglobin 13.2 g/dl (14.0-18.0); Imm Gran Abs Auto 0.01 X10*3/uL (0.00-0.03); Imm Gran Pct Auto 0.2 % (0.0-0.4); Lymphocytes Absolute Auto 1.5 X10*3/uL (1.2-4.9); Lymphocytes Percent Auto 37.4 % (20-40); Mean Corpuscular HGB Conc 33.1 g/dl (31.0-36.0); Mean Corpuscular Hemoglobin 28.8 pg (27.0-33.0); Mean Corpuscular Volume 87.1 fL (80.0-98.0); Mean Platelet Volume 10.2 fL (9.4-12.4); Monocytes Absolute Auto 0.4 X10*3/uL (0.1-1.2); Monocytes Percent Auto 8.8 % (2-11); Neutrophils Percent Auto 48.7 % (45-73); Platelet Count 222 X10*3/uL (160-400); Red Blood Count 4.58 X10*6/uL (4.60-5.80); Red Cell Distribution Width 13.3 % (11.0-16.0); White Blood Count 4.1 X10*3/uL (4.8-10.8)
[2024-01-04 06:57] LABS: Alanine Aminotransferase 87 U/L (0-40); Albumin Level 3.3 g/dL (3.5-5.0); Alkaline Phosphatase 89 U/L (39-117); Anion Gap 12 (12-20); Aspartate Amino Transferase 106 U/L (5-37); Bilirubin Total 0.6 mg/dL (0.0-1.0); Blood Urea Nitrogen 4 mg/dL (9-16); Calcium 8.9 mg/dL (8.4-10.2); Carbon Dioxide 27 mmol/L (22-29); Chloride 100 mmol/L (96-108); Creatinine Clr Calc Pharmacy 185.2; Estimated Glomerular Filt Rate > 60; Glucose Random 130 mg/dL (60-115); Magnesium 1.9 mg/dL (1.6-2.6); Potassium 3.3 mmol/L (3.3-5.1); Sodium 136 mmol/L (135-145); Total Protein 6.2 g/dL (6.5-8.0)
[2024-01-04 07:33] VITALS: BP 138/110; PULSE 84; RESP 14; TEMP 36; O2SAT 97
[2024-01-04] MEDS: PHENobarbitaL 30 MG TABLET 60 MG PO (09:02)
[2024-01-04] MEDS: Folic Acid 1 MG TABLET PO (09:02)
[2024-01-04] MEDS: Thiamine HCL 100 MG TABLET PO (09:02)
[2024-01-04] MEDS: Multivitamin TABLET 1 TAB PO (09:02)
[2024-01-04] MEDS: 0.9 % Sodium Chloride Flush 3 ML SYRINGE IVFLUSH (09:03)
[2024-01-04] MEDS: methADONE HCl 20 MG/2 ML ORAL.CONC 210 MG PO (09:03)
[2024-01-04] MEDS: PHENobarbitaL sodium 65 MG/ML VIAL IM (09:03)
[2024-01-04] MEDS: cloNIDine HCL 0.1 MG TABLET PO (09:07)
[2024-01-04] MEDS: Nicotine 14 MG PATCH.TD24 TRANSDERMA (09:23)
--- NOTE | 2024-01-04 10:17 | MHC.CM.PN ---
EMR REVIEWED, PT W/ETOH WITHDRAWAL SIEZURE/PSA, CM MET W/PT WHO REPORTS HE LIVES W/HIS MOM CARINE, PT IS FULLY INDEP W/CARE, DENIES USE OF DME, HAS SA COUNSELOR AND MMTP AT [facility], PT REQUESTING TO SPEAK W/RECOVERY TEAM TO DISCUSS PROGRAMS. PCP VERIFIED CHETAN LAZARO, SCREEN PRINTER, PT EDUCATED ON AND COMPLETED A HCP NAMING HIS MOTHER CARINE RODRIGUES [phone] HIS HCA, COPY UPLOADED TO [facility] AND PLACED IN CHART. ANTIC PT WILL DC HOME SELF CARE VS RECOVERY TEAM INTERVENTION, PT WILL ARRANGE TRANSPORT IF HOME
--- NOTE | 2024-01-04 10:22 | P.PNIM_ITS ---
Subjective Subjective Date of Service: 01/04/24 Interval History: anxious jittery Physical Exam 2 Vital Signs: Vital Signs: Last Vital Signs Temp 96.8 F 01/04/24 07:33 Pulse 84 01/04/24 07:33 Resp 14 01/04/24 07:33 BP 138/110 H 01/04/24 07:33 Pulse Ox 97 01/04/24 07:33 O2 Del Method Room Air 01/04/24 07:33 O2 Flow Rate 2 01/03/24 18:55 BMI result Body Mass Index 25.0 General: AO X 3, anxios appearing, tremulous Resp: CTA bilateral, no accessory muscles used CVS: S1,S2,RRR GI: soft, non tender, non distended Neuro: motor grossly intact, alert Objective Data Active Medications Acetaminophen (Acetaminophen 325 Mg Tablet) 650 mg PO Q6H PRN PRN Reason: Pain, Mild (Pain Scale 1-3), fever or headache Last Admin: 01/03/24 22:03 Dose: 650 mg Documented By: JACKELIN Albuterol Sulfate (Albuterol Sulfate 90 Mcg 8 Gm Inhaler) 2 puff INHALE QID PRN PRN Reason: wheezing Calcium Carbonate (Calcium Carbonate 750 Mg Tab.Chew) 750 mg PO Q4H PRN PRN Reason: Heartburn Clonidine HCl (Clonidine Hcl 0.1 Mg Tablet) 0.1 mg PO TID PRN; Protocol PRN Reason: Anxiety Last Admin: 01/04/24 09:07 Dose: 0.1 mg Documented By: TE Enoxaparin Sodium (Enoxaparin Sodium 40 Mg/0.4 Ml Syringe) 40 mg SUBCUT Q24H ROSIE Last Admin: 01/03/24 11:20 Dose: 40 mg Documented By: SARA Folic Acid (Folic Acid 1 Mg Tablet) 1 mg PO DAILY ROSIE Stop: 01/07/24 08:59 Last Admin: 01/04/24 09:02 Dose: 1 mg Documented By: TE Guaifenesin/Codeine Phosphate (Guaifen/Codeine Sf 200/20/10ml 10 Ml Liquid) 10 ml PO Q4H PRN PRN Reason: Cough Last Admin: 01/04/24 01:25 Dose: 10 ml Documented By: BROWN Hydroxyzine HCl (Hydroxyzine Hcl 50 Mg Tablet) 50 mg PO BID PRN PRN Reason: anxiety Last Admin: 01/04/24 04:16 Dose: 50 mg Documented By: BROWN Magnesium Hydroxide (Milk Of Magnesia 30 Ml Oral.Susp) 30 ml PO DAILY PRN PRN Reason: Constipation Melatonin (Melatonin 3 Mg Tablet) 6 mg PO BEDTIME PRN PRN Reason: Insomnia Methadone HCl (Methadone Hcl 20 Mg/2 Ml Oral.Conc) 210 mg PO DAILY [facility] Last Admin: 01/04/24 09:03 Dose: 210 mg Documented By: TE Co-signed By: HILARY Mirtazapine (Mirtazapine 15 Mg Tablet) 45 mg PO BEDTIME [facility] Last Admin: 01/03/24 21:49 Dose: 45 mg Documented By: JACKELIN Multivitamins/Vitamin C (Multivitamin Tablet) 1 tab PO DAILY [facility] Stop: 01/07/24 08:59 Last Admin: 01/04/24 09:02 Dose: 1 tab Documented By: TE Nicotine (Nicotine 14 Mg Patch.Td24) 14 mg TRANSDERMA DAILY [facility] Last Admin: 01/04/24 09:23 Dose: 14 mg Documented By: TE Omeprazole (Omeprazole 20 Mg Capsule.Dr) 20 mg PO DAILY@0630 PRN PRN Reason: Heartburn Ondansetron HCl (Ondansetron Hcl 4 Mg/2 Ml Vial) 4 mg IVPUSH Q8H PRN PRN Reason: Nausea and Vomiting Pharmacy Consult (Consult Rx Etoh Phenob Im/Po) 1 each MISCELLANE ONCE PRN; Protocol PRN Reason: Consult order Phenobarbital (Phenobarbital 30 Mg Tablet) 60 mg PO BID [facility] Stop: 01/05/24 09:01 Last Admin: 01/04/24 09:02 Dose: 60 mg Documented By: TE Phenobarbital (Phenobarbital 30 Mg Tablet) 30 mg PO BID [facility] Stop: 01/07/24 09:01 Phenobarbital (Phenobarbital 30 Mg Tablet) 30 mg PO BEDTIME [facility] Stop: 01/08/24 21:01 Prazosin HCl (Prazosin Hcl 1 Mg Capsule) 1 mg PO BEDTIME [facility]; Protocol Last Admin: 01/03/24 21:49 Dose: 1 mg Documented By: JACKELIN Sodium Chloride (0.9 % Sodium Chloride Flush 3 Ml Syringe) 3 ml IVFLUSH QSHIFT [facility] Last Admin: 01/04/24 09:03 Dose: 3 ml Documented By: TE Thiamine HCl (Thiamine Hcl 100 Mg Tablet) 100 mg PO DAILY [facility] Stop: 01/07/24 08:59 Last Admin: 01/04/24 09:02 Dose: 100 mg Documented By: TE Labs 01/04/24 05:54 01/04/24 05:54 Labs: Laboratory Results - last 24 hr 01/03/24 01/03/24 01/03/24 09:45 10:48 11:58 MCV MCH MCHC RDW Plt Count MPV Immature Gran % (Auto) Neut % (Auto) Lymph % (Auto) [place] % (Auto) Eos % (Auto) Baso % (Auto) Lymph # (Auto) [place] # (Auto) Eos # (Auto) Baso # (Auto) Abs Immat Gran (auto) Absolute Neuts (auto) Absolute Nucleated RBC Nucleated RBC % (auto) Anion Gap Estim Creat Clear Calc Estimated GFR POC Glucose 105 Random Glucose Estimat Average Glucose 103 Hemoglobin A1c % 5.2 Calcium Magnesium Total Bilirubin AST ALT Alkaline Phosphatase Total Protein Albumin Urine Opiates Screen POSITIVE H Ur Buprenorphine Scrn Not Detected Ur Oxycodone Screen Not Detected Urine Methadone Screen Positive H Urine Fentanyl Screen POSITIVE H Ur Barbiturates Screen POSITIVE H Ur Phencyclidine Scrn Not Detected Ur Amphetamines Screen Not Detected U Benzodiazepines Scrn Not Detected Urine Cocaine Screen POSITIVE H U Marijuana (THC) Screen Not Detected 01/04/24 05:54 MCV 87.1 MCH 28.8 MCHC 33.1 RDW 13.3 Plt Count 222 MPV 10.2 Immature Gran % (Auto) 0.2 Neut % (Auto) 48.7 Lymph % (Auto) 37.4 [place] % (Auto) 8.8 Eos % (Auto) 4.2 H Baso % (Auto) 0.7 Lymph # (Auto) 1.5 [place] # (Auto) 0.4 Eos # (Auto) 0.2 Baso # (Auto) 0.0 Abs Immat Gran (auto) 0.01 Absolute Neuts (auto) 2.0 Absolute Nucleated RBC 0.000 Nucleated RBC % (auto) 0.0 Anion Gap 12 Estim Creat Clear Calc 185.2 Estimated GFR > 60 POC Glucose Random Glucose 130 H Estimat Average Glucose Hemoglobin A1c % Calcium 8.9 D Magnesium 1.9 Total Bilirubin 0.6 AST 106 H ALT 87 H Alkaline Phosphatase 89 Total Protein 6.2 L Albumin 3.3 L Urine Opiates Screen Ur Buprenorphine Scrn Ur Oxycodone Screen Urine Methadone Screen Urine Fentanyl Screen Ur Barbiturates Screen Ur Phencyclidine Scrn Ur Amphetamines Screen U Benzodiazepines Scrn Urine Cocaine Screen U Marijuana (THC) Screen Assessment and Plan (1) Polysubstance abuse: Status: Acute Plan 33M PMH seizure disorder, hcv, polysubstance dependence on methadone, prediabetes, alcohol dependence presented with witnessed seizure Alcohol dependence with withdrawal and withdrawal seizure Continue phenobarbital, monitor CIWA, thiamine, folate, multivitamin Addiction med eval Polysubstance dependence Continue methadone HCV and alcoholic steatohepatitis Outpatient follow up DVT prophylaxis with Lovenox Full Code reason for continued hospitalization: Ongoing withdrawal treatment Quality Stroke Does the patient have a stroke diagnosis?: No VTE Prior VTE?: No VTE Risk Level:: Medical - moderate - high VTE Device Contraindication: Treatment Not Indicated VTE Drug Contraindication: N/A - Med Ordered
[2024-01-04 11:29] VITALS: BP 132/89; PULSE 70; RESP 16; TEMP 36.4; O2SAT 95
--- NOTE | 2024-01-04 14:08 | PM.DS ---
DS: Providers Provider Date of Service: 01/04/24 Date of admission: 01/03/24 10:57 Date of discharge: 01/04/24 Primary care physician: Unknown Physician Consults: 01/03/24 11:01 Addiction Medicine Routine Consulting Provider: Addiction Covering Reason for consultation: etoh/JACQUELYN Has provider been notified: No DS: Diagnosis Discharge Diagnosis (1) Polysubstance abuse: Status: Acute DS: Summary Hospital Course Hospital Course: from initial hpi: 33 yo male with a pmhx significant for ?seizure disorder (focal per pt, not on seizure meds), polysubstance use on methadone, ?pre-diabetic and etoh abuse, who presented to the ED due to a witnessed grand mal seizure by his mother. The patient reports that he had not been drinking any alcohol for the past 2 days but usually drinks a half a gal of vodka per day. He was denied his methadone dose on the as he was intoxicated. His mother stated the seizure lasted about 1 minute. He arrived to the ED postictal and was given 2 mg Ativan with lack of response and history of benzo abuse, given an additional 2 mg. His nurse reports his CIWA score was 25 upon arrival. He was started on phenobarb protocol and has been anxious and agitated, threatening to leave AMA. The patient reports that he has a focal seizure disorder after an incident falling asleep on train tracks. He is not on any seizure medication. He complains of a moderate headache, anxiety and agitation but denies any visual or auditory hallucinations. He would like to go to detox. hospital course: patient was admitted for alcohol dependence with withdrawal withdrawal seizure. Was treated with phenobarbital protocol, thiamine, folate, multivitamin. Was seen by Addiction team who provided patient with literature. For polysubstance dependence and was continued on methadone. For HCV and alcoholic steatohepatitis outpatient follow up was recommended. Patient is still scoring high on CIWA and demonstrating withdrawal symptoms although he was alert and oriented x3 with good insight into his medical condition and is requesting leave against medical advice. He was able to demonstrate understanding of the risks of doing so including . Time Attestation Discharge Coordination Time (in mins): 35 Quality: Safe Use of Opioids Does Pt have an Active Cancer Diagnosis on the Problem List?: No Quality: Stroke Does the patient have a stroke diagnosis?: No Physical Exam Vital Signs: Vital Signs: Last Vital Signs Temp 97.5 F 01/04/24 11:29 Pulse 70 01/04/24 11:29 Resp 16 01/04/24 11:29 BP 132/89 01/04/24 11:29 Pulse Ox 95 01/04/24 11:29 O2 Del Method Room Air 01/04/24 11:29 O2 Flow Rate 2 01/03/24 18:55 BMI result Body Mass Index 25.0 General: AO X 3, anxios appearing, tremulous Resp: CTA bilateral, no accessory muscles used CVS: S1,S2,RRR GI: soft, non tender, non distended Neuro: motor grossly intact, alert DS: Data Data Completed and Pending Completed studies during hospitalization [Text1]: Procedures Detoxification Services for Substance Abuse Treatment (07/21/23) Labs on day of discharge: Laboratory Results - last 24 hr 01/04/24 05:54 WBC 4.1 L RBC 4.58 L Hgb 13.2 L Hct 39.9 L MCV 87.1 MCH 28.8 MCHC 33.1 RDW 13.3 Plt Count 222 MPV 10.2 Immature Gran % (Auto) 0.2 Neut % (Auto) 48.7 Lymph % (Auto) 37.4 [place] % (Auto) 8.8 Eos % (Auto) 4.2 H Baso % (Auto) 0.7 Lymph # (Auto) 1.5 [place] # (Auto) 0.4 Eos # (Auto) 0.2 Baso # (Auto) 0.0 Abs Immat Gran (auto) 0.01 Absolute Neuts (auto) 2.0 Absolute Nucleated RBC 0.000 Nucleated RBC % (auto) 0.0 Sodium 136 Potassium 3.3 Chloride 100 Carbon Dioxide 27 Anion Gap 12 BUN 4 L Creatinine 0.58 Estim Creat Clear Calc 185.2 Estimated GFR > 60 Random Glucose 130 H Calcium 8.9 D Magnesium 1.9 Total Bilirubin 0.6 AST 106 H ALT 87 H Alkaline Phosphatase 89 Total Protein 6.2 L Albumin 3.3 L Discharge Plan Discharge Anticipated Discharge Date/Time: 01/04/24 14:08 Patient Disposition: Left Against Medical Advice Discharge Diagnosis: eoth withdrawal Referrals: Physician,Unknown J [Primary Care Provider] - 1 Week Discharge Medications: No Action albuterol sulfate [Ventolin HFA] 90 mcg/actuation HFA aerosol inhaler 2 puff inhalation QID PRN (Reason: wheezing) mirtazapine 45 mg tablet 45 mg PO BEDTIME methadone 10 mg/mL Concentrate 210 mg PO DAILY omeprazole 20 mg tablet,delayed release (DR/EC) 20 mg PO DAILY@0630 PRN (Reason: Heartburn) clonidine HCl 0.1 mg tablet 0.1 mg PO TID PRN (Reason: Anxiety) Rx Instructions: in the morning, noon, at bedtime hydroxyzine HCl 50 mg tablet 50 mg PO BID PRN (Reason: anxiety) Rx Instructions: in the morning and at noon prazosin 1 mg capsule 1 mg PO BEDTIME Discharge Orders: Discharge Order (Routine); Ordered 01/04/24 Ordered By: Mandeep Vizcaino Diet: Advance to usual diet Activity on Discharge: As tolerated Print Language: Syriac Care Plan Goals: recovery Health Concerns: etoh wisam Plan of Treatment: cant treat properly outpatient Assessment: see above
--- NOTE | 2024-01-04 14:49 | MHC.RECOVRN ---
AUDIT-C Brief Intervention Pt had positive screen for unhealthy alcohol use on admission, subsequently met with t/w to discuss alcohol use and recovery supports/options. This radio script writer met with patient to discuss current alcohol use and concerns related to increased risk of alcohol related problems.? Pt reports 1/2 samira archuleta daily x 1 month. Discussed how alcohol use has impacted health, including negative impact on overall physical wellbeing. Pt also reports his alcohol use has impacted his ability to receive his methadone due to positive breathalyzers. Withdrawal History: reports history of seizures, believes they are related to alcohol use as well as TBI acquired in 2020 Treatment History: ATS x 8+, Sect 35 x 5+, denies CSS/TSS level of care Supports:?mom, sister, two first cousins Pt reports hx of AA/NA and having a sponsor, would like to have a sponsor again. Pt reports he would like to change the company I keep. Pt reports he has a therapist through [facility] but has not met with him in months. Discussed risk reduction strategies including drinking below the recommended limit. Provided pt with written resources including information on inpatient and outpatient treatment, NATALEE, harm reduction, and recovery coaching. Pt plans to return home, review resources, and meet with onsite health coach tomorrow morning. Pt provided with t/w contact information if questions or concerns arise. Denies other questions or concerns at this time.?
--- NOTE | 2024-01-04 14:54 | MHC.RECOVRN ---
Met with pt in 462 after consult placed to Addiction Medicine for OUD/AUD. Pt currently admitted after withdrawal seizure. Completed AUDIT-C Brief Intervention, please see AUDIT C note. In addition to alcohol use, pt reports heroin/fentanyl use, 1/2 gram, IV, 5-7 times weekly as well as cocaine, 1/2-3/4 gram, IV, 5-7 days per week. Pt reports sometimes he does not use every day. Pt denies hx of overdose. Pt currently receives 210 mg methadone x 1.5 years through [facility] in [place]. Pt reports he utilizes [employer] for injection supplies. Pt reports methadone has helped him decrease use, however, he continues to use cocaine and utilizes the heroin/fentanyl to take the edge off. Discussed recovery resources and supports, provided written resources. 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 Pt plans to return home and will reach out to t/w if needed.
--- NOTE | 2024-01-04 15:02 | MHC.CM.PN ---
PT LEFT AMA
== END 2024-01-04 14:48 | disposition left against medical advice (07) | DRG 770 ==
LOC: HO.ED 10:04 → HO.EDOVER 11:40 → HO.IMC 19:07
PROVIDERS: Admitting Provider Physician Assistant; Emergency Provider Emergency Medicine; Visit Provider Internal Medicine
DX: F10.239 Alcohol dependence with withdrawal, unspecified (principal); R56.9 Unspecified convulsions; K70.0 Alcoholic fatty liver; F11.20 Opioid dependence, uncomplicated; B19.20 Unspecified viral hepatitis C without hepatic coma; F19.20 Other psychoactive substance dependence, uncomplicated; F17.210 Nicotine dependence, cigarettes, uncomplicated; R73.03 Prediabetes; Z79.899 Other long term (current) drug therapy
CPT/HCPCS: 36415; 80048; 80053; 80076; 80307; 82947; 83036; 83690; 83735; 85025; 93005; 99285; J1650; J2060; J2560; J3411; J3475; J7120

== ENCOUNTER → 2024-01-03 08:54 | Outpatient (BNV) | payer OTHER, SELFPAY | PROVIDERS: Admitting Provider Physician Assistant; Emergency Provider Emergency Medicine; Visit Provider Internal Medicine Cardiovascular Disease | DX: R94.31 Abnormal electrocardiogram [ECG] [EKG] (principal) | CPT/HCPCS: 93010 ==

== ENCOUNTER → 2024-01-03 10:57 | Outpatient (BNV) | payer OTHER, SELFPAY | PROVIDERS: Admitting Provider Physician Assistant; Emergency Provider Emergency Medicine; Visit Provider Physician Assistant | DX: F10.930 Alcohol use, unspecified with withdrawal, uncomplicated (principal); F19.10 Other psychoactive substance abuse, uncomplicated; Z53.29 Procedure and treatment not carried out because of patient's decision for other reasons | CPT/HCPCS: 99223; 99239; 99499 ==

== ENCOUNTER 2024-02-29 16:50 | Emergency (ER) | payer OTHER, SELFPAY ==
[2024-02-29] VITALS (11 sets, daily range): BP systolic 106–155; BP diastolic 77–108; PULSE 80–138; RESP 16–20; TEMP -17.7–0; O2SAT 98–100
--- NOTE | ~2024-02-29 | XR_ITS ---
CLINICAL HISTORY: line placement 1 view chest x-ray Comparison: CR - XR CHEST 1V - 02/29/24 17:27 EST Findings: There is a left chest tube with residual 5 percent pneumothorax. A right transjugular catheter is identified with tip in the right brachiocephalic vein. Recommend advancement of at least 7 cm. Redemonstration of hazy left lung opacities. IMPRESSION: 1. Right transjugular catheter is identified with tip in the right brachiocephalic vein. Recommend advancement of at least 7 cm. 2. Left chest tube present with residual 5 percent pneumothorax. This document has been electronically signed by: Alma Grant DO on 02/29/2024 18:18:02
--- NOTE | ~2024-02-29 | XR_ITS ---
CLINICAL HISTORY: post chest tube 1 view chest x-ray Comparison: CR - XR CHEST 1V - 02/29/24 16:54 EST Findings: Interval placement of a left-sided large bore chest tube. No pneumothorax is identified however imaging was obtained in the supine position. The lung apices are incompletely imaged. Redemonstration of left-sided pulmonary opacities. Stable cardiomediastinal silhouette and bony structures. IMPRESSION: 1. Interval placement of a left-sided chest tube. No visible pneumothorax on supine imaging with exclusion of the lung apices. 2. A right central line is partly visualized with tip likely in the right brachiocephalic vein. Recommend advancement. This document has been electronically signed by: Alma Grant DO on 02/29/2024 18:13:51
--- NOTE | ~2024-02-29 | XR_ITS ---
CLINICAL HISTORY: puncture wound 1 view chest x-ray Comparison: None Findings: There is a left-sided pneumothorax. Maximum distance between the pleural surfaces is 1.5 cm. There are hazy opacities in the left lung. Heart size is accentuated by portable technique and suboptimal inspiratory effort. No acute fracture. IMPRESSION: 1. Left-sided pneumothorax is least 30 percent. Recommend follow-up CT chest. 2. Hazy left lung opacities secondary to contusions, consolidation or a pleural effusion. This can be further assessed with CT. This document has been electronically signed by: Alma Grant DO on 02/29/2024 17:46:25
[2024-02-29] MEDS: Ketamine HCl/NS 100 MG/10 ML SYRINGE IVPUSH ×2 (17:00→17:10)
[2024-02-29] MEDS: Ketamine HCl/NS 50 MG/5 ML SYRINGE 100 MG IVPUSH (17:15)
[2024-02-29] MEDS: ceFAZolin Sodium/Dextrose,Iso 2 GM/50 ML PIGGYBACK IV (17:24)
[2024-02-29] MEDS: Succinylcholine Chloride 200 MG/10 ML VIAL 100 MG IVPUSH (17:36)
[2024-02-29 17:37] LABS: MANUAL DIFF FLAG NO
[2024-02-29 17:45] LABS: Basophils Percent Auto 0.5 % (0-2); Eosinophils Absolute Auto 0.1 X10*3/uL (0.0-0.4); Eosinophils Percent Auto 1.9 % (0-4); Hematocrit 32.2 % (42.0-52.0); Hemoglobin 10.7 g/dl (14.0-18.0); Imm Gran Abs Auto 0.03 X10*3/uL (0.00-0.03); Imm Gran Pct Auto 0.5 % (0.0-0.4); Lymphocytes Absolute Auto 2.3 X10*3/uL (1.2-4.9); Lymphocytes Percent Auto 35.9 % (20-40); Mean Corpuscular HGB Conc 33.2 g/dl (31.0-36.0); Mean Corpuscular Hemoglobin 28.1 pg (27.0-33.0); Mean Corpuscular Volume 84.5 fL (80.0-98.0); Mean Platelet Volume 9.7 fL (9.4-12.4); Monocytes Absolute Auto 0.4 X10*3/uL (0.1-1.2); Monocytes Percent Auto 6.1 % (2-11); Neutrophils Absolute Auto 3.5 x10*3/uL (2.0-8.3); Neutrophils Percent Auto 55.1 % (45-73); Platelet Count 187 X10*3/uL (160-400); Red Blood Count 3.81 X10*6/uL (4.60-5.80); Red Cell Distribution Width 13.9 % (11.0-16.0); White Blood Count 6.4 X10*3/uL (4.8-10.8)
[2024-02-29] MEDS: Midazolam HCl 5 MG/ML VIAL 6 MG IVPUSH (17:49)
[2024-02-29] MEDS: SODIUM CHLORIDE 0.9% IV (17:49)
[2024-02-29] MEDS: TRANEXAMIC ACID IV (17:49)
[2024-02-29 17:53] LABS: Alanine Aminotransferase 27 U/L (0-40); Albumin Level 3.4 g/dL (3.5-5.0); Alkaline Phosphatase 62 U/L (39-117); Anion Gap 9 (12-20); Aspartate Amino Transferase 31 U/L (5-37); Bilirubin Total 0.2 mg/dL (0.0-1.0); Blood Urea Nitrogen 10 mg/dL (9-16); Calcium 7.5 mg/dL (8.4-10.2); Carbon Dioxide 24 mmol/L (22-29); Chloride 110 mmol/L (96-108); Estimated Glomerular Filt Rate > 60; Glucose Random 151 mg/dL (60-115); Potassium 3.2 mmol/L (3.3-5.1); Sodium 140 mmol/L (135-145); Total Protein 6.1 g/dL (6.5-8.0)
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
[2024-02-29] MEDS: Ketamine HCl 500 MG in 0.9 % Sodium Chloride 250 ML 21.57 MG IVCONT (17:55)
[2024-02-29 18:03] LABS: Prothrombin Time 12.2 SEC (10.9-12.4)
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
[2024-02-29 18:19] LABS: Partial Thromboplastin Time 24.4 SEC (26.0-36.8)
--- OUTSIDE RECORDS SUMMARY | 2024-02-29 21:06 | XMS_ITS | Continuity of Care Document ---
Author Organization [facility] Juan R lt Address [address] [place] [address]- Care Team Providers Care Biostatistician Name Role Phone Teena Basilio Primary Care Physician [phone] [id number] Date(s): 01/04/24 - 02/03/24 [facility] Adult [address] [place] [address]- Encounter Type: Triage Allergies, Adverse Reactions, Alerts No Known Allergies Immunizations Given and Recorded Vaccine Date Status Refusal Reason Hepatitis A Adult Vaccine 04/07/21 Recorded tetanus/diphtheria/pertussis, acel(Tdap) 03/13/21 Recorded SARS-CoV-2 (COVID-19) mRNA-1273 vaccine 07/24/20 R ecorded SARS-CoV-2 (COVID-19) mRNA-1273 vaccine 06/26/20 R ecorded influenza virus vaccine, inactivated 03/14/16 Give n Rabies Vaccine (oldterm) 1 08/25/08 Given Rabies Vaccine (oldterm) 2 08/22/08 Given Rabies Immune Globulin, Human 08/22/08 Given 1Admin Note: pt karl inj well immunization for day 3 2Result Comment: Lot #[id number] exp 01/03/12 Medications cloNIDine 0.1 mg oral tablet 1, tablet, By Mouth, 3 times a day, # 90 tablet, Refills 2, Tot. Refills 2, Maintenance, 01/15/24 12:52:00 PM EST, Route to Pharmacy Electronically, [facility]/pharmacy #[id number], 180, cm, 08/11/23 10:09:00 EDT,Height, 90.9, kg, 03/08/22 0:31:00 EST, Dry Weight Start Date: 01/15/24 Status: Ordered Quantity: 90.0 Unit: tablet Repeat number: 3 hydrOXYzine hydrochloride 50 mg oral tablet 1 tablet, By Mouth, 2 times a day, PRN NEEDED FOR ANXIETY, # 60 tablet, 5 Refills, Maintenance, 01/15/24 9:24:00 AM EST, [facility] STORE [id number], 180, cm, 08/11/23 10:09:00 EDT, Height, 90.9, kg, 03/08/22 0:31:00 EST, Dry Weight Start Date: 01/15/24 Status: Ordered Quantity: 60.0 Unit: tablet Repeat number: 1 Methadone = 210 mg, By Mouth, 0 Refills, Maintenance, 03/14/16 9:41:18 AM EST Start Date: 03/14/16 Status: Ordered Repeat number: 1 mirtazapine 45 mg oral tablet 1 tablet, By Mouth, Daily at bedtime, # 30 tablet, 2 Refills, Maintenance, 01/15/24 12:52:00 PM EST,[facility]/pharmacy #[id number], 180, cm, 08/11/23 10:09:00 EDT, Height, 90.9, kg, 03/08/22 0:31:00 EST, Dry Weight Start Date: 01/15/24 Status: Ordered Quantity: 30.0 Unit: tablet Repeat number: 3 omeprazole 20 mg oral enteric coated capsule 1 capsule = 20 mg, By Mouth, Daily, # 90 capsule, 1 Refills, Maintenance, 01/15/24 12:53:00 PM EST, EC Capsule, [facility]/pharmacy #[id number], Partial fill upon patient request if the prescription is for a schedule II opioid drug., 180, cm, 08/11/23 10:09:00 EDT, Height, 90.9, kg, 03/08/22 0:31:00 EST, Dry Weight Start Date: 01/15/24 Status: Ordered Quantity: 90.0 Unit: capsule Repeat number: 2 Indication: Gastro-esophageal reflux disease without esophagitis prazosin 1 mg oral capsule 1, capsule, By Mouth, Daily at bedtime, # 90 capsule, Refills 1, Tot. Refills 1, Maintenance, 01/15/24 12:52:00 PM EST, Route to Pharmacy Electronically, [facility]/pharmacy #[id number], 180, cm, 08/11/23 10:09:00EDT, Height, 90.9, kg, 03/08/22 0:31:00 EST, Dry Weight Start Date: 01/15/24 Status: Ordered Quantity: 90.0 Unit: capsule Repeat number: 2 Ventolin HFA 108 mcg/inh inhalation aerosol with adapter 2 puffs, Inhalation, 4 times a day, PRN NEEDED FOR WHEEZING, # 18 each, 5 Refills, Maintenance, 01/15/24 12:53:00 PM EST, [facility]/pharmacy #[id number], 180, cm, 08/11/23 10:09:00 EDT, Height, 90.9, kg, 03/08/22 0:31:00 EST, Dry Weight Start Date: 01/15/24 Status: Ordered Quantity: 18.0 Unit: each Repeat number: 6 Problem List Condition Confirmation Course Effective Dates Status H ealth Status Informant Psychogenic nonepileptic seizure Confirmed Active History of traumatic brain injury Confirmed Active Open wound of right upper arm Confirmed Active Polysubstance abuse Confirmed Active PTSD (post-traumatic stress disorder) Confirmed Active Major depressive disorder, severe Confirmed Active Hepatitis C Confirmed Active Social History Social History Type Response Smoking Status Current every day sm oker; Tobacco user in household: Yes; Type: Cigarettes; Interested in cessation: No; Tobacco use times per day: half of pack a day; Number of years: 5; Started at age: 20; entered on: 03/14/16 Sex Sex Representation Male (finding) Patient Care team information Care Team Personnel Name: Kirti Charlton RN Position: [facility] RN Member Role: Primary Care Nurse Name: Brandan Lakhani RN Position: [facility] SN RN Member Role: Primary Care Nurse Name: Yaritza Woodard RN Position: [facility] RN Member Role: Primary Care Nurse Name: Cricket Nieto RN Position: [facility] RN Member Role: Primary Care Nurse Name: Beau Bell RN Position: [facility] RN Member Role: Primary Care Nurse Name: Sonia Hagan RN Position: [facility] RN Member Role: Primary Care Nurse Name: Rashi Broderick RN Position: [facility] RN Member Role: Primary Care Nurse Name: Teena Basilio Position: [facility] PCO Associate Professional Member Role: PCP Address: [address] [place] [id number] Telecom: Name: Joaquina Carbajal RN Position: [facility] RN Member Role: Primary Care Nurse Name: Cahro Daily RN Position: [facility] RN Member Role: Primary Care Nurse Name: Danika Gonzales RN Position: [facility] RN Member Role: Primary Care Nurse Name: Alec Chiang RN Position: [facility] RN Member Role: Primary Care Nurse Care Team Related Persons Name: CARINE RODRIGUES Name: CARINE RODRIGUES Name: IBAN SOLORZANO Insurance Providers Guarantor name: JAYLEEN Health Plan Information #: 1 Payer: [facility] Member Number: NA Policy Number: NA Group Number: NA
--- OUTSIDE RECORDS SUMMARY | 2024-02-29 21:06 | XMS_ITS | Continuity of Care Document ---
Author Organization [facility] Juan R lt Address [address] [place] [address]- Care Team Providers Care Production Operator Name Role Phone Teena Basilio Primary Care Physician [phone] [id number] Date(s): 01/10/24 - 02/09/24 [facility] Adult [address] [place] [address]- Encounter Type: Triage Allergies, Adverse Reactions, Alerts [...] immunization for day 3 2Result Comment: Lot #[id number] exp 01/03/12 Medications cloNIDine 0.1 mg oral tablet 1, tablet, By Mouth, 3 times a day, # 90 tablet, Refills 2, Tot. Refills 2, Maintenance, 01/15/24 12:52:00 PM EST, Route to Pharmacy Electronically, [facility]/pharmacy #[id number], 180, cm, 08/11/23 10:09:00 EDT,Height, 90.9, kg, 03/08/22 0:31:00 EST, Dry Weight Start Date: 01/15/24 Status: Ordered Quantity: 90.0 Unit: tablet Repeat number: 3 hydrOXYzine hydrochloride 50 mg oral tablet 1 tablet, By Mouth, 2 times a day, PRN NEEDED FOR ANXIETY, # 60 tablet, 5 Refills, Maintenance, 01/15/24 9:24:00 AM EST, [facility] STORE [id number], 180, cm, 08/11/23 10:09:00 EDT, Height, 90.9, [...] tablet, 2 Refills, Maintenance, 01/15/24 12:52:00 PM EST,[facility]/pharmacy #[id number], 180, cm, 08/11/23 10:09:00 EDT, Height, 90.9, kg, 03/08/22 0:31:00 EST, Dry Weight Start Date: 01/15/24 Status: Ordered Quantity: 30.0 Unit: tablet Repeat number: 3 omeprazole 20 mg oral enteric coated capsule 1 capsule = 20 mg, By Mouth, Daily, # 90 capsule, 1 Refills, Maintenance, 01/15/24 12:53:00 PM EST, EC Capsule, [facility]/pharmacy #[id number], Partial fill upon [...] 12:52:00 PM EST, Route to Pharmacy Electronically, [facility]/pharmacy #[id number], 180, cm, 08/11/23 10:09:00EDT, Height, 90.9, kg, 03/08/22 0:31:00 EST, Dry Weight Start Date: 01/15/24 Status: Ordered Quantity: 90.0 Unit: capsule Repeat number: 2 Ventolin HFA 108 mcg/inh inhalation aerosol with adapter 2 puffs, Inhalation, 4 times a day, PRN NEEDED FOR WHEEZING, # 18 each, 5 Refills, Maintenance, 01/15/24 12:53:00 PM EST, [facility]/pharmacy #[id number], 180, cm, 08/11/23 [...] Team Personnel Name: Kirti Charlton RN Position: [facility] RN Member Role: Primary Care Nurse Name: Brandan Lakhani RN Position: [facility] SN RN Member Role: Primary Care Nurse Name: Yaritza Woodard RN Position: [facility] RN Member Role: Primary Care Nurse Name: Cricket Nieto RN Position: [facility] RN Member Role: Primary Care Nurse Name: Beau Bell RN Position: [facility] RN Member Role: Primary Care Nurse Name: Sonia Hagan RN Position: [facility] RN Member Role: Primary Care Nurse Name: Rashi Broderick RN Position: [facility] RN Member Role: Primary Care Nurse Name: Teena Basilio Position: [facility] PCO Associate Professional Member Role: PCP Address: [address] [place] [id number] Telecom: Name: Joaquina Carbajal RN Position: [facility] RN Member Role: Primary Care Nurse Name: Charo Daily RN Position: [facility] RN Member Role: Primary Care Nurse Name: Danika Gonzales RN Position: [facility] RN Member Role: Primary Care Nurse Name: Alec Chiang RN Position: [facility] RN Member Role: Primary Care Nurse Care Team Related Persons Name: CARINE RODRIGUES Name: CARINE RODRIGUES Name: IBAN SOLORZANO Insurance Providers Guarantor name: JAYLEEN Health Plan Information #: 1 Payer: [facility] Member Number: NA Policy Number: NA Group Number: NA
--- OUTSIDE RECORDS SUMMARY | 2024-02-29 21:06 | XMS_ITS | Continuity of Care Document ---
Author Organization [facility] Juan R lt Address [address] [place] [address]- Care Team Providers Care Senior Test Engineer Name Role Phone Teena Basilio Primary Care Physician En[facility] [id number] Date(s): 01/15/24 - 02/14/24 [facility] Adult [address] [place] [address]- Encounter Type: Triage Allergies, Adverse Reactions, Alerts [...] immunization for day 3 2Result Comment: Lot #[id number] exp 01/03/12 Medications cloNIDine 0.1 mg oral tablet 1, tablet, By Mouth, 3 times a day, # 90 tablet, Refills 2, Tot. Refills 2, Maintenance, 01/15/24 12:52:00 PM EST, Route to Pharmacy Electronically, [facility]/pharmacy #[id number], 180, cm, 08/11/23 10:09:00 EDT,Height, 90.9, kg, 03/08/22 0:31:00 EST, Dry Weight Start Date: 01/15/24 Status: Ordered Quantity: 90.0 Unit: tablet Repeat number: 3 hydrOXYzine hydrochloride 50 mg oral tablet 1 tablet, By Mouth, 2 times a day, PRN NEEDED FOR ANXIETY, # 60 tablet, 5 Refills, Maintenance, 01/15/24 9:24:00 AM EST, [facility] STORE [id number], 180, cm, 08/11/23 10:09:00 EDT, Height, 90.9, [...] tablet, 2 Refills, Maintenance, 01/15/24 12:52:00 PM EST,[facility]/pharmacy #[id number], 180, cm, 08/11/23 10:09:00 EDT, Height, 90.9, kg, 03/08/22 0:31:00 EST, Dry Weight Start Date: 01/15/24 Status: Ordered Quantity: 30.0 Unit: tablet Repeat number: 3 omeprazole 20 mg oral enteric coated capsule 1 capsule = 20 mg, By Mouth, Daily, # 90 capsule, 1 Refills, Maintenance, 01/15/24 12:53:00 PM EST, EC Capsule, [facility]/pharmacy #[id number], Partial fill upon patient request if [...] 12:52:00 PM EST, Route to Pharmacy Electronically, [facility]/pharmacy #[id number], 180, cm, 08/11/23 10:09:00EDT, Height, 90.9, kg, 03/08/22 0:31:00 EST, Dry Weight Start Date: 01/15/24 Status: Ordered Quantity: 90.0 Unit: capsule Repeat number: 2 Ventolin HFA 108 mcg/inh inhalation aerosol with adapter 2 puffs, Inhalation, 4 times a day, PRN NEEDED FOR WHEEZING, # 18 each, 5 Refills, Maintenance, 01/15/24 12:53:00 PM EST, [facility]/pharmacy #[id number], 180, cm, 08/11/23 10:09:00 EDT, Height, [...] Team Personnel Name: Kirti Charlton RN Position: [facility] RN Member Role: Primary Care Nurse Name: Brandan Lakhani RN Position: [facility] SN RN Member Role: Primary Care Nurse Name: Yaritza Woodard RN Position: [facility] RN Member Role: Primary Care Nurse Name: Cricket Nieto RN Position: [facility] RN Member Role: Primary Care Nurse Name: Beau Bell RN Position: [facility] RN Member Role: Primary Care Nurse Name: Sonia Hagan RN Position: [facility] RN Member Role: Primary Care Nurse Name: Rashi Broderick RN Position: [facility] RN Member Role: Primary Care Nurse Name: Teena Basilio Position: [facility] PCO Associate Professional Member Role: PCP Address: [address] [place] [id number] Telecom: Name: Joaqunia Carbajal RN Position: [facility] RN Member Role: Primary Care Nurse Name: Charo Daily RN Position: [facility] RN Member Role: Primary Care Nurse Name: Danika Gonzales RN Position: [facility] RN Member Role: Primary Care Nurse Name: Alec Chiang RN Position: [facility] RN Member Role: Primary Care Nurse Care Team Related Persons Name: CARINE RODRIGUES Name: CARINE RODRIGUES Name: IBAN SOLORZANO Insurance Providers Guarantor name: JAYLEEN Health Plan Information #: 1 Payer: [facility] Member Number: NA Policy Number: NA Group Number: NA
--- OUTSIDE RECORDS SUMMARY | 2024-02-29 21:06 | XMS_ITS | Continuity of Care Document ---
Author Organization [facility] [place] Juan R lt Address [address] [place] [address]- Care Team Providers Care Wheelchair Driver Name Role Phone Teena Basilio Primary Care Physician En[place] [facility] Date(s): 01/12/24 - 02/11/24 [facility] [place] Adult [address] [place] [address]- Encounter Type: Triage Allergies, Adverse Reactions, Alerts [...] immunization for day 3 2Result Comment: Lot #[id number] exp 01/03/12 Medications cloNIDine 0.1 mg oral tablet 1, tablet, By Mouth, 3 times a day, # 90 tablet, Refills 2, Tot. Refills 2, Maintenance, 01/15/24 12:52:00 PM EST, Route to Pharmacy Electronically, [facility]/pharmacy #[id number], 180, cm, 08/11/23 10:09:00 EDT,Height, 90.9, kg, 03/08/22 0:31:00 EST, Dry Weight Start Date: 01/15/24 Status: Ordered Quantity: 90.0 Unit: tablet Repeat number: 3 hydrOXYzine hydrochloride 50 mg oral tablet 1 tablet, By Mouth, 2 times a day, PRN NEEDED FOR ANXIETY, # 60 tablet, 5 Refills, Maintenance, 01/15/24 9:24:00 AM EST, [facility] STORE [id number], 180, cm, 08/11/23 10:09:00 EDT, Height, 90.9, [...] tablet, 2 Refills, Maintenance, 01/15/24 12:52:00 PM EST,[facility]/pharmacy #[id number], 180, cm, 08/11/23 10:09:00 EDT, Height, 90.9, kg, 03/08/22 0:31:00 EST, Dry Weight Start Date: 01/15/24 Status: Ordered Quantity: 30.0 Unit: tablet Repeat number: 3 omeprazole 20 mg oral enteric coated capsule 1 capsule = 20 mg, By Mouth, Daily, # 90 capsule, 1 Refills, Maintenance, 01/15/24 12:53:00 PM EST, EC Capsule, [facility]/pharmacy #[id number], Partial fill upon patient request if [...] 12:52:00 PM EST, Route to Pharmacy Electronically, [facility]/pharmacy #[id number], 180, cm, 08/11/23 10:09:00EDT, Height, 90.9, kg, 03/08/22 0:31:00 EST, Dry Weight Start Date: 01/15/24 Status: Ordered Quantity: 90.0 Unit: capsule Repeat number: 2 Ventolin HFA 108 mcg/inh inhalation aerosol with adapter 2 puffs, Inhalation, 4 times a day, PRN NEEDED FOR WHEEZING, # 18 each, 5 Refills, Maintenance, 01/15/24 12:53:00 PM EST, [facility]/pharmacy #[id number], 180, cm, 08/11/23 10:09:00 EDT, Height, [...] PCO Associate Professional Member Role: PCP Address: [address] [place] [address] [id number] Telecom: Name: Joaquina Carbajal RN [...] Plan Information #: 1 Payer: [facility] Member Number: NA Policy Number: NA Group Number: NA
--- OUTSIDE RECORDS SUMMARY | 2024-02-29 21:06 | XMS_ITS | Continuity of Care Document ---
Author Organization [facility] Juan R lt Address [address] [place] [address]- Care Team Providers Care Financial Analyst Accountant Name Role Phone Teena Basilio Primary Care Physician [id number] Date(s): 01/15/24 - 02/14/24 [facility] Adult [address] [place] [address]- Encounter Type: Triage Allergies, Adverse Reactions, Alerts [...] immunization for day 3 2Result Comment: Lot #[id number] exp 01/03/12 Medications cloNIDine 0.1 mg oral tablet 1, tablet, By Mouth, 3 times a day, # 90 tablet, Refills 2, Tot. Refills 2, Maintenance, 01/15/24 12:52:00 PM EST, Route to Pharmacy Electronically, [facility]/pharmacy #[id number], 180, cm, 08/11/23 10:09:00 EDT,Height, 90.9, kg, 03/08/22 0:31:00 EST, Dry Weight Start Date: 01/15/24 Status: Ordered Quantity: 90.0 Unit: tablet Repeat number: 3 hydrOXYzine hydrochloride 50 mg oral tablet 1 tablet, By Mouth, 2 times a day, PRN NEEDED FOR ANXIETY, # 60 tablet, 5 Refills, Maintenance, 01/15/24 9:24:00 AM EST, [facility] STORE [id number], 180, cm, 08/11/23 10:09:00 EDT, Height, 90.9, [...] tablet, 2 Refills, Maintenance, 01/15/24 12:52:00 PM EST,[facility]/pharmacy #[id number], 180, cm, 08/11/23 10:09:00 EDT, Height, 90.9, kg, 03/08/22 0:31:00 EST, Dry Weight Start Date: 01/15/24 Status: Ordered Quantity: 30.0 Unit: tablet Repeat number: 3 omeprazole 20 mg oral enteric coated capsule 1 capsule = 20 mg, By Mouth, Daily, # 90 capsule, 1 Refills, Maintenance, 01/15/24 12:53:00 PM EST, EC Capsule, [facility]/pharmacy #[id number], Partial fill upon patient request if [...] 12:52:00 PM EST, Route to Pharmacy Electronically, [facility]/pharmacy #[id number], 180, cm, 08/11/23 10:09:00EDT, Height, 90.9, kg, 03/08/22 0:31:00 EST, Dry Weight Start Date: 01/15/24 Status: Ordered Quantity: 90.0 Unit: capsule Repeat number: 2 Ventolin HFA 108 mcg/inh inhalation aerosol with adapter 2 puffs, Inhalation, 4 times a day, PRN NEEDED FOR WHEEZING, # 18 each, 5 Refills, Maintenance, 01/15/24 12:53:00 PM EST, [facility]/pharmacy #[id number], 180, cm, 08/11/23 10:09:00 EDT, Height, [...] Team Personnel Name: Kirti Charlton RN Position: [facility] RN Member Role: Primary Care Nurse Name: Brandan Lakhani RN Position: [facility] SN RN Member Role: Primary Care Nurse Name: Yaritza Woodard RN Position: [facility] RN Member Role: Primary Care Nurse Name: Cricket Nieto RN Position: [facility] RN Member Role: Primary Care Nurse Name: Beau Bell RN Position: [facility] RN Member Role: Primary Care Nurse Name: Sonia Hagan RN Position: [facility] RN Member Role: Primary Care Nurse Name: Rashi Broderick RN Position: [facility] RN Member Role: Primary Care Nurse Name: Teena Basilio Position: [facility] PCO Associate Professional Member Role: PCP Address: [address] [place] [id number] Telecom: Name: Joaquina Carbajal RN Position: [facility] RN Member Role: Primary Care Nurse Name: Charo Daily RN Position: [facility] RN Member Role: Primary Care Nurse Name: Danika Gonzales RN Position: [facility] RN Member Role: Primary Care Nurse Name: Alec Chiang RN Position: [facility] RN Member Role: Primary Care Nurse Care Team Related Persons Name: CARINE RODRIGUES Name: CARINE RODRIGUES Name: IBAN SOLORZANO Insurance Providers Guarantor name: JAYLEEN Health Plan Information #: 1 Payer: [facility] Member Number: NA Policy Number: NA Group Number: NA
--- OUTSIDE RECORDS SUMMARY | 2024-02-29 21:06 | XMS_ITS | Continuity of Care Document ---
Author Organization [facility] Juan R lt Address [address] [place] [address]- Care Team Providers Care Recreation Activities Coordinator Name Role Phone Teena Basilio Primary Care Physician Encounter [facility] Date(s): 01/12/24 - 02/11/24 [facility] Adult [address] [place] [address]- Encounter Type: Triage Allergies, Adverse Reactions, Alerts [...] immunization for day 3 2Result Comment: Lot #[id number] exp 01/03/12 Medications cloNIDine 0.1 mg oral tablet 1, tablet, By Mouth, 3 times a day, # 90 tablet, Refills 2, Tot. Refills 2, Maintenance, 01/15/24 12:52:00 PM EST, Route to Pharmacy Electronically, [facility]/pharmacy #[id number], 180, cm, 08/11/23 10:09:00 EDT,Height, 90.9, kg, 03/08/22 0:31:00 EST, Dry Weight Start Date: 01/15/24 Status: Ordered Quantity: 90.0 Unit: tablet Repeat number: 3 hydrOXYzine hydrochloride 50 mg oral tablet 1 tablet, By Mouth, 2 times a day, PRN NEEDED FOR ANXIETY, # 60 tablet, 5 Refills, Maintenance, 01/15/24 9:24:00 AM EST, [facility] STORE [id number], 180, cm, 08/11/23 10:09:00 EDT, Height, 90.9, [...] tablet, 2 Refills, Maintenance, 01/15/24 12:52:00 PM EST,[facility]/pharmacy #[id number], 180, cm, 08/11/23 10:09:00 EDT, Height, 90.9, kg, 03/08/22 0:31:00 EST, Dry Weight Start Date: 01/15/24 Status: Ordered Quantity: 30.0 Unit: tablet Repeat number: 3 omeprazole 20 mg oral enteric coated capsule 1 capsule = 20 mg, By Mouth, Daily, # 90 capsule, 1 Refills, Maintenance, 01/15/24 12:53:00 PM EST, EC Capsule, [facility]/pharmacy #[id number], Partial fill upon patient request if [...] 12:52:00 PM EST, Route to Pharmacy Electronically, [facility]/pharmacy #[id number], 180, cm, 08/11/23 10:09:00EDT, Height, 90.9, kg, 03/08/22 0:31:00 EST, Dry Weight Start Date: 01/15/24 Status: Ordered Quantity: 90.0 Unit: capsule Repeat number: 2 Ventolin HFA 108 mcg/inh inhalation aerosol with adapter 2 puffs, Inhalation, 4 times a day, PRN NEEDED FOR WHEEZING, # 18 each, 5 Refills, Maintenance, 01/15/24 12:53:00 PM EST, [facility]/pharmacy #[id number], 180, cm, 08/11/23 10:09:00 EDT, Height, [...] Team Personnel Name: Kirti Charlton RN Position: [facility] RN Member Role: Primary Care Nurse Name: Brandan Lakhani RN Position: [facility] SN RN Member Role: Primary Care Nurse Name: Yaritza Woodard RN Position: [facility] RN Member Role: Primary Care Nurse Name: Cricket Nieto RN Position: [facility] RN Member Role: Primary Care Nurse Name: Beau Bell RN Position: [facility] RN Member Role: Primary Care Nurse Name: Sonia Hagan RN Position: [facility] RN Member Role: Primary Care Nurse Name: Rashi Broderick RN Position: [facility] RN Member Role: Primary Care Nurse Name: Teena Basilio Position: [facility] PCO Associate Professional Member Role: PCP Address: [address] [place] [id number] Telecom: Name: Joaquina Carbajal RN Position: [facility] RN Member Role: Primary Care Nurse Name: Charo Daily RN Position: [facility] RN Member Role: Primary Care Nurse Name: Danika Gonzales RN Position: [facility] RN Member Role: Primary Care Nurse Name: Alec Chiang RN Position: [facility] RN Member Role: Primary Care Nurse Care Team Related Persons Name: CARINE RODRIGUES Name: CARINE RODRIGUES Name: IBAN SOLORZANO Insurance Providers Guarantor name: JAYLEEN Health Plan Information #: 1 Payer: [facility] Member Number: NA Policy Number: NA Group Number: NA
--- OUTSIDE RECORDS SUMMARY | 2024-02-29 21:06 | XMS_ITS | Continuity of Care Document ---
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 Refills 2, Maintenance, 01/15/24 12:52:00 PM EST, Route to Pharmacy Electronically, [facility]/pharmacy #[id number], 180, cm, 08/11/23 10:09:00 EDT,Height, 90.9, kg, 03/08/22 0:31:00 EST, Dry Weight Start Date: 01/15/24 Status: Ordered Quantity: 90.0 Unit: tablet Repeat number: 3 hydrOXYzine hydrochloride 50 mg oral tablet 1 tablet, By Mouth, 2 times a day, PRN NEEDED FOR ANXIETY, # 60 tablet, 5 Refills, Maintenance, 01/15/24 9:24:00 AM EST, [facility] [id number], 180, cm, 08/11/23 10:09:00 EDT, Height, 90.9, [...] tablet, 2 Refills, Maintenance, 01/15/24 12:52:00 PM EST,[facility]/pharmacy #[id number], 180, cm, 08/11/23 10:09:00 EDT, Height, 90.9, kg, 03/08/22 0:31:00 EST, Dry Weight Start Date: 01/15/24 Status: Ordered Quantity: 30.0 Unit: tablet Repeat number: 3 omeprazole 20 mg oral enteric coated capsule 1 capsule = 20 mg, By Mouth, Daily, # 90 capsule, 1 Refills, Maintenance, 01/15/24 12:53:00 PM EST, EC Capsule, [facility]/pharmacy #[id number], Partial fill upon patient request if [...] 12:52:00 PM EST, Route to Pharmacy Electronically, [facility]/pharmacy #[id number], 180, cm, 08/11/23 10:09:00EDT, Height, 90.9, kg, 03/08/22 0:31:00 EST, Dry Weight Start Date: 01/15/24 Status: Ordered Quantity: 90.0 Unit: capsule Repeat number: 2 Ventolin HFA 108 mcg/inh inhalation aerosol with adapter 2 puffs, Inhalation, 4 times a day, PRN NEEDED FOR WHEEZING, # 18 each, 5 Refills, Maintenance, 01/15/24 12:53:00 PM EST, [facility]/pharmacy #[id number], 180, cm, 08/11/23 10:09:00 EDT, Height, [...] Team Personnel Name: Kirti Charlton RN Position: [facility] RN Member Role: Primary Care Nurse Name: Brandan Lakhani RN Position: [facility] SN RN Member Role: Primary Care Nurse Name: Yaritza Woodard RN Position: [facility] RN Member Role: Primary Care Nurse Name: Cricket Nieto RN Position: S RN Member Role: Primary Care Nurse Name: Beau Bell RN Position: S RN Member Role: Primary Care Nurse Name: Sonia Hagan RN Position: S RN Member Role: Primary Care Nurse Name: Rashi Broderick RN Position: [facility] RN Member Role: Primary Care Nurse Name: Teena Basilio Position: [facility] PCO Associate Professional Member Role: PCP Address: [address] [place] [id number] Telecom: Name: Joaquina Carbajal RN Position: [facility] RN Member Role: Primary Care Nurse Name: Chrao Daily RN Position: [facility] RN Member Role: Primary Care Nurse Name: Danika Gonzales RN Position: [facility] RN Member Role: Primary Care Nurse Name: Alec Chiang RN Position: [facility] RN Member Role: Primary Care Nurse Care Team Related Persons Name: CARINE RODRIGUES Name: CARINE RODRIGUES Name: IBAN SOLORZANO Insurance Providers Guarantor name: JAYLEEN Health Plan Information #: 1 Payer: [facility] Member Number: NA Policy Number: NA Group Number: NA
== END 2024-02-29 17:55 | disposition short-term general hospital (02) ==
PROVIDERS: Physician Assistant Medical; Emergency Provider Emergency Medicine
DX: S27.1XXA Traumatic hemothorax, initial encounter (principal); S21.312A Laceration without foreign body of left front wall of thorax with penetration into thoracic cavity, initial encounter; S31.611A Laceration without foreign body of abdominal wall, left upper quadrant with penetration into peritoneal cavity, initial encounter; R06.02 Shortness of breath; J98.11 Atelectasis; D50.0 Iron deficiency anemia secondary to blood loss (chronic); R07.89 Other chest pain; R10.2 Pelvic and perineal pain; M79.602 Pain in left arm; F11.90 Opioid use, unspecified, uncomplicated; F17.210 Nicotine dependence, cigarettes, uncomplicated; X99.1XXA Assault by knife, initial encounter; Y93.89 Activity, other specified; Y92.89 Other specified places as the place of occurrence of the external cause; Y99.8 Other external cause status; Z79.899 Other long term (current) drug therapy
CPT/HCPCS: 31500; 32555; 36415; 36430; 36556; 71045; 80053; 85025; 85610; 85730; 86850; 86900; 86901; 86920; 96374; 96375; 96376; 99285; 99291; J0330; J0690; J2250; P9016

== ENCOUNTER → 2024-02-29 16:53 | Outpatient (BNV) | payer OTHER, SELFPAY | PROVIDERS: Emergency Provider Emergency Medicine; Visit Provider Radiology Diagnostic Radiology | DX: J93.9 Pneumothorax, unspecified (principal); Z46.82 Encounter for fitting and adjustment of non-vascular catheter | CPT/HCPCS: 71045 ==

== ENCOUNTER 2024-07-13 11:17 | Emergency (ER) | payer OTHER, SELFPAY ==
--- NOTE | ~2024-07-13 | XR_ITS ---
CLINICAL HISTORY: pain, injury 2 view right tibia-fibula Comparison: None Findings No fracture or malalignment. Ovoid benign bone island within the medial proximal tibial metaphysis. No radiopaque foreign body. IMPRESSION: No acute findings. This document has been electronically signed by: Eliu Harmon DO on 07/13/2024 12:35:33
--- NOTE | ~2024-07-13 | CT_ITS ---
CLINICAL HISTORY: Trauma, large effusion CT right knee without contrast Comparison: 07/13/2024 Findings: There is a moderate knee effusion. No obvious associated fat component. There is a small focus of cortical irregularity involving the articular surface of the lateral femoral condyle. There is no displaced fracture. There is no dislocation. There is no soft tissue hematoma or radiopaque foreign body. A bone island is incidentally noted within the proximal tibia. Impression: 1. Moderate knee effusion. 2. Small focus of cortical irregularity of the articular surface of the lateral femoral condyle could represent an impaction type injury. An injury to this location is sometimes associated with injury to the anterior cruciate ligament. This could be further evaluated with MRI. This document has been electronically signed by: Chante Stanton MD on 07/13/2024 14:13:26
--- NOTE | ~2024-07-13 | XR_ITS ---
CLINICAL HISTORY: pain, injury 3 view right elbow Comparison: None Findings: No fracture or malalignment. No significant osteoarthritis. No elbow joint effusion. IMPRESSION: No acute findings. This document has been electronically signed by: Eliu Harmon DO on 07/13/2024 12:32:56
--- NOTE | ~2024-07-13 | XR_ITS ---
CLINICAL HISTORY: pain, injury 2 view right femur Comparison: None Findings: No fracture or malalignment. No significant osteoarthritis. No radiopaque foreign body. IMPRESSION: No acute findings. This document has been electronically signed by: Eliu Harmon DO on 07/13/2024 12:30:55
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
[2024-07-13 11:25] VITALS: BP 113/74; PULSE 84; RESP 20; TEMP 36.7; O2SAT 96; BMI 25.1
[2024-07-13 12:11] VITALS: BP 102/64
[2024-07-13] MEDS: hydrOXYzine HCL 50 MG TABLET PO (12:11)
[2024-07-13] MEDS: cloNIDine HCL 0.1 MG TABLET PO (12:11)
[2024-07-13 12:29] VITALS: BP 117/61; PULSE 64; RESP 20; TEMP 36.1; O2SAT 94
--- NOTE | 2024-07-13 12:34 | MHC.EDTECH ---
PUT PT ON A NASAL CANNULA WITH 2L OF OXYGEN. PTS O2 WAS GOIGN DOWN TO THE 80s WITH SLEEPING RN IS AWARE!
[2024-07-13 14:33] VITALS: BP 117/61; PULSE 64; RESP 20; TEMP 36.1; O2SAT 94
== END 2024-07-13 14:35 | disposition home or self-care (01) ==
PROVIDERS: Emergency Provider Emergency Medicine; PCP Family Medicine
DX: S80.01XA Contusion of right knee, initial encounter (principal); S50.311A Abrasion of right elbow, initial encounter; V18.0XXA Pedal cycle driver injured in noncollision transport accident in nontraffic accident, initial encounter; M25.461 Effusion, right knee; M25.561 Pain in right knee; M25.521 Pain in right elbow; Y93.55 Activity, bike riding; Y92.414 Local residential or business street as the place of occurrence of the external cause; Y99.8 Other external cause status; F19.10 Other psychoactive substance abuse, uncomplicated; F17.210 Nicotine dependence, cigarettes, uncomplicated
CPT/HCPCS: 73080; 73552; 73590; 73700; 99284

== ENCOUNTER → 2024-07-13 11:27 | Outpatient (BNV) | payer OTHER, SELFPAY | PROVIDERS: Emergency Provider Emergency Medicine; PCP Family Medicine; Visit Provider Radiology Diagnostic Radiology | DX: M25.461 Effusion, right knee (principal); M25.521 Pain in right elbow | CPT/HCPCS: 73080; 73552; 73590; 73700 ==

== ENCOUNTER 2024-07-19 14:45 | Outpatient (REF) | payer OTHER, SELFPAY ==
--- OUTSIDE RECORDS SUMMARY | 2024-07-19 14:47 | XMS_ITS | Clinical Summary ---
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 Name Role Phone Unavailable Primary Care Provider Unavailabl e Social History Tobacco Use Types Packs/Day Years Used Date Smoking Tobacco: Never Assessed Sex and Gender Information Value Date Recorded Sex Assigned at Not on file Legal Sex Male 3:42 PM EDT Gender Identity Not on file Sexual Orientation Not on file Plan of Treatment Health Maintenance Due Date Last Done Comments DTaP,Tdap,and Td Vaccines (1 - Tdap) 2008 Hepatitis B Vaccines (1 of 3 - 19+ 3-dose series) 2008 COVID-19 Vaccine (2023-2 5 season) 2023 Depression Screening 12/10/2023 HIV Screening 12/10/2023 Hepatitis C Screening 12/10/2023 Social Influencers of Health Screening 12/10/2023 Influenza Vaccine (Season Ended) 2024 HIB Vaccines Aged Out No longer eligi ble based on patient's age to complete this topic HPV Vaccines Aged Out No longer eligi ble based on patient's age to complete this topic Hepatitis A Vaccines Aged Out No long er eligible based on patient's age to complete this topic IPV Vaccines Aged Out No longer eligi ble based on patient's age to complete this topic MMR Vaccines Aged Out No longer eligi ble based on patient's age to complete this topic Meningococcal ACWY Vaccine Aged Out N o longer eligible based on patient's age to complete this topic Meningococcal B Vaccine Aged Out No l onger eligible based on patient's age to complete this topic Pneumococcal Vaccine: Pediat rics (0 to 5 Years) and At-Risk Patients (6 to 64 Years) Aged Out No longer eligible b ased on patient's age to complete this topic RSV Immunization Patients Un silvino 20 months Aged Out No longer eligible b ased on patient's age to complete this topic Varicella Vaccines Aged Out No longer eligible based on patient's age to complete this topic
== END 2024-07-19 14:46 | disposition home or self-care (01) ==
LOC: HO.HOSX 14:45
PROVIDERS: Visit Provider Physician Assistant
DX: Z13.89 Encounter for screening for other disorder (principal)

== ENCOUNTER 2024-07-23 10:00 | Outpatient (REF) | payer OTHER, SELFPAY ==
--- NOTE | ~2024-07-23 | XR_ITS ---
CLINICAL HISTORY: M25.569 - Pain in unspecified knee 3 view right knee Comparison: CT/SR - CT KNEE RT WO IV CON - 07/13/24 13:03 EDT Findings: No fractures or dislocations. No significant loss of joint space, osteophytes, or erosions. Small joint effusion. No radiopaque foreign body. IMPRESSION: 1. No evidence of acute fracture or dislocation. Small joint effusion. This document has been electronically signed by: Kelby Wilkins MD on 07/23/2024 22:49:50
--- OUTSIDE RECORDS SUMMARY | 2024-07-24 11:11 | XMS_ITS | Clinical Summary ---
Author Organization [facility] Address [address] [place] [address] Phone Care Team Providers Care Crossing Flagman Name Role Phone Unavailable Primary Care Provider [...]
== END 2024-07-23 10:01 | disposition home or self-care (01) ==
LOC: HO.HOSX 10:00
PROVIDERS: Visit Provider Physician Assistant
DX: S83.511A Sprain of anterior cruciate ligament of right knee, initial encounter (principal)
CPT/HCPCS: 73562; 99212

== ENCOUNTER → 2024-07-23 12:38 | Outpatient (BNV) | payer OTHER, SELFPAY | PROVIDERS: Visit Provider Student in an Organized Health Care Education/Training Program | DX: M25.461 Effusion, right knee (principal) | CPT/HCPCS: 73562 ==

== ENCOUNTER 2024-07-23 13:05 | Outpatient (AMB) | payer OTHER, SELFPAY ==
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
[2024-07-23 13:14] VITALS: BMI 25.1
--- OUTSIDE RECORDS SUMMARY | 2024-07-23 15:23 | XMS_ITS | Clinical Summary ---
Author Organization [facility] Address [address] [place] [address] Phone Care Team Providers Care Veneer Jointer Returner Name Role Phone Unavailable Primary Care Provider [...]
== END 2024-07-23 14:26 | disposition home or self-care (01) ==
LOC: HO.HOS 13:05
PROVIDERS: PCP Family Medicine; Visit Provider Physician Assistant
DX: S83.511A Sprain of anterior cruciate ligament of right knee, initial encounter (principal)
CPT/HCPCS: 99214

== ENCOUNTER 2024-07-25 08:57 | Outpatient (REF) | payer OTHER, SELFPAY ==
--- OUTSIDE RECORDS SUMMARY | 2024-07-26 09:20 | XMS_ITS | Clinical Summary ---
Author Organization [facility] Address [address] [place] [address] Phone Care Team Providers Care Car Repossessor Name Role Phone Unavailable Primary Care Provider [...]
== END 2024-07-25 08:58 | disposition home or self-care (01) ==
LOC: HO.HOSX 08:57
PROVIDERS: Visit Provider Physician Assistant
DX: Z13.89 Encounter for screening for other disorder (principal)

== ENCOUNTER 2024-07-26 11:54 | Outpatient (AMB) | payer OTHER, SELFPAY ==
--- NOTE | 2024-07-26 12:18 | A.OFFVIS_ITS ---
Intake Visit Reasons: OV-right knee aspiration Intake Note: Ced is a 33 year old male right hand dominant who presents today for a aspiration of his right knee pain. Patient states he is having a lot of pain in his knee. Allergies No Known Allergies [No Known Allergies*] Allergy (Verified 07/26/24 16:12) HPI HPI OV-right knee aspiration: Details: Mr. Rascon is a 33-year-old male who presents to the office today for right knee aspiration status post injury. He is scheduled for his stat MRI after his appointment this morning. He continues to have pain and difficulty with ambulation. PFSH Medical History Opioid use disorder Alcohol withdrawal COVID-19 vaccine series completed IV drug abuse Alcohol abuse Surgical History Hx of tooth extraction History of tonsillectomy Social History (Updated 07/23/24 @ 13:21 by Ivania Newby, CCT-A) Household Members: Other Household Members Other:: mother Housing: House Are you a primary patient care to a significant other at home: No Do you presently have visiting nurse or other home services: No Alcohol intake: current Alcohol intake frequency: 3 or more drinks per day Alcohol type: hard liquor Patient Tobacco Use Status: Current everyday Tobacco user Tobacco use type: Cigarette Cigarettes Per Day: 20 Years Smoked: 13 e-Cigarette/Vaping Use: Never Used Second Hand Smoke Exposure: No Substance Use Type: Crack/Cocaine, Marijuana and Other Advance Directives: Yes Advance Directives on File: Yes Advance Directives Date on File: 01/05/24 Do you have a plan to hurt others: No Plan service: No Current occupational status: unemployed Review of Systems Const All systems reviewed & are unremarkable except as noted in HPI and below Physical Exam Const General: cooperative, healthy appearing and no acute distress Resp Effort & Inspection: normal respiratory effort and able to speak in complete sentences Extrem Other: Right knee moderate effusion but has slightly improved since his last visit.. Global tenderness to palpation. Range of motion is 20-45 degrees. Unable to assess anterior drawer due to patient guarding, range of motion restrictions and pain. NVI. Assessment & Plan Assessment & Plan (1) ACL (anterior cruciate ligament) rupture: Code(s): S83.519A - Sprain of anterior cruciate ligament of unspecified knee, initial encounter Category: Medical Plan Mr. Rascon is a 33-year-old male who presents to the office today for right knee aspiration status post injury. He is scheduled for his stat MRI after his appointment this morning. He continues to have pain and difficulty with ambulation. While the office today I re offered the patient a right knee aspiration for diagnostic and therapeutic assessment. The patient was explained the risks, benefits, and alternatives to aspirating the right knee. After receiving consent for the aspiration, the patient had the procedure done while in the office today. The patient tolerated the procedure well with pain. Roughly 10 cc of bloody aspirate was obtained. He will attend his MRI later today in follow-up after the results forDefinitive treatment plan. Right knee MRI IMPRESSION: There is a buckle handle tear of the lateral meniscus. Meniscus is displaced into the anterior joint. Displaced meniscus is slightly larger than the still intact meniscus. There is a horizontal tear of the posterior horn medial meniscus extending to the tibial undersurface. ACL is torn with associated kissing contusion. Additionally, there is a full- thickness fissure through the articular cartilage of the anterior notch of the lateral femoral condyle. There is a grade 2 sprain of PCL. Grade 1 and grade 2 strain of multiple muscle groups, detailed above and soft tissues. There is a joint effusion with intra-articular bodies, one in the lateral recess at the level patella and in the suprapatellar patch deep to distal quadriceps tendon. There is no large chondral defect to suggest these are displaced articular cartilage. Small focal grade 2 sprain of proximal anterior superficial MCL. There is a tear through the deep MCL, meniscal femoral component. (patient called on 07/29/2024 for telehealth to review MRI results.) Coding Level of Care Code Est Pt Level 3 (38416) Diagnoses ACL (anterior cruciate ligament) rupture S83.519A
== END 2024-07-26 12:18 | disposition home or self-care (01) ==
LOC: HO.HOS 11:55
PROVIDERS: PCP Family Medicine; Visit Provider Physician Assistant
DX: S83.512A Sprain of anterior cruciate ligament of left knee, initial encounter (principal); S83.251A Bucket-handle tear of lateral meniscus, current injury, right knee, initial encounter; M25.461 Effusion, right knee
CPT/HCPCS: 20610; 99213

== ENCOUNTER 2024-07-26 12:20 | Emergency (ER) | payer OTHER, SELFPAY ==
--- NOTE | 2024-07-26 13:28 | ED_ITS ---
HPI - Extremity Injury (Lower) General Chief Complaint: General Medical Stated Complaint: Knee pain Time Seen by Provider: 07/26/24 13:40 Related Data Home Medications ?Medication ?Instructions ?Recorded ?Confirmed clonidine HCl 0.1 mg tablet 0.1 mg PO TID PRN Anxiety 06/07/22 01/03/24 hydroxyzine HCl 50 mg tablet 50 mg PO BID PRN anxiety 06/07/22 01/03/24 omeprazole 20 mg tablet,delayed 20 mg PO DAILY@0630 PRN Heartburn 06/07/22 01/03/24 release prazosin 1 mg capsule 1 mg PO BEDTIME 06/07/22 01/03/24 mirtazapine 45 mg tablet 45 mg PO BEDTIME 07/21/23 01/03/24 methadone 10 mg/mL oral concentrate 210 mg PO DAILY 07/22/23 01/03/24 albuterol sulfate 90 mcg/actuation 2 puff inhalation QID PRN wheezing 01/03/24 01/03/24 aerosol inhaler (Ventolin HFA) Previous Rx's ?Medication ?Instructions ?Recorded ibuprofen 800 mg tablet 800 mg PO TID PRN pain 30 days #90 07/25/24 tabs Allergies Allergy/AdvReac Type Severity Reaction Status Date / Time No Known Allergies Allergy Verified 07/26/24 16:01 [No Known Allergies*] PMFSH Past Medical History Medical History Opioid use disorder Alcohol withdrawal COVID-19 vaccine series completed IV drug abuse Alcohol abuse Surgical History Hx of tooth extraction History of tonsillectomy Social History Social History (Updated 07/23/24 @ 13:21 by Ivania Newby CCT-A) Household Members: Other Household Members Other:: mother Housing: House Are you a primary furnace caretaker to a significant other at home: No Do you presently have visiting nurse or other home services: No Alcohol intake: current Alcohol intake frequency: 3 or more drinks per day Alcohol type: hard liquor Patient Tobacco Use Status: Current everyday Tobacco user Tobacco use type: Cigarette Cigarettes Per Day: 20 Years Smoked: 13 e-Cigarette/Vaping Use: Never Used Second Hand Smoke Exposure: No Substance Use Type: Crack/Cocaine, Marijuana and Other service: No Current occupational status: unemployed Physical Exam Vital Signs: Vital Signs: Last Vital Signs Temp 98.6 F 07/26/24 13:29 Pulse 103 H 07/26/24 13:29 Resp 18 07/26/24 13:29 BP 133/88 07/26/24 13:29 Pulse Ox 94 07/26/24 13:29 O2 Del Method Room Air 07/26/24 13:29 BMI result Body Mass Index 25.0 Course Course Course Narrative: This is an RME: Additional HPI, ROS, PE not included below will be deferred to primary provider. RME assessment and note performed by: Madison Rodriguez PA-C This is a 54-oaen-pji-male who presents to the ER for methadone dosing. Reports that he failed his drug testing today and was told that he could not be dosed for methadone. He states that he failed his drug testing as he brushed his teeth and the alcohol was detected in his breathalyzer. He is scheduled to get MRI for his knee at 3pm. Plan: Give methadone dose >>multiple attempts made to [facility] for methadone confirmation. >> Patient left without completing treatment as he had an MRI at 3pm. Discharge Plan Discharge Clinical Impression: Methadone dependence Patient Disposition: Left W/O Completing Treatment Prescriptions: No Action ibuprofen 800 mg tablet 800 mg PO TID PRN (Reason: pain) 30 Days Qty: 90 0RF albuterol sulfate [Ventolin HFA] 90 mcg/actuation HFA aerosol inhaler 2 puff inhalation QID PRN (Reason: wheezing) mirtazapine 45 mg tablet 45 mg PO BEDTIME methadone 10 mg/mL Concentrate 210 mg PO DAILY omeprazole 20 mg tablet,delayed release (DR/EC) 20 mg PO DAILY@0630 PRN (Reason: Heartburn) clonidine HCl 0.1 mg tablet 0.1 mg PO TID PRN (Reason: Anxiety) Rx Instructions: in the morning, noon, at bedtime hydroxyzine HCl 50 mg tablet 50 mg PO BID PRN (Reason: anxiety) Rx Instructions: in the morning and at noon prazosin 1 mg capsule 1 mg PO BEDTIME Discharge Date/Time: 07/26/24 14:50
[2024-07-26 13:29] VITALS: BP 133/88; PULSE 103; RESP 18; TEMP 37; O2SAT 94; BMI 25.0
--- NOTE | 2024-07-26 14:18 | PC.NURSE ---
Called [facility] several times and unable to connect with anyone. Spoke to someone at the admissions dept and stated they would send a message to have the clinic call [facility] ED to verify methadone.
--- NOTE | 2024-07-26 14:39 | PC.NURSE ---
attempting to call [facility] of [facility] for methadone dose. Awaiting return call.
--- NOTE | 2024-07-26 14:48 | PC.NURSE ---
left departmentto have outpatient MRI. will rturn for methadone dose
== END 2024-07-26 14:50 | disposition left against medical advice (07) ==
PROVIDERS: Emergency Provider Emergency Medicine Emergency Medical Services; PCP Family Medicine
DX: F11.20 Opioid dependence, uncomplicated (principal); M25.569 Pain in unspecified knee
CPT/HCPCS: 99281

== ENCOUNTER 2024-07-26 14:56 | Outpatient (REF) | payer OTHER, SELFPAY ==
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
== END 2024-07-26 14:57 | disposition home or self-care (01) ==
LOC: HO.MRI 14:56
PROVIDERS: Visit Provider Physician Assistant
DX: S83.511D Sprain of anterior cruciate ligament of right knee, subsequent encounter (principal)
CPT/HCPCS: 73721

== ENCOUNTER → 2024-07-26 15:03 | Outpatient (BNV) | payer OTHER, SELFPAY | PROVIDERS: Visit Provider Radiology Diagnostic Radiology | DX: M25.561 Pain in right knee (principal) | CPT/HCPCS: 73721 ==

== ENCOUNTER 2024-07-26 15:40 | Emergency (ER) | payer OTHER, SELFPAY ==
[2024-07-26 16:01] VITALS: BP 145/67; PULSE 80; RESP 16; TEMP 36.9; O2SAT 99; BMI 24.4
--- NOTE | 2024-07-26 16:15 | ED_ITS ---
HPI - General Adult General Chief complaint: General Medical Stated complaint: medication confirmation Time Seen by Provider: 07/26/24 18:12 Source: patient and RN notes reviewed Mode of arrival: ambulatory Limitations: no limitations History of Present Illness ED Provider: Madison Rodriguez PA-C HPI narrative: This is a 33-year-old male who presents emergency department for methadone dosi ng. Patient reports that this morning he went to his methadone Clinic however they denied giving him his methadone dose as he failed his Breathalyzer test. He states that he uses tooth paste that had alcohol in it therefore he failed. He also had an MRI scheduled for 3:00 a.m. this afternoon. He states that he reported earlier today however was not able to be dose therefore he is here now to be dose. Patient is feeling well, no current complaints. MD complaint: Methadone dose Relieving factors: none Exacerbating factors: none Treatments prior to arrival: none Related Data Home Medications ?Medication ?Instructions ?Recorded ?Confirmed clonidine HCl 0.1 mg tablet 0.1 mg PO TID PRN Anxiety 06/07/22 01/03/24 hydroxyzine HCl 50 mg tablet 50 mg PO BID PRN anxiety 06/07/22 01/03/24 omeprazole 20 mg tablet,delayed 20 mg PO DAILY@0630 PRN Heartburn 06/07/22 01/03/24 release prazosin 1 mg capsule 1 mg PO BEDTIME 06/07/22 01/03/24 mirtazapine 45 mg tablet 45 mg PO BEDTIME 07/21/23 01/03/24 methadone 10 mg/mL oral concentrate 210 mg PO DAILY 07/22/23 01/03/24 albuterol sulfate 90 mcg/actuation 2 puff inhalation QID PRN wheezing 01/03/24 01/03/24 aerosol inhaler (Ventolin HFA) Previous Rx's ?Medication ?Instructions ?Recorded ibuprofen 800 mg tablet 800 mg PO TID PRN pain 30 days #90 07/25/24 tabs Allergies Allergy/AdvReac Type Severity Reaction Status Date / Time No Known Allergies Allergy Verified 07/26/24 16:12 [No Known Allergies*] Review of Systems Review of Systems: Yes all other systems are reviewed and are negative Constitutional: Constitutional: Reports as per HPI [facility] Past Medical History Medical History Opioid use disorder Alcohol withdrawal COVID-19 vaccine series completed IV drug abuse Alcohol abuse Surgical History Hx of tooth extraction History of tonsillectomy Social History Social History (Updated 07/23/24 @ 13:21 by RAQUEL Sandra-A) Household Members: Other Household Members Other:: mother Housing: House Are you a primary health care assistant to a significant other at home: No Do you presently have visiting nurse or other home services: No Alcohol intake: current Alcohol intake frequency: 3 or more drinks per day A lcohol type: hard liquor Patient Tobacco Use Status: Current everyday Tobacco user Tobacco use type: Cigarette Cigarettes Per Day: 20 Years Smoked: 13 e-Cigarette/Vaping Use: Never Used Second Hand Smoke Exposure: No Substance Use Type: Crack/Cocaine, Marijuana and Other Advance Directives: Yes Advance Directives on File: Yes Advance Directives Date on File: 01/05/24 Do you have a plan to hurt others: No Plan service: No Current occupational status: unemployed Physical Exam ED Vital Signs: Vital Signs - 24 hr 07/26/24 16:01 Temperature 98.5 F Pulse Rate 80 Respiratory Rate 16 Blood Pressure 145/67 H Pulse Oximetry 99 Oxygen Delivery Method Room Air BMI result Body Mass Index 24.4 Const Other: General: Awake, alert, and oriented X3. No acute distress. HEENT: Normal inspection CVS: Normal heart rate and rhythm. Pulses normal. Respiratory: No respiratory distress Skin: Warm, dry, no rashes noted to exposed skin. Normal skin color. Normal skin turgor. Extremities: normal to inspection Neuro: Oriented X 3. No motor deficit. No sensory deficit. Course Course Course Narrative: This is an RME: Additional HPI, ROS, PE not included below will be deferred to primary provider. RME assessment and note performed by: Madison Rodriguez PA-C This is a 33-year-old male who presents emergency department for methadone dosing. He went to his clinic this morning and was denied as he failed a Breathalyzer test. He is currently on methadone 235 mg daily. Patient presented to the emergency department earlier today however left without completing treatment as he had a MRI scheduled. Patient well-appearing. Plan: Methadone dosing Medications Administered Discontinued Medications Generic Name Dose Route Start Last Admin Trade Name Freq PRN Reason Stop Dose Admin Methadone HCl 235 mg 07/26/24 16:34 07/26/24 19:30 Methadone Hcl 20 Mg/2 Ml Oral.Conc PO 07/26/24 16:35 235 mg ONCE ONE Administration Medical Decision Making Medical Decision Making MDM Narrative: this is a 33-year-old male, with a history of opioid use disorder on methadone, who presents emergency department for methadone dosing. On arrival, patient mildly hypertensive at 145/67, all other vital signs within normal limits. Patient is currently on methadone 235 daily, unable to get his dose this morning. Dose confirmation was performed and patient was given methadone dosing. Stressed the importance of following up with his methadone clinic. He understands and agrees with plan. Patient stable for discharge. Differential Diagnosis Differential Diagnoses: The differential diagnosis associated with the presentation includes Methadone dosing, medication noncompliance, opioid use disorder Discharge Plan Discharge Clinical Impression: Methadone dependence Patient Disposition: Home, Self-Care Instructions: Opioid Use Disorder (ED) Additional Instructions: You were seen in the emergency department for methadone dosing. You were able to confirm your methadone, we administered methadone 235 mg. Please follow-up with your methadone clinic. Continue taking all at-home medications as prescribed. If any new or worsening symptoms occur including but not limited to chest pain or shortness of breath, please seek emergent care Prescriptions: No Action ibuprofen 800 mg tablet 800 mg PO TID PRN (Reason: pain) 30 Days Qty: 90 0RF albuterol sulfate [Ventolin HFA] 90 mcg/actuation HFA aerosol inhaler 2 puff inhalation QID PRN (Reason: wheezing) mirtazapine 45 mg tablet 45 mg PO BEDTIME methadone 10 mg/mL Concentrate 210 mg PO DAILY omeprazole 20 mg tablet,delayed release (DR/EC) 20 mg PO DAILY@0630 PRN (Reason: Heartburn) clonidine HCl 0.1 mg tablet 0.1 mg PO TID PRN (Reason: Anxiety) Rx Instructions: in the morning, noon, at bedtime hydroxyzine HCl 50 mg tablet 50 mg PO BID PRN (Reason: anxiety) Rx Instructions: in the morning and at noon prazosin 1 mg capsule 1 mg PO BEDTIME Interventions: ED Discharge Assessment Last Done: 07/26/24 19:45 Discharge Date/Time: 07/26/24 19:47 Print Language: Prydeinig
--- NOTE | 2024-07-26 17:03 | HE.PHANOTE ---
Methadone verified [facility] 235 mg last given 07/25
[2024-07-26] MEDS: methADONE HCl 20 MG/2 ML ORAL.CONC 235 MG PO (19:30)
[2024-07-26 19:45] VITALS: BP 125/89; PULSE 86; RESP 20; TEMP 36.7; O2SAT 97
== END 2024-07-26 19:47 | disposition home or self-care (01) ==
PROVIDERS: Emergency Provider Emergency Medicine Emergency Medical Services; PCP Internal Medicine
DX: F11.20 Opioid dependence, uncomplicated (principal)
CPT/HCPCS: 99282; 99283

== ENCOUNTER 2024-07-29 10:46 | Outpatient (AMB) | payer OTHER, SELFPAY ==
--- NOTE | 2024-07-29 10:49 | A.OFFVIS_ITS ---
Vital Signs 07/29/24 10:51 Height 5 ft 11 in Weight 175 lb BMI 24.4 Intake Visit Reasons: Tel-MRI review of his right knee Intake Note: Ced is a 33 year old male who presents today VIA telephone appointment for right knee MRI results. Allergies No Known Allergies [No Known Allergies*] Allergy (Verified 07/26/24 16:12) HPI HPI Tel-MRI review of his right knee: Details: Mr. Rascon and his mother present today via telehealth for his MRI review of the right knee. Patient reports that he is still doing about the same. He continues to struggle with pain. Of note, the patient is on methadone making his pain very difficult to manage. Additionally, his mom says the patient has been having such difficulty managing his pain he is drinking the equivalent of a 12 pack of beer per day. PFSH Medical History Opioid use disorder Alcohol withdrawal COVID-19 vaccine series completed IV drug abuse Alcohol abuse Surgical History Hx of tooth extraction History of tonsillectomy Social History Household Members: Other Household Members Other:: mother Housing: House Are you a primary residential child care counselor to a significant other at home: No Do you presently have visiting nurse or other home services: No Alcohol intake: current Alcohol intake frequency: 3 or more drinks per day Alcohol type: hard liquor Patient Tobacco Use Status: Current everyday Tobacco user Tobacco use type: Cigarette Cigarettes Per Day: 20 Years Smoked: 13 e-Cigarette/Vaping Use: Never Used Second Hand Smoke Exposure: No Substance Use Type: Crack/Cocaine, Marijuana and Other Advance Directives Date on File: 01/05/24 service: No Current occupational status: unemployed Review of Systems Const All systems reviewed & are unremarkable except as noted in HPI and below Physical Exam Vital Signs: BMI result Body Mass Index 24.4 Extrem Other: Deferred due to telehealth Telehealth Telehealth Telehealth Platform: Telephone Location of provider rendering services: practice address Location of patient: address on file Patient Identification confirmed using: Name, : Yes Telehealth method: voice only Patient verbally consented to treatment: Yes Patient verbally consented to billing insurance company: Yes Patient informed of any privacy concerns related to visit: Yes Minutes spent on Phone/Video with Pt.: 15 Assessment & Plan Assessment & Plan (1) ACL (anterior cruciate ligament) rupture: Code(s): S83.519A - Sprain of anterior cruciate ligament of unspecified knee, initial encounter Category: Medical Plan Mr. Rascon and his mother present today via telehealth for his MRI review of the right knee. Patient reports that he is still doing about the same. He continues to struggle with pain. Of note, the patient is on methadone making his pain very difficult to manage. Additionally, his mom says the patient has been having such difficulty managing his pain he is drinking the equivalent of a 12 pack of beer per day. During the telehealth appointment today, I discussed the MRI findings with the patient and his mother. The patient has had a large injury including a bucket- handle lateral meniscus tear, torn ACL tendon with associated kissing contusion, full-thickness fissure through the articular cartilage of the anterior notch of the lateral femoral condyle, intra-articular loose bodies, and multiple sprains and strains. I have recommended that the patient attend physical therapy. This is not only to treat the current injury but also to participate in ACL prehab. However, the patient does have some significant social issues that need to be under control before undergoing surgical intervention. The patient is currently struggling with alcohol abuse. Initially, I sent a prescription for ibuprofen to the pharmacy. However with the significant amount of alcohol that the patient is consuming per day I cautioned him on taking this medication as it could cause concerns regarding GI bleeding and kidney injury. I have recommended weight-bearing as tolerated with the use of crutches if needed. Patient has been using the knee immobilizer since the injury. I have recommended coming out of the knee immobilizer to work on range of motion to avoid any stiffness. I have ordered physical therapy and provided the patient's mother with the contact information to make an appointment. I would like to see the patient back in the office in 8 weeks, sooner if needed. MRI right knee 07/26/2024: IMPRESSION: There is a buckle handle tear of the lateral meniscus. Meniscus is displaced into the anterior joint. Displaced meniscus is slightly larger than the still intact meniscus. There is a horizontal tear of the posterior horn medial meniscus extending to the tibial undersurface. ACL is torn with associated kissing contusion. Additionally, there is a full- thickness fissure through the articular cartilage of the anterior notch of the lateral femoral condyle. There is a grade 2 sprain of PCL. Grade 1 and grade 2 strain of multiple muscle groups, detailed above and soft tissues. There is a joint effusion with intra-articular bodies, one in the lateral recess at the level patella and in the suprapatellar patch deep to distal quadriceps tendon. There is no large chondral defect to suggest these are displaced articular cartilage. Small focal grade 2 sprain of proximal anterior superficial MCL. There is a tear through the deep MCL, meniscal femoral component. Orders: Orders PT Evaluation and Treatment Today S83.519A - Sprain of anterior cruciate ligament of unspecified knee, initial encounter Medications: Discontinued ibuprofen Discontinued Reason: Doctor's Order 800 mg PO TID 30 days PRN 90 tabs 0RF pain Coding Level of Care Code Tele Est Pt Level 4 (51737) Diagnoses ACL (anterior cruciate ligament) rupture S83.519A
[2024-07-29 10:51] VITALS: BMI 24.4
--- OUTSIDE RECORDS SUMMARY | 2024-07-29 12:06 | XMS_ITS | Clinical Summary ---
Author Organization [facility] Address [address] [place] [address] Phone Care Team Providers Care Editor Department Name Role Phone Unavailable Primary Care Provider [...]
== END 2024-07-29 11:04 | disposition home or self-care (01) ==
LOC: HO.HOS 10:46
PROVIDERS: PCP Internal Medicine; Visit Provider Physician Assistant
DX: S83.519A Sprain of anterior cruciate ligament of unspecified knee, initial encounter (principal)
CPT/HCPCS: 99214

== ENCOUNTER 2024-09-10 12:57 | Outpatient (AMB) | payer OTHER, SELFPAY ==
--- OUTSIDE RECORDS SUMMARY | 2024-09-04 23:59 | XMS_ITS | Continuity of Care Document ---
Author Organization [facility] Address [address] [place] [address]- Care Team Providers Care Global Marketing Manager Name Role Phone Teena Basilio [id number] Adult [address] [place] [address]- Encounter Diagnosis Complete tear of right ACL(Discharge Diagnosis) - 08/28/24 Right leg DVT(Discharge Diagnosis) - 08/28/24 Attending Physician: Teena Basilio Encounter Type: Office Visit Allergies, Adverse Reactions, Alerts No Known Allergies Immunizations Given and Recorded Vaccine Date Status Refusal Reason tetanus/diphtheria/pertussis, acel(Tdap) 10/09/23 Recorded tetanus/diphtheria/pertussis, acel(Tdap) 03/13/21 Recorded Hepatitis A Adult Vaccine 04/07/21 Recorded SARS-CoV-2 (COVID-19) mRNA-1273 vaccine 07/24/20 R ecorded SARS-CoV-2 (COVID-19) mRNA-1273 vaccine 06/26/20 R ecorded influenza virus vaccine, inactivated 03/14/16 Give n Rabies Vaccine (oldterm) 1 08/25/08 Given Rabies Vaccine (oldterm) 2 08/22/08 Given Rabies Immune Globulin, Human 08/22/08 Given 1Admin Note: pt karl inj well immunization for day 3 2Result Comment: Lot [id number] exp 01/03/12 Medications apixaban 5 mg oral tablet 1 tablet = 5 mg, By Mouth, 2 times a day, 0 Refills, Maintenance, 08/07/24 4:02:00 PM EDT, Partial fill upon patient request if the prescription is for a schedule II opioid drug. Start Date: 08/07/24 Status: Ordered Repeat number: 1 cloNIDine 0.1 mg oral tablet 1, tablet, By Mouth, 3 times a day, # 90 tablet, Refills 5, Tot. Refills 5, Maintenance, 04/18/24 8:46:00 AM EST, [id number], 180, cm, 03/15/24 13:47:00 EST, Height Start Date: 04/18/24 Status: Ordered Quantity: 90.0 Unit: tablet Repeat number: 6 fluocinolone 0.025% topical cream 1 application, Topically, 2 times a day, # 30 Gm, 0 Refills, Maintenance, 08/07/24 4:38:00 PM EDT, Cream, [facility]/pharmacy #[id number], Partial fill upon patient request if the prescription is for a schedule IIopioid drug., 1 application Topically 2 times a day, 180, cm, 08/07/24 15:54:00 EDT, Height Start Date: 08/07/24 Status: Ordered Quantity: 30.0 Unit: g Repeat number: 1 hydrOXYzine hydrochloride 50 mg oral tablet 1 tablet, By Mouth, 2 times a day, PRN NEEDED FOR ANXIETY, # 60 tablet, 5 Refills, Maintenance, 07/15/24 11:54:00 AM EDT, [id number], 180, cm, 04/30/24 11:00:00 EDT, Height Start Date: 07/15/24 Status: Ordered Quantity: 60.0 Unit: tablet Repeat number: 1 Methadone See Instructions, 230 mg By Mouth, 0 Refills, Maintenance, 03/14/16 9:41:18 AM EST Start Date: 03/14/16 Status: Ordered Repeat number: 1 mirtazapine 45 mg oral tablet 1 tablet, By Mouth, Daily at bedtime, # 30 tablet, 2 Refills, Maintenance, 06/26/24 9:53:00 PM EDT, [facility]/pharmacy #[id number], Please ask pt to call office to schedule appointment for any further refills., 180, cm, 04/30/24 11:00:00 EDT, Height Start Date: 06/26/24 Status: Ordered Quantity: 30.0 Unit: tablet Repeat number: 3 omeprazole 20 mg oral enteric coated capsule 1 capsule = 20 mg, By Mouth, Daily, # 90 capsule, 1 Refills, Maintenance, 06/26/24 9:56:00 PM EDT, EC Capsule, [facility]/pharmacy #[id number], Partial fill upon patient request if the prescription is for a schedule II opioid drug., 180, cm, 04/30/24 11:00:00 EDT, Height Start Date: 06/26/24 Status: Ordered Quantity: 90.0 Unit: capsule Repeat number: 2 Indications: Gastro-esophageal reflux disease without esophagitis; prazosin 1 mg oral capsule 1, capsule, By Mouth, Daily at bedtime, # 90 capsule, Refills 1, Tot. Refills 1, Maintenance, 06/25/24 3:08:00 PM EDT, Route to Pharmacy Electronically, [facility]/pharmacy #[id number], 180, cm, 04/30/24 11:00:00 EDT, Height Start Date: 06/25/24 Status: Ordered Quantity: 90.0 Unit: capsule Repeat number: 2 Ventolin HFA 108 mcg/inh inhalation aerosol with adapter 2 puffs, Inhalation, 4 times a day, PRN NEEDED FOR WHEEZING, # 18 each, 1 Refills, Maintenance, 07/24/24 10:41:00 AM EDT, [facility]/pharmacy #[id number], 180, cm, 04/30/24 11:00:00 EDT, Height Start Date: 07/24/24 Status: Ordered Quantity: 18.0 Unit: each Repeat number: 2 Problem List Condition Confirmation Course Effective Dates Status H ealth Status Informant Alcohol dependence in early full remission Confirmed Active Complete tear of right ACL Confirmed Active Contact dermatitis Confirmed Active Right leg DVT Confirmed Active Psychogenic nonepileptic seizure Confirmed Active History of traumatic brain injury Confirmed Active Open wound of right upper arm Confirmed Active Polysubstance abuse Confirmed Active PTSD (post-traumatic stress disorder) Confirmed Active Major depressive disorder, severe Confirmed Active Hepatitis C Confirmed Active Diagnosis Diagnosis Type Effective Dates Health Status inical Service Informant Complete tear of right ACL Discharge Diagnosis 08/28/24 Right leg DVT Discharge Diagnosis 08/28/24 Social History Social History Type Response Smoking Status Current every day sm oker; Tobacco user in household: Yes; Type: Cigarettes; Interested in cessation: No; Tobacco use times per day: half of pack a day; Number of years: 5; Started at age: 20; entered on: 03/14/16 Sex Sex Representation Male (finding) Patient Care team information Care Team Personnel Name: Lana Pedraza RN Position: [facility] SN RN Member Role: Primary Care Nurse Name: Kirti Charlton RN Position: [facility] RN Member Role: Primary Care Nurse Name: Brandan Lakhani RN Position: [facility] SN RN Member Role: Primary Care Nurse Name: Yaritza Woodard RN Position: [facility] RN Member Role: Primary Care Nurse Name: Cricket Nieto RN Position: [facility] RN Member Role: Primary Care Nurse Name: Beau Bell RN Position: [facility] RN Member Role: Primary Care Nurse Name: Sonia Hagan RN Position: [facility] RN Member Role: Primary Care Nurse Name: Devi Rose RN Position: [facility] RN Supv Member Role: Primary Care Nurse Name: Rashi Broderick RN Position: [facility] ED RN W/OE and Tasks Member Role: Primary Care Nurse Name: Teena Basilio Position: [facility] PCO Associate Professional Member Role: PCP Address: [address] [place] [id number] Telecom: Name: Joaquina Carbajal RN Position: [facility] RN Member Role: Primary Care Nurse Name: Charo Daily RN Position: [facility] RN Member Role: Primary Care Nurse Name: Danika Gonzales RN Position: [facility] RN Member Role: Primary Care Nurse Name: Alec Chiang RN Position: [facility] RN Member Role: Primary Care Nurse Care Team Related Persons Name: CARINE RODRIGUES Name: CARINE RODRIGUES Name: IBAN SOLORZANO Insurance Providers Guarantor name: CHICO RODRIGUES Health Plan Information #: 1 Payer: [facility] Payer Identifier: NA Member Number: [id number] Group Number: [id number] Subscriber Identifier: [id number] Relationship to Subscriber: self Coverage Type: Medicaid (Managed Care) Coverage Verification Date: NA Telecom: NA Address: NA
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
[2024-09-10 13:07] VITALS: BMI 24.4
--- OUTSIDE RECORDS SUMMARY | 2024-09-10 13:44 | XMS_ITS | Clinical Summary ---
Author Organization [facility] Address [address] [place] [address] Phone Care Team Providers Care Equipment Operat0R Name Role Phone Unavailable Primary Care Provider [...] 2008 COVID-19 Vaccine (2023-2 5 season) 2023 HIV Screening 12/10/2023 Hepatitis C Screening 12/10/2023 Social Influencers of Health Screening 12/10/2023 Depression Screening 02/14/2024 Influenza Vaccine (#1) 2024 HIB Vaccines Aged Out No longer [...] 5 Years) and At-Risk Patients (6 to 49 Years) Aged Out No longer eligible b ased on patient's age to complete this topic RSV Immunization Patients Un silvino 20 months Aged Out No longer eligible b ased on patient's age to complete this topic Varicella Vaccines Aged Out No longer eligible based on patient's age to complete this topic
--- OUTSIDE RECORDS SUMMARY | 2024-09-10 13:44 | XMS_ITS | Referral Summary ---
Author Organization [facility] Address [address] [place] [address] Care Team Providers Care Caustic Liquor Maker Name Role Phone Patient, Has No Pcp Or Ref Primary Care Provider Unavailable Encounters * This document contains information received from the source organization and may not represent a complete record from that organization. Date Type Department Care Team Description 07/30/2024 4:53 AM EDT - 07/30/2024 1:41 PM EDT Emergency [facility] [address] [place] [id number] Cassidy Hoff, Constance Suresh MD Pain and swelling of right lower extremity (Primary Dx); Acute deep vein thrombosis (DVT) of other specified vein of right lower extremity (HCC) Discharge Disposition: Home or Self Care (01) from Last 3 Months Allergies No known active allergies Medications * This document contains information received from the source organization and may not represent a complete record from that organization. apixaban (ELIQUIS) 5 mg tablet Take 2 tablets (10 mg total) by mouth every 12 hours for 7 days, THEN 1 tablet (5 mg total) every 12 hours for 23 days. 74 tablet 07/30/2024 9:49 AM EDT 07/30/2024 Active Social History Tobacco Use Types Packs/Day Years Used Date Smoking Tobacco: Never Assessed Sex and Gender Information Value Date Recorded Sex Assigned at Male 07/30/2024 1:16 AM EDT Legal Sex Male 7:13 PM EDT Gender Identity Male 07/30/2024 1:16 AM EDT Sexual Orientation Not on file Last Filed Vital Signs Vital Sign Reading Time Taken Comments Blood Pressure 129/77 07/30/2024 11:16 AM EDT Pulse 62 07/30/2024 11:16 AM EDT Temperature 36.3 C (97.3 F) 07/30/2024 11:16 AM EDT Respiratory Rate 18 07/30/2024 11:16 AM EDT Oxygen Saturation 97% 07/30/2024 11:16 AM EDT Inhaled Oxygen Concentration - - Weight 79.4 kg (175 lb) 07/29/2024 8:36 PM EDT Height 180.3 cm (5' 11 ) 07/29/2024 8:36 PM EDT Body Mass Index 24.41 07/29/2024 8:36 PM EDT Plan of Treatment Not on file Procedures * Due to [place] Seeo law, this organization might not be sharing negative HIV tests. Procedure Name Priority Date/Time Associated Diagnosis Comments LOWER LIMB VENOUS DUPLEX: UNILATERAL, RIGHT STAT 07/30/2024 7:38 AM EDT Pain and swelling of right lower extremity from Last 3 Months Results * Due to [place] law, this organization might not be sharing negative HIV tests. * LOWER LIMB VENOUS DUPLEX: UNILATERAL, RIGHT (07/30/2024 7:38 AM EDT) Anatomical Region Laterality Modality Lower Extremities Ultrasound Narrative 07/30/2024 5:40 PM EDT Acute deep vein thrombosis of the right lower extremity was identified in the gastrocnemius veins. The right common femoral vein, proximal profunda femoris vein, femoral vein, popliteal vein, posterior tibial veins, peroneal veins, and proximal great saphenous vein were patent and without thrombosis. Lower Venous Duplex Right Right Proximal Common Femoral: patent; fully compressible; normal phasicity Right Distal Common Femoral: patent; fully compressible Right Proximal Profunda Femoral: patent; fully compressible Right Proximal Femoral: patent; fully compressible Right Mid Femoral: patent; fully compressible Right Distal Femoral: patent; fully compressible Right Popliteal: patent; fully compressible Right Gastrocnemius: acute thrombus; not compressible Right Posterior Tibial: patent; fully compressible Right Peroneal: patent; fully compressible Right Great Saphenous - Saphenofemoral Junction: patent; fully compressible Right Great Saphenous - Proximal Thigh: patent; fully compressible Right Small Saphenous - Proximal: patent; fully compressible Contralateral (Left) Proximal Common Femoral: normal phasicity Tech Comments Right leg injury us Cassidy Hoff DO CV VASCULAR PROCEDURES Final Re sult from Last [address] [facility] MEDICAID Care Teams Caustic Liquor Maker Relationship Specialty Start Date End Date Patient, Has No Pcp Or Ref DO NOT EDIT THIS RECORD VIA PROVIDER ON THE FLY PCP - General Educational Specialist 07/29/24
== END 2024-09-10 13:34 | disposition home or self-care (01) ==
LOC: HO.HOS 12:58
PROVIDERS: PCP Internal Medicine; Visit Provider Physician Assistant
DX: S83.519A Sprain of anterior cruciate ligament of unspecified knee, initial encounter (principal); F19.10 Other psychoactive substance abuse, uncomplicated; Z87.898 Personal history of other specified conditions; S83.200A Bucket-handle tear of unspecified meniscus, current injury, right knee, initial encounter
CPT/HCPCS: 99214

== ENCOUNTER → 2024-09-10 12:57 | Outpatient (BNVA) | payer OTHER, SELFPAY | PROVIDERS: PCP Internal Medicine; Visit Provider Physician Assistant | DX: M25.561 Pain in right knee (principal); S83.511A Sprain of anterior cruciate ligament of right knee, initial encounter; F19.10 Other psychoactive substance abuse, uncomplicated; Z87.898 Personal history of other specified conditions; S83.200A Bucket-handle tear of unspecified meniscus, current injury, right knee, initial encounter | CPT/HCPCS: 99212 ==